=== PATIENT | female | born 1950 | race Caucasian/White ===

== ENCOUNTER 2016-09-19 09:12 | Inpatient (IN) | payer OTHER, MEDICARE ==
[~2016-09-19] VITALS: Ht 160 cm; Wt 46.7 kg
[~2016-09-19 09:12] MED LIST: ACEPHEN650 M1 PR; ACETAMINOPHEN325 M2 PO; ALBUTEROL0.09 MG/A1 INH; AUGMENTIN 875 M1 TAB PO; COLACE100 M1 PO; DIPHENOXYLATE-1 EACH PO; DRONABINOL2.5 M1 PO; DULCOLAX10 M1 RC; FAMOTIDINE20 M1 PO; FLAGYL250 M1 PO; FLEET ENEMA133 ML RC; FLORASTOR250 M1 PO; HEPARIN SO5000 UNIT/ SC; KLOR-CON 1010 ME1 PO; LEVOTHYROXINE100 MC1 PO; LEVOTHYROXINE112 MCG PO; LISINOPRIL40 M1 PO; LOPERAMIDE2 M2 PO; MAALOX ADVANCE1 EACH PO; MILK OF MA400 MG/52 PO; MULTI-DAY VITA1 EACH PO; NORVASC 5MG TAB5 MG PO; OMEPRAZOLE20 M2 PO; ONDANSETRON ODT4 M1 PO; ONDANSETRON4 MG/2 M3 IV; OXYCODONE HCL30 M1 PO; OXYCODONE-ACET1 EACH PO; OXYCONTIN30 M1 PO; PERCOCET 5-3251 EACH PO; PRAVACHOL40 M1 PO; PREVALITE PACKET4 GM PO; PROCHLORPERAZIN10 MG PO; PROMETH/CODEIN120 ML PO; REMERON15 M2 PO; SANCUSO1 EACH TOP; SENNA8.6 M3 PO; SIMETHICONE80 M1 PO; TYLENOL325 M1 PO; VANCOCIN HCL250 MG PO; VANCOMYCIN HCL1 G1 IV; VANCOMYCIN HCL5 G1 PO; WELLBUTRIN100 MG PO; XANAX0.25 M1 PO; XIFAXAN550 M1 PO; ZANTAC 7575 M1 PO; ZOFRAN ODT4 M1 SL
--- NOTE | 2016-09-19 09:25 | NUR ---
65 YEAR OLD FEMALE TO ER WITH FAMILY , PT HAS METASTATIC CANCER. PT HAS BEEN UNABLE TO EAT FOR 3 WEEKS, STATES THAT ANYTHING THAT SHE SWALLOWS COMES BACK UP. DENIES REFLUX AND HAS 10/10 PAIN IN ABDOMEN UP HER MID CHEST.
--- NOTE | 2016-09-19 09:34 | NUR ---
PT TO ROOM 1, ASSISTED TO STRETCHER. UNABLE TO STAND. CHANGED INTO GOWN. PROVIDED WARM BLANKETS. BEAR CAMPBELL IN FOR EVAL.
--- NOTE | 2016-09-19 09:40 | ED GENERAL ADULT ---
History of Present Illness General Chief Complaint: General Adult Stated Complaint: DECREASED APPETITE X 3WEEKS, WEAKNESS Source: patient, family, old records Exam Limitations: clinical condition Vital Signs & Intake/Output Vital Signs & Intake/Output Vital Signs Date Time Temp Pulse Resp B/P Pulse O2 O2 Flow FiO2 Ox Delivery Rate 09/19 1503 97.5 82 18 120/73 99 09/19 1319 98.1 76 18 138/71 100 09/19 1113 97.5 74 18 146/71 99 09/19 0921 98.0 110 18 116/79 92 Room Air Allergies Coded Allergies: ibuprofen (Intermediate, KIDNEY AND ABDOMINAL PAIN 04/15/16) Reconcile Medications Albuterol Sulfate (Proair Hfa) 90 MCG HFA.AER.AD 2 PUF INH Q4-6 PRN PRN SOB ( Reported) Alprazolam 0.25 MG TABLET 1 TAB PO DAILY NEEDED ANXIETY (Reported) Bupropion HCl (Wellbutrin) 100 MG TABLET 1 TAB PO BID DEPRESSION Diphenoxylate HCl/Atropine (Lomotil 2.5-0.025 MG Tablet) 2.5 MG-0.025 MG TABLET 1 TAB PO 4 TIMES/DAY DIARHEA (Reported) Dronabinol (Marinol) 2.5 MG CAPSULE 1 CAP PO EVERY 6HRS- NEEDED N/C ( Reported) Famotidine 40 MG/5 ML (8 MG/ML) ORAL.SUSP 40 MG PO BID GERD (Reported) Granisetron (Sancuso) 3.1 MG/24 HOUR PATCH.TDWK 1 PAT TOP UNKNOWN (Reported) Levothyroxine Sodium (Synthroid) 100 MCG TABLET 1 TAB PO DAILY THYROID ( Reported) Loperamide HCl (Imodium A-D) 2 MG CAPSULE 2 MG PO PRN PRN DIARRHEA (Reported) Multivitamin (Multivitamins) 1 EACH CAPSULE 1 TAB PO D SUPPLEMENT (Reported) Potassium Chloride (Klor-Con 10) 10 MEQ TABLET.ER 2 TAB PO DAILY HYPOKALEMIA Pravastatin Sodium 40 MG TABLET 1 TAB PO QPM CHOLESTEROL (Reported) Sucralfate (Carafate) 1 GRAM/10 ML ORAL.SUSP 10 ML PO 4 TIMES/DAY GASTRITIS ( Reported) 1 hour before food and bedtime Triage Note: 65 YEAR OLD FEMALE TO ER WITH FAMILY , PT HAS METASTATIC CANCER. PT HAS BEEN UNABLE TO EAT FOR 3 WEEKS, STATES THAT ANYTHING THAT SHE SWALLOWS COMES BACK UP. DENIES REFLUX AND HAS 10/10 PAIN IN ABDOMEN UP HER MID CHEST. Triage Nurses Notes Reviewed? yes Onset: Abrupt Duration: week(s):, getting worse Timing: recent history Injury Environment: home No Modifying Factors: none HPI: 65-year-old female, HTN/HLD/hypoT4/chronic back pain/anxiety & depression, C. 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 Patient reports that she's been having a lot of saliva coming up and has had a decrease in oral intake. Patient has been on liquid diet but is having difficulty with eating recently or taking any of her medications. She is supposed to be getting an outpatient endoscopy by Dr. Grant. He denies any diarrhea. Denies any fever or chills. General weakness. Is currently still on chemotherapy. (SUSAN SCHROEDER) Past History Travel History Traveled to [place] past 21 day No Medical History Any Pertinent Medical History? see below for history Neurological: NONE EENT: NONE Cardiovascular: hypertension, hyperlipidemia Respiratory: pulmonary metastases Gastrointestinal: C. 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 FH: myocardial infarction SISTER FH: multiple sclerosis MOTHER (Biologic mother- unknown). Hx Contributory? No (SUSAN SCHROEDER) Review of Systems Review of Systems Constitutional: Reports: see HPI. EENTM: Reports: no symptoms. Respiratory: Reports: no symptoms. Cardiovascular: Reports: see HPI. GI: Reports: see HPI. Genitourinary: Reports: no symptoms. Musculoskeletal: Reports: no symptoms. Skin: Reports: no symptoms. Neurological/Psychological: Reports: no symptoms. Hematologic/Endocrine: Reports: no symptoms. Immunologic/Allergic: Reports: no symptoms. All Other Systems: Reviewed and Negative (SUSAN SCHROEDER) Physical Exam Physical Exam General Appearance: lethargic, moderate distress, thin Head: atraumatic, normal appearance Eyes: Bilateral: normal appearance, EOMI. Ears, Nose, Throat: normal ENT inspection, hearing grossly normal Neck: normal inspection Respiratory: normal breath sounds, no respiratory distress Cardiovascular: regular rate/rhythm Gastrointestinal: soft Back: normal inspection Extremities: normal inspection Neurologic/Psych: awake, alert, oriented x 3, normal gait Skin: intact, normal color Core Measures ACS in differential dx? No CVA/TIA Diagnosis: No Severe Sepsis Present: No Septic Shock Present: No (SUSAN SCHROEDER) Progress Differential Diagnoses I considered the following diagnoses in my evaluation of the patient: Esophageal candidiasis, gastritis, esophageal metastatic disease, H. pylori, C. difficile, [place], Plan of Care: Orders Procedure Date/time Status Nothing by Mouth 09/20 B Active CBC WITHOUT DIFFERENTIAL 09/20 06 Active BASIC ELECTROLYTES PLUS BUN&CR 09/20 0600 Active Regular Diet 09/19 D Complete Vital Signs 09/19 1608 Active Teach/Educate 09/19 1608 Active Pain Treatment and Response 09/19 1608 Active Nutritional Intake, Monitor 09/19 1608 Active Isolation 09/19 1608 Active Intake & Output 09/19 1608 Active Patient Care Conference 09/19 1608 Active Activity/Ambulation 09/19 1608 Active OXYGEN SETUP (GEN) 09/19 1417 Active Saline Lock 09/19 1417 Active Admit to inpatient 09/19 1417 Active Vital Signs 09/19 1417 Active Activity/Ambulation 09/19 1417 Active Code Status 09/19 1351 Active Pathway - chart 09/19 1339 Active House Staff 09/19 1339 Active Patient Data 09/19 1339 Active Code Status 09/19 1339 Complete Patient Data 09/19 1308 Active Intake & Output 09/19 1014 Active BLOOD CULTURE 09/19 0950 Active URINALYSIS 09/19 0939 Active TROPONIN LEVEL 09/19 0939 Complete LACTIC ACID 09/19 0939 Complete COMPREHENSIVE METABOLIC PANEL 09/19 0939 Complete CBC WITHOUT DIFFERENTIAL 09/19 0939 Complete EKG 09/19 0939 Active VTE Mechanical Prophylaxis 09/19 UNK Active Current Medications Sig/Keny Start time Last Medication Dose Stop Time Status Admin Levothyroxine Sodium 0.1 MG DAILY 09/20 1000 AC (Synthroid) Potassium Chloride 20 MEQ DAILY 09/20 1000 AC (K-Dur) Pravastatin Sodium 40 MG DAILY 09/20 1000 AC (Pravachol) Omeprazole 40 MG DAILY AC 09/20 0700 AC (Prilosec) Bupropion HCl 100 MG BID 09/19 2200 AC (Wellbutrin) Lidocaine 15 ML TID 09/19 1604 AC (Xylocaine Viscous) Trimethobenzamide HCl 200 MG TID PRN 09/19 1515 AC (Tigan) Albuterol Sulfate 2 PUF Q4-6 PRN PRN 09/19 1400 AC (Ventolin) Dronabinol 2.5 MG EVERY 6HRS- NEED.. 09/19 1400 AC (Marinol) Sucralfate 1 GM 4 TIMES/DAY 09/19 1400 AC (Carafate Suspension) Acetaminophen 325 MG Q6 PRN 09/19 1345 AC (Tylenol) Acetaminophen 1,000 MG Q6P PRN 09/19 1345 AC (Ofirmev) Morphine Sulfate 2 MG Q4P PRN 09/19 1345 AC (Morphine) Laboratory Tests 09/19/16 1239: Lactic Acid Cancelled 09/19/16 1018: Anion Gap 6, Estimated GFR > 60, BUN/Creatinine Ratio 8.8, Glucose 81, Lactic Acid 1.4, Calcium 9.9, Total Bilirubin 1.0, AST 27, ALT 26, Alkaline Phosphatase 139 H, Troponin I < 0.01, Total Protein 5.9 L, Albumin 2.6 L, Globulin 3.3, Albumin/Globulin Ratio 0.8 L, CBC w Diff NO MAN DIFF REQ, RBC 3.04 L, MCV 88.0 , MCH 29.4, RDW 21.1 H, MPV 6.4 L, Gran % 60.4, Lymphocytes % 30.2, Monocytes % 8.4, Eosinophils % 0.8, Basophils % 0.2, Absolute Granulocytes 1.8, Absolute Lymphocytes 0.9 L, Absolute Monocytes 0.3, Absolute Eosinophils 0, Absolute Basophils 0, PUBS MCHC 33.4 Microbiology 09/19 1020 BLOOD: Blood Culture - RECD 09/19 1000 BLOOD: Blood Culture - RECD 09/19 938 BLOOD: Blood Culture - CAN Cancelled: Cancelled via OE: Per MD Decision 09/19 938 BLOOD: Blood Culture - CAN Cancelled: Cancelled via OE: Per MD Decision Diagnostic Imaging: Viewed by Me: CT Scan. Discussed w/RAD: CT Scan. Radiology Impression: SERVICE DATE: 09/19/16 EXAM TYPE: CAT - CT ABD & PELVIS W IV CONTRAST; CT CHEST W IV CONTRAST EXAMINATION: CT CHEST WITH CONTRAST CT ABDOMEN AND PELVIS WITH CONTRAST CLINICAL INFORMATION: Difficulty swallowing. History of uterine cancer. COMPARISON: 07/14/2016 TECHNIQUE: Multidetector volumetric CT imaging of the chest, abdomen, and pelvis was obtained after the administration of 94 mL of Optiray 320 intravenous contrast without immediate adverse reactions. Axial MIP volume rendering provided. Sagittal and coronal reformatted images were obtained. DLP: 347 mGy-cm FINDINGS: Previously demonstrated parenchymal nodules in the right upper lobe, middle lobe, and lower lobe have slightly decreased in size. There is a new area of consolidation peripherally in the right upper lobe abutting the lateral aspect of the major fissure which may represent pneumonia although a new neoplastic lesion as a possibility. There is a small right pleural effusion which is new. There is circumferential wall thickening of the mid and distal esophagus, approximately 9 cm in length to the gastroesophageal junction, which is new and most likely inflammatory/infectious rather than neoplastic. There is an air-fluid level within the esophagus. There is soft tissue stranding/thickening of the surrounding fat. Small pericardial effusion is similar. The liver, spleen, and pancreas are unremarkable. No biliary ductal dilatation. The adrenal glands appear normal. Stable large right renal cyst. A subcentimeter exophytic soft tissue attenuation lesion at the inferior pole of the left kidney is stable. Circumferential wall thickening of the colon has significantly improved, with persistent areas of wall thickening involving the ascending colon as well as a segment of the sigmoid colon. Scattered diverticulosis. No obstruction. Complex uterine masses do not appear significantly changed. L4 burst fracture is again demonstrated with marked narrowing of the central canal. Possible metastasis within the right aspect of S1, not significantly changed. IMPRESSION: There is new circumferential wall thickening of the mid/distal esophagus, approximately 9 cm in length extending to the gastroesophageal junction with surrounding soft tissue thickening/stranding which is most likely inflammatory/infectious, with esophageal air-fluid level. The colonic wall thickening has significantly improved, with persistent thickening of the ascending colon and a portion of the sigmoid. Similar-appearing complex uterine masses. Stable subcentimeter exophytic left renal lesion. L4 burst fracture with lytic destruction and marked central stenosis. Right upper lobe, middle lobe, and lower lobe nodules have slightly decreased in size. There is a new small area of airspace opacity in the posterolateral aspect of the right upper lobe, abutting the major fissure, which may represent pneumonia. DICTATED BY: JEROME OZUNA MD DATE/TIME DICTATED: 09/19/161351 [facility] CONSULTANT:TUTU DATE/TIME TRANSCRIBED:09/19/161351 Initial ED EKG: normal intervals, normal p-waves, normal QRS complex, normal sinus rhythm, rate (62) (SUSAN SCHROEDER) Departure Departure Disposition: STILL A PATIENT Condition: Stable Clinical Impression Primary Impression: Dysphagia Referrals: NAKIA LARES,PHU Vargas (PCP/Family) Departure Forms: Customer Survey General Discharge Information Admission Note Spoke With: TINY SIERRA MD Documentation of Exam: Documentation of any treatments & extenuating circumstances including Concerns Regarding Discharge (functional status, medication knowledge or non-compliance, living conditions, etc.) that warrant an admission rather than observation: Patient will require upper endoscopy and GI consultation. Patient not able to take in food. Patient will require IV hydration. Patient may require a PEG tube. Oncology consultation. Patient has abnormal findings on CT scan showinG thickening of the distal esophagus. (SUSAN SCHROEDER) PA/FEEDER WORKER POWER UNIT OPERATOR Co-Sign Statement Statement: ED Attending supervision documentation- x I saw and evaluated the patient. I have also reviewed all the pertinent lab results and diagnostic results. I agree with the findings and the plan of care as documented in the PA's/FEEDER WORKER POWER UNIT OPERATOR's documentation. [] I have reviewed the ED Record and agree with the PA's/FEEDER WORKER POWER UNIT OPERATOR's documentation. [] Additions or exceptions (if any) to the PAs/FEEDER WORKER POWER UNIT OPERATOR's note and plan are summarized below: [] (GERALDINE PERDUE,JANUSZ) Critical Care Note Critical Care Note Critical Care Time: non-applicable (SUSAN SCHROEDER)
[2016-09-19 10:38] LABS: ABSOLUTE BASOPHIL COUNT 0 /CUMM (0.0-0.2); ABSOLUTE EOSINOPHIL COUNT 0 /CUMM (0.0-0.7); ABSOLUTE GRANULOCYTE CT 1.8 /CUMM (1.4-6.5); ABSOLUTE LYMPH COUNT 0.9 /CUMM (1.2-3.4); ABSOLUTE MONOCYTE COUNT 0.3 /CUMM (0.10-0.60); BASOPHIL % 0.2 % (0.0-2.0); EOSINOPHIL % 0.8 % (0-5); GRANULOCYTE % 60.4 % (42.2-75.2); HEMATOCRIT 26.7 % (37-47); MEAN CORPUSCULAR HGB 29.4 PG (27.0-31.0); MEAN CORPUSCULAR HGB CONC 33.4 G/DL (33.0-37.0); MEAN PLATELET VOLUME 6.4 FL (7.4-10.4); PLATELET COUNT 276 /CUMM (130-400); RBC DISTRIBUTION WIDTH 21.1 % (11.5-14.5); RED BLOOD CELL CT 3.04 /CUMM (4.20-5.40); WHITE BLOOD CELL COUNT 3.1 /CUMM (4.8-10.8)
[2016-09-19] MEDS ORDERED: FAMOTIDINE40 MG/5 M1 PO (10:39)
[2016-09-19] MEDS ORDERED: ALPRAZOLAM0.25 M1 PO (10:40)
[2016-09-19] MEDS ORDERED: BUPROPION HCL100 M2 PO (10:40)
[2016-09-19] MEDS ORDERED: CARAFATE1 GM/10 M1 PO (10:43)
[2016-09-19] MEDS ORDERED: LOMOTIL 2.5-0.1 EACH PO (10:45)
[2016-09-19] MEDS ORDERED: MARINOL2.5 MG PO (10:46)
[2016-09-19] MEDS ORDERED: SYNTHROID100 MCG PO (10:47)
[2016-09-19] MEDS ORDERED: IMODIUM A-D2 M2 PO (10:47)
[2016-09-19] MEDS ORDERED: MULTIVITAMINS1 EAC8 PO (10:48)
[2016-09-19] MEDS ORDERED: PROAIR HFA8.5 GM INH (10:49)
[2016-09-19] MEDS ORDERED: PRAVASTATIN SOD40 M2 PO (10:49)
--- NOTE | 2016-09-19 12:00 | NUR ---
AWAITING POC/DISPO Informed waiting has been performed.
--- NOTE | 2016-09-19 12:15 | NUR ---
BEAR CAMPBELL IN TO REVIEW POC.
--- NOTE | 2016-09-19 12:30 | NUR ---
PLAN IS FOR ADMISSION. RESTING ON STRETCHER. Informed waiting has been performed.
--- NOTE | 2016-09-19 12:59 | NUR ---
PT TO CAT SCAN.
--- NOTE | 2016-09-19 13:17 | NUR ---
BACK FROM CAT SCAN
--- NOTE | 2016-09-19 13:42 | NUR ---
HOUSESTAFF IN FOR EVAL
--- NOTE | 2016-09-19 14:01 | History & Physical ---
See Addendum GIANCARLO PERDUE,[facility] 09/19/16 1400: General Information and HPI MD Statement: I have seen and personally examined MISBAH ALFREDO and documented this H&P. The patient is a 65 year old F who presented with a patient stated chief complaint of [pain with swallowing]. Source of Information: patient, old records Exam Limitations: no limitations History of Present Illness: Ms. 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 difficile positive, patient presented to ED with chief complaint of difficulty and painful swallowing for the last 3 weeks. Patient reported feeling pain at the lower chest close to epigastric area with swallowing, upon asking her if it's for solid or liquid, her answer was "nonspecific", she reported feeling severe pain upon swallowing and afterward she will start to spit saliva for symptomatic relief, denied nausea, vomiting, fever, positive history of chills. Patient denied any abdominal pain, diarrhea or constipation. She is following with Dr. Cavanaugh for uterine leiomyosarcoma on chemotherapy, last visit was last when he prescribed her PPI and sucralfate liquid but it didn't help, today she woke up with severe pain in her epigastric area even without eating anything and decided to come to ED for evaluation. Patient has an appointment with Dr. Smith next Sunday for dysphagia/ odynophagia. Allergies/Medications Allergies: Coded Allergies: ibuprofen (Intermediate, KIDNEY AND ABDOMINAL PAIN 04/15/16) Home Med list Albuterol Sulfate (Proair Hfa) 90 MCG HFA.AER.AD 2 PUF INH Q4-6 PRN PRN SOB ( Reported) Alprazolam 0.25 MG TABLET 1 TAB PO DAILY NEEDED ANXIETY (Reported) Bupropion HCl (Wellbutrin) 100 MG TABLET 1 TAB PO BID DEPRESSION Diphenoxylate HCl/Atropine (Lomotil 2.5-0.025 MG Tablet) 2.5 MG-0.025 MG TABLET 1 TAB PO 4 TIMES/DAY DIARHEA (Reported) Dronabinol (Marinol) 2.5 MG CAPSULE 1 CAP PO EVERY 6HRS- NEEDED N/C ( Reported) Famotidine 40 MG/5 ML (8 MG/ML) ORAL.SUSP 40 MG PO BID GERD (Reported) Granisetron (Sancuso) 3.1 MG/24 HOUR PATCH.TDWK 1 PAT TOP UNKNOWN (Reported) Levothyroxine Sodium (Synthroid) 100 MCG TABLET 1 TAB PO DAILY THYROID ( Reported) Loperamide HCl (Imodium A-D) 2 MG CAPSULE 2 MG PO PRN PRN DIARRHEA (Reported) Multivitamin (Multivitamins) 1 EACH CAPSULE 1 TAB PO D SUPPLEMENT (Reported) Potassium Chloride (Klor-Con 10) 10 MEQ TABLET.ER 2 TAB PO DAILY HYPOKALEMIA Pravastatin Sodium 40 MG TABLET 1 TAB PO QPM CHOLESTEROL (Reported) Sucralfate (Carafate) 1 GRAM/10 ML ORAL.SUSP 10 ML PO 4 TIMES/DAY GASTRITIS ( Reported) 1 hour before food and bedtime Past History Travel History Traveled to [place] past 21 day No Medical History Neurological: NONE EENT: NONE Cardiovascular: hypertension, hyperlipidemia Respiratory: pulmonary metastases Gastrointestinal: C. 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 FH: myocardial infarction SISTER FH: multiple sclerosis MOTHER (Biologic mother- unknown). Psychosocial History Who Do You Live With? self (2 dtrs live closeby) Services at Home: None Primary Language: Italian ETOH Use: denies use Illicit Drug Use: denies illicit drug use Living Will? no Power of Cnc Manager/HCP? no Functional Ability ADLs Independent: dressing, eating, toileting. Needs Assist: bathing. Ambulation: independent IADLs Independent: telephone. Needs Assist: shopping, housework, finances, food prep, transportation, medication admin. Review of Systems Review of Systems Constitutional: Reports: see HPI. Exam & Diagnostic Data Last 24 Hrs of Vital Signs/I&O Vital Signs Date Time Temp Pulse Resp B/P Pulse O2 O2 Flow FiO2 Ox Delivery Rate 09/19 1503 97.5 82 18 120/73 99 09/19 1319 98.1 76 18 138/71 100 04/04 1113 97.5 74 18 146/71 99 09/19 0921 98.0 110 18 116/79 92 Room Air Intake & Output 09/19 1600 09/19 0800 04 0000 Intake Total 1000 Output Total Balance 1000 Intake, IV 1000 Patient 47.627 kg Weight Physical Exam General Appearance Alert, Oriented X3, Cooperative, No Acute Distress, cachectic Skin No Rashes, No Breakdown, No Significant Lesion HEENT Atraumatic, PERRLA, EOMI, Mucous Membr. moist/pink Neck Supple, No JVD, portal line the right chest, no signs of inflammation at the exit site Cardiovascular Regular Rate, Normal S1, Normal S2, No Murmurs Lungs Clear to Auscultation, Normal Air Movement Abdomen Normal Bowel Sounds, Soft, No Tenderness Neurological Normal Gait, Normal Speech, Strength at 5/5 X4 Ext, Normal Tone, Sensation Intact, Cranial Nerves 3-12 NL, Reflexes 2+ Extremities No Clubbing, No Cyanosis, No Edema, Normal Pulses Assessment/Plan Assessment: Ms. 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 difficile positive, patient presented to ED with chief complaint of difficulty and painful swallowing for the last 3 weeks. On admission Vital signs Temperature 90.8, pulse 110, blood pressure 116/78, respiratory rate 18 with saturation 92% on room air Labs CBC 3.1, H&H 8.9/26.7, Platelet count 276, sodium 135, potassium 3.4, BUN/ creatinine 7/0.8, glucose 81, calcium 9.9, lactic acid 1.4, AST 27, ALT 26, alkaline phosphatase 159, albumin 2.6, troponin less than 0.[address] chest with out IV contrast, CT abdomen and pelvis with contrast 10/02 There is new circumferential wall thickening of the mid/distal esophagus, approximately 9 cm in length extending to the gastroesophageal junction with surrounding soft tissue thickening/stranding which is most likely inflammatory/infectious, with esophageal air-fluid level. The colonic wall thickening has significantly improved, with persistent thickening of the ascending colon and a portion of the sigmoid. Similar-appearing complex uterine masses. Stable subcentimeter exophytic left renal lesion. L4 burst fracture with lytic destruction and marked central stenosis. Right upper lobe, middle lobe, and lower lobe nodules have slightly decreased in size. There is a new small area of airspace opacity in the posterolateral aspect of the right upper lobe, abutting the major fissure, which may represent pneumonia. Problem list #Uterine leiomyosarcoma stage IV #Metastatic disease #Electrolyte imbalance #Abnormal CBC #Hypothyroidism #Hypertension and hyperlipidemia #Uterine leiomyosarcoma stage IV -Lung and bone metastasis currently on chemotherapy single agent gemcitabine -Elevated alkaline phosphatase mostly due to bone metastasis -Recent onset of odontophagia and dysphagia not responding to PPI or Carafate -CT scan revealed new circumferential wall thickening of the mid/distal esophagus, approximately 9 cm in length extending to the gastroesophageal junction with surrounding soft tissue thickening/stranding which is most likely inflammatory/infectious -Admit to general medical floor -We will obtain oncology consultation -We'll obtain GI consultation for possible endoscopy -Consider symptomatic relief with lidocaine 2% solution, omeprazole 40 mg -Swallowing evaluation and nutritional evaluation -Nothing by mouth for now -D5 half-normal saline 75 mL/h (recent EKG 2015 normal left ventricular ejection fraction, stage I diastolic dysfunction) #Electrolyte imbalance -We'll replete potassium with 40 mEq -We'll continue home dose of potassium 20 mEq daily -Repeat BMP tomorrow and replete accordingly #Abnormal CBC -WBC 3.1, absolute neutrophilia count 1.8 -Microcytic anemia, MCV 88, due to chronic disease on chemotherapy #Hypothyroidism -Continue levothyroxine 100 micrograms daily #Hyperlipidemia -Continue pravastatin 40 mg daily #Depression and anxiety -Continue alprazolam 0.25 mg daily as needed -Continue bupropion 100 mg twice a day DVT prophylaxis Lovenox Diet nothing by mouth Code full Consultation GI, oncology As Ranked By This Provider Problem List: 1. Hyperlipidemia 2. Hypothyroidism Core Measures/Miscellaneous Acute Coronary Syndrome ACS Diagnosis: No Cerebrovascular Accident CVA/TIA Diagnosis: No Congestive Heart Failure CHF Diagnosis: No Venous Thromboembolism VTE Risk Factors: Age > 40 [facility] prophylaxis d/t: No contraindications No VTE Pharm Prophylaxis d/t: No contraindications VTE Diagnosis: No VTE Type: NONE VTE Confirmed by (Test): NONE Severe Sepsis Severe Sepsis Present: No BC x2: Yes Lactic Acid x2: Yes IV ABX Broad Spectrum: Yes Septic Shock Septic Shock Present: No Miscellaneous Documentation Attending Case Discussed With: DIANNE TINSLEY M.D Primary Care Physician: PHU AWAN Patient sees these Specialists Oncology, GI Level of Patient Care: General Medicine ANNELISE JON 09/19/16 1426: Resident Review Statement Resident Statement: examined this patient, discussed with geotechnical intern Other Findings: Patient is a 65 y/o F with PMHx of recently diagnosed leiomyosarcoma of the uterus with bone and lung mets s/p 4 cycles of chemotherapy with adriamycin and cyclophophamide and RT lasr chemotherapy 2 weeks ago ( per patient) presents to the ED with a chief complaint nonspecific chest patient along with dysphagia and odynophagia. Patient is currently undergoing chemotherapy for stage IV uterine cancer with Dr. Barnes. Her last chemotherapy was 2 weeks ago. She skipped her chemotherapy last week because of low blood counts. Patient states that for the past few weeks she has been experiencing dysphagia and odynophagia to solid and liquid food. The patient can initiate swallow and the dysphagia and pain starts once the food reaches the middle of her chest. Denies any burning sensation. No history of GERD. Recently she has been on a liquid diet but is finding it difficult to swallow or take her medications. She stopped taking her medications 2 weeks back due to this difficulty. She denies any fever, chest pressure, palpitations, abdominal pain,headache, dizziness, Urinary or bowel symptoms. Has been feeling very weak and lethargic due to decreased by mouth intake. she has been nauseous and name vomiting. Vomitus mostly consists of mucous as she hadn't had much of an oral intake. Admits to some chills. She was supposed to get an outpatient endoscopy with Dr. Grant. Denies having any previous endoscopies. She reported her complaints to her oncologist Dr. Cavanaugh put her on Carafate which did not alleviate her symptoms. She was then referred to Dr. Grant by him. At baseline patient lives with her daughter who takes care of her. 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 CODE STATUS has been addressed with her multiple times due to her guarded prognosis and she prefers to be full code. Vitals in the ED, temperature 90.8, pulse 110, respiration 18, blood pressure 116/79, saturating 92% on room air. Labs showedwhite count of 3.1, H&H of 8.9/26.7(baseline),sodium 135, potassium 3.4, UA pending. EKG showed normal sinus rhythm with a heart rate of 64 2, QTC of 468 CT CHEST :l There is new circumferential wall thickening of the mid/distal esophagus,approximately 9 cm in length extending to the gastroesophageal junction with surrounding soft tissue thickening/stranding which is most likely inflammatory/infectious, with esophageal air-fluid level. The colonic wall thickening has significantly improved, with persistent thickening of the ascending colon and a portion of the sigmoid. Patient received IV Protonix and Zofran in the ED Physical examination: Gen.:Cachectic looking, awake alert and oriented 3 HEENT: PERRLA, EOMI Chest:Chemo-Port seen on the right chest wall clean and intact, and clear breath sounds CVS: S1S2 heard, No murmurs rubs or gallops Extremities: No edema, normal pulses, skin tag seen over the right foot on the dorsal surface Assessment * Dysphagia and Odynophagia:? Metastasis Vs Esophagitis Vs GERD * Uterine leiomyosarcoma stage 4 on chemotherapy with adriamycin and cyclophophamide * Anemia * Hypokalemia * Poor PO intake Plan * Patient is being admitted to [facility] for a possible endoscopy in a.m. * she might eventually need a PEG tube for nutrition. * Gentle hydration with D5 half normal saline at 75 mL an hour * ContinueIV Protonix dailyand Carafate * Continue IV Tigan for nausea(QTC 468) * GI consult appreciated * Oncology consult with Dr. Barnes. Chemotherapy on hold due to low blood counts last week. * Patient's anemia is chronic and she is also on chemotherapy * Continue potassium supplementation * continue home medications levothyroxine, statin, Carafate, Wellbutrin, dronabino and albuterol * Pain control with Tylenol IV and IV morphine * DVT prophylaxis subcutaneous Lovenox * Regular diet, nothing by mouth now for EGD in a.m. * Patient is currently full code. Discuss goals of care with family in light of her poor prognosis. DIANNE TINSLEY MD 09/20/16 0801: Attending MD Review Statement Attending Statement Attending MD Statement: examined this patient, discuss w/resident/PA/GI PHYSICIAN, agreed w/resident/PA/GI PHYSICIAN, reviewed EMR data (avail), discussed with nursing, amended to note Attending Assessment/Plan: Patient is a 65-year-old female with history of metastatic leiomyosarcoma on chemotherapy who presents with worsening odynophagia for the past few weeks. Due to this she has had decreasing oral intake and increasing lethargy. She was initially scheduled for an outpatient EGD however due to worsening symptoms she presents here for evaluation. CT imaging in the emergency room suggests inflammation of the lower esophagus. There is no evidence of obstructive disease noted on imaging. On examination she is very cachectic, lethargic but not in acute distress. She has no palpable cervical lymphadenopathy. Recommendations: -Admit to the inpatient general medical service -Clear liquids as tolerated. -Nothing by mouth past midnight for EGD in the a.m. -Provide with viscous lidocaine orally 3 times a day [id number]. -Oncology evaluation appreciated. Patient remains a full code per discussions with the oncology service.
--- NOTE | 2016-09-19 14:20 | CT SCAN REPORT ---
EXAMINATION: CT CHEST WITH CONTRAST CT ABDOMEN AND PELVIS WITH CONTRAST CLINICAL INFORMATION: Difficulty swallowing. History of uterine cancer. COMPARISON: 07/14/2016 TECHNIQUE: Multidetector volumetric CT imaging of the chest, abdomen, and pelvis was obtained after the administration of 94 mL of Optiray 320 intravenous contrast without immediate adverse reactions. Axial MIP volume rendering provided. Sagittal and coronal reformatted images were obtained. DLP: 347 mGy-cm FINDINGS: Previously demonstrated parenchymal nodules in the right upper lobe, middle lobe, and lower lobe have slightly decreased in size. There is a new area of consolidation peripherally in the right upper lobe abutting the lateral aspect of the major fissure which may represent pneumonia although a new neoplastic lesion as a possibility. There is a small right pleural effusion which is new. There is circumferential wall thickening of the mid and distal esophagus, approximately 9 cm in length to the gastroesophageal junction, which is new and most likely inflammatory/infectious rather than neoplastic. There is an air-fluid level within the esophagus. There is soft tissue stranding/thickening of the surrounding fat. Small pericardial effusion is similar. The liver, spleen, and pancreas are unremarkable. No biliary ductal dilatation. The adrenal glands appear normal. Stable large right renal cyst. A subcentimeter exophytic soft tissue attenuation lesion at the inferior pole of the left kidney is stable. Circumferential wall thickening of the colon has significantly improved, with persistent areas of wall thickening involving the ascending colon as well as a segment of the sigmoid colon. Scattered diverticulosis. No obstruction. Complex uterine masses do not appear significantly changed. L4 burst fracture is again demonstrated with marked narrowing of the central canal. Possible metastasis within the right aspect of S1, not significantly changed. IMPRESSION: There is new circumferential wall thickening of the mid/distal esophagus, approximately 9 cm in length extending to the gastroesophageal junction with surrounding soft tissue thickening/stranding which is most likely inflammatory/infectious, with esophageal air-fluid level. The colonic wall thickening has significantly improved, with persistent thickening of the ascending colon and a portion of the sigmoid. Similar-appearing complex uterine masses. Stable subcentimeter exophytic left renal lesion. L4 burst fracture with lytic destruction and marked central stenosis. Right upper lobe, middle lobe, and lower lobe nodules have slightly decreased in size. There is a new small area of airspace opacity in the posterolateral aspect of the right upper lobe, abutting the major fissure, which may represent pneumonia.
--- NOTE | 2016-09-19 14:30 | NUR ---
PT'S ONCOLOGIST AT BEDSIDE, DR DAMON.
--- NOTE | 2016-09-19 14:57 | NUR ---
PT GOING TO ROOM 237. REPORT TO SELVIN PERALTA ON 2NA.
--- NOTE | 2016-09-19 15:12 | NUR ---
PT TO FLOOR VIA STRETCHER. ALL PAPERWORK AND BELONGINGS SENT. CLINICAL STATUS UNCHANGED.
--- NOTE | 2016-09-19 15:14 | Cons- Oncology ---
General Information and HPI Consulting Request Date of Consult: 09/19/16 Requested By: DIANNE TINSLEY M.D Reason for Consult: metastatic leiomyosarcoma Source of Information: patient, old records Exam Limitations: no limitations History of Present Illness: Ms. 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 Pain has been ongoing for a few weeks. She has been tried on Carafate and pantoprazole. She is not able to tolerate oral pill because of the pain. Carafate did not seem to help. She reports pain was getting worse and making it difficult for her to swallow. Pain is in the epigastric area and is worse with eating or swallowing. Ice cream does help with the symptoms. She has some emesis of clear output. She denies any hematemesis, hemoptysis, melena, or hematochezia. She has loss some weight. She has not been able to eat much now. She denies any diarrhea. Due to her esophageal symptoms, she was to see Dr. Holcomb as an out patient for evaluation next week. In the ED, she had CT scan done to restage her disease and evaluate for abdominal pain. CT demonstrated new circumferential wall thickening of the mid/ distal esophagus, approximately 9 cm in length extending to the gastroesophageal junction with surrounding soft tissue thickening/stranding which is most likely inflammatory/infectious with esophageal air-fluid level. Right upper lobe, middle lobe, and lower lobe nodules have slightly decreased in size. There is a new small area of airspace opacity in the posterolateral aspect of the right upper lobe, abutting the major fissure. She feels a little better in the ED right now. Allergies/Medications Allergies: Coded Allergies: ibuprofen (Intermediate, KIDNEY AND ABDOMINAL PAIN 04/15/16) Home Med List: Albuterol Sulfate (Proair Hfa) 90 MCG HFA.AER.AD 2 PUF INH Q4-6 PRN PRN SOB ( Reported) Alprazolam 0.25 MG TABLET 1 TAB PO DAILY NEEDED ANXIETY (Reported) Bupropion HCl (Wellbutrin) 100 MG TABLET 1 TAB PO BID DEPRESSION Diphenoxylate HCl/Atropine (Lomotil 2.5-0.025 MG Tablet) 2.5 MG-0.025 MG TABLET 1 TAB PO 4 TIMES/DAY DIARHEA (Reported) Dronabinol (Marinol) 2.5 MG CAPSULE 1 CAP PO EVERY 6HRS- NEEDED N/C ( Reported) Famotidine 40 MG/5 ML (8 MG/ML) ORAL.SUSP 40 MG PO BID GERD (Reported) Granisetron (Sancuso) 3.1 MG/24 HOUR PATCH.TDWK 1 PAT TOP UNKNOWN (Reported) Levothyroxine Sodium (Synthroid) 100 MCG TABLET 1 TAB PO DAILY THYROID ( Reported) Loperamide HCl (Imodium A-D) 2 MG CAPSULE 2 MG PO PRN PRN DIARRHEA (Reported) Multivitamin (Multivitamins) 1 EACH CAPSULE 1 TAB PO D SUPPLEMENT (Reported) Potassium Chloride (Klor-Con 10) 10 MEQ TABLET.ER 2 TAB PO DAILY HYPOKALEMIA Pravastatin Sodium 40 MG TABLET 1 TAB PO QPM CHOLESTEROL (Reported) Sucralfate (Carafate) 1 GRAM/10 ML ORAL.SUSP 10 ML PO 4 TIMES/DAY GASTRITIS ( Reported) 1 hour before food and bedtime Current Medications: Current Medications Sig/Keny Start time Last Medication Dose Route Stop Time Status Admin Acetaminophen 325 MG Q6 PRN 09/19 1345 AC PO Acetaminophen 1,000 MG Q6P PRN 09/19 1345 AC IV Albuterol Sulfate 2 PUF Q4-6 PRN PRN 09/19 1400 AC INH Alprazolam 0.25 MG DAILY NEEDED PRN 09/19 1400 AC PO 09/26 1359 Bupropion HCl 100 MG BID 09/19 2200 AC PO Dextrose/Sodium 1,000 ML Q13H 09/19 1400 AC 09/19 Chloride IV 1430 Dronabinol 2.5 MG EVERY 6HRS- NEED.. 09/19 1400 AC PO Enoxaparin Sodium 0 .STK-MED ONE 09/19 1430 DC SC Enoxaparin Sodium 40 MG DAILY 09/19 1338 AC 09/19 SC 1430 Levothyroxine Sodium 0.1 MG DAILY 09/20 1000 AC PO Morphine Sulfate 2 MG Q4P PRN 09/19 1345 AC IV Omeprazole 40 MG DAILY AC 09/20 0700 AC PO Ondansetron HCl 4 MG Q6P PRN 09/19 1400 DC IV Ondansetron HCl 0 .STK-MED ONE 09/19 1019 DC .ROUTE Ondansetron HCl 4 MG ONCE ONE 09/19 0845 DC 09/19 IV 09/19 0946 1020 Pantoprazole Sodium 0 .STK-MED ONE 09/19 1019 DC IV Pantoprazole Sodium 40 MG ONCE ONE 09/19 0945 DC 09/19 IV 09/19 0946 1020 Potassium Chloride 20 MEQ DAILY 09/20 1000 AC PO Pravastatin Sodium 40 MG DAILY 09/20 1000 AC PO Sodium Chloride 1,000 ML ONCE ONE 09/19 0945 AC 09/19 IV 09/19 1624 1020 Sucralfate 1 GM 4 TIMES/DAY 09/19 1400 AC PO Trimethobenzamide HCl 200 MG TID PRN 09/19 1515 AC IM Review of Systems Review of Systems Constitutional: Reports: weakness. Denies: chills, fever. Cardiovascular: Denies: chest pain. Respiratory: Denies: short of breath. GI: Reports: abdominal pain (epigastric), vomiting. Denies: bloating, diarrhea, distention, melena, nausea. Genitourinary: Denies: dysuria. Musculoskeletal: Denies: back pain. Neurological/Psychological: Reports: anxiety, depressed. Hematologic/Endocrine: Denies: bruising. Immunologic/Allergic: Denies: lymphadenopathy. All Other Systems: Reviewed and Negative Past History Travel History Traveled to [place] past 21 day No Medical History Neurological: NONE EENT: NONE Cardiovascular: hypertension, hyperlipidemia Respiratory: pulmonary metastases Gastrointestinal: C. 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 FH: myocardial infarction SISTER FH: multiple sclerosis MOTHER (Biologic mother- unknown). Psychosocial History Who Do You Live With? self (2 dtrs live closeby) Services at Home: None Primary Language: Hungarian ETOH Use: denies use Illicit Drug Use: denies illicit drug use Living Will? no Power of Telemarketing Agent/HCP? no Functional Ability ADLs Independent: dressing, eating, toileting. Needs Assist: bathing. Ambulation: independent IADLs Independent: telephone. Needs Assist: shopping, housework, finances, food prep, transportation, medication admin. Exam & Diagnostic Data Vital Signs and I&O Vital Signs Date Time Temp Pulse Resp B/P Pulse O2 O2 Flow FiO2 Ox Delivery Rate 09/19 1319 98.1 76 18 138/71 100 09/19 1113 97.5 74 18 146/71 99 / 0921 98.0 110 18 116/79 92 Room Air Intake & Output 09/19 1600 09/19 0800 09/19 0000 Intake Total 1000 Output Total Balance 1000 Intake, IV 1000 Patient 47.627 kg Weight Physical Exam General Appearance: alert, awake, anxious, comfortable, thin, tearful Head: atraumatic, normal appearance Eyes: Bilateral: PERRL. Ears, Nose, Throat: normal pharynx, moist mucus membranes Neck: normal inspection, supple Respiratory: normal breath sounds, chest non-tender, no respiratory distress Cardiovascular: regular rate/rhythm Gastrointestinal: normal bowel sounds, soft, non-tender, no organomegaly Extremities: normal inspection, no edema Neurologic/Psych: alert, oriented x 3, tearful Lymphatic: no anterior cervical ok Other Physical Findings: right chest port access and without tenderness Last 48 Hours of Lab Results: Laboratory Tests 09/19 09/19 1239 1018 Chemistry Sodium (137 - 145 mmol/L) 135 L Potassium (3.5 - 5.1 mmol/L) 3.4 L Chloride (98 - 107 mmol/L) 103 Carbon Dioxide (22 - 30 mmol/L) 27 Anion Gap (5 - 16) 6 BUN (7 - 17 mg/dL) 7 Creatinine (0.5 - 1.0 mg/dL) 0.8 Estimated GFR (>60 ml/min) > 60 BUN/Creatinine Ratio (7 - 25 %) 8.8 Glucose (65 - 99 mg/dL) 81 Lactic Acid (0.7 - 2.1 mmol/L) Cancelled 1.4 Calcium (8.4 - 10.2 mg/dL) 9.9 Total Bilirubin (0.2 - 1.3 mg/dL) 1.0 AST (14 - 36 U/L) 27 ALT (9 - 52 U/L) 26 Alkaline Phosphatase (<127 U/L) 139 H Troponin I (< 0.11 ng/ml) < 0.01 Total Protein (6.3 - 8.2 g/dL) 5.9 L Albumin (3.5 - 5.0 g/dL) 2.6 L Globulin (1.9 - 4.2 gm/dL) 3.3 Albumin/Globulin Ratio (1.1 - 2.2 %) 0.8 L Hematology CBC w Diff NO MAN DIFF REQ WBC (4.8 - 10.8 /CUMM) 3.1 L RBC (4.20 - 5.40 /CUMM) 3.04 L Hgb (12.0 - 16.0 G/DL) 8.9 L Hct (37 - 47 %) 26.7 L MCV (81.0 - 99.0 FL) 88.0 MCH (27.0 - 31.0 PG) 29.4 RDW (11.5 - 14.5 %) 21.1 H Plt Count (130 - 400 /CUMM) 276 MPV (7.4 - 10.4 FL) 6.4 L Gran % (42.2 - 75.2 %) 60.4 Lymphocytes % (20.5 - 51.1 %) 30.2 Monocytes % (1.7 - 9.3 %) 8.4 Eosinophils % (0 - 5 %) 0.8 Basophils % (0.0 - 2.0 %) 0.2 Absolute Granulocytes (1.4 - 6.5 /CUMM) 1.8 Absolute Lymphocytes (1.2 - 3.4 /CUMM) 0.9 L Absolute Monocytes (0.10 - 0.60 /CUMM) 0.3 Absolute Eosinophils (0.0 - 0.7 /CUMM) 0 Absolute Basophils (0.0 - 0.2 /CUMM) 0 PUBS MCHC (33.0 - 37.0 G/DL) 33.4 Imaging/Other Studies: CT chest/abdomen/pelvis 09/19/2016: There is new circumferential wall thickening of the mid/distal esophagus, approximately 9 cm in length extending to the gastroesophageal junction with surrounding soft tissue thickening/stranding which is most likely inflammatory/ infectious, with esophageal air-fluid level. The colonic wall thickening has significantly improved, with persistent thickening of the ascending colon and a portion of the sigmoid. Similar-appearing complex uterine masses. Stable subcentimeter exophytic left renal lesion. L4 burst fracture with lytic destruction and marked central stenosis. Right upper lobe, middle lobe, and lower lobe nodules have slightly decreased in size. There is a new small area of airspace opacity in the posterolateral aspect of the right upper lobe, abutting the major fissure, which may represent pneumonia. Assessment/Plan Assessment: Ms. 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 She has been having symptoms for a few weeks without improvement with Carafate and pantoprazole. Restaging scan with CT chest, abdomen, and pelvis were done today by ED. This demonstrated stable uterine mass and slightly improved lung nodules. There is an area in the RUL which is concerning for pneumonia versus neoplastic. It is unlikely neoplastic given the stability/improvement of the other lesions. She seems to have some response to therapy. There was thickening of the distal esophagus. This is likely inflammatory versus infectious. It is reasonable to have gastroenterology evaluation (Dr. Holcomb previously saw her and was to see her in clinic next Sunday) of the thickening. She should have nutritional evaluation in addition to PT/OT. Recommendations: 1. Nutritional evaluation 2. Gastroenterology evaluation of esophageal thickening with possible endoscopy exam 3. PT/OT Problem List: 1. Dysphagia 2. Uterine leiomyosarcoma 3. Malnutrition 4. Abdominal pain 5. Leukopenia due to antineoplastic chemotherapy Other Findings/Comments: Please call [phone] with any questions or concerns Consult Acknowledgment - Thank you for your consult request.
--- NOTE | 2016-09-19 15:30 | NUR ---
pt arrived to floor via stretcher, AO, RA, C/O WEAKNESS BUT OOB W/ ASSIST, RCW PORT IN PLACE, FLUIDS RUNNING, NO C/O PAIN, TOLERATING ICE CHIPS, ADMISSION ASSESSMENT COMPLETE, PER DR. LAUREANO JAUREGUI NOT NEEDED DUE TO PT ON LOVENOX. FALL PRECAUTIONS IN PLACE, ORIENTED TO ROOM AND CALL LIGHT, VSS. WILL CONTINUE TO MONITOR.
[2016-09-19 17:27] VITALS: BP 126/72
--- NOTE | 2016-09-19 18:23 | Cons- Gastroenterology ---
General Information and HPI Consulting Request Date of Consult: 09/19/16 Requested By: DIANNE TINSLEY M.D Reason for Consult: Odynophagia Source of Information: patient, old records History of Present Illness: The patient has known metastatic leiomyosarcoma for which she is on chemotherapy (gemcitabine). She now presents with 3 weeks of progressive painful swallowing, as well as near constant lower chest/epigastric discomfort. She is been placed on PPI and sucralfate without relief. At this point she cannot swallow even liquids without significant pain. Solid food occasionally sticks as well. There is occasional vomiting. She has lost weight. She admitted with dehydration, and CT scan demonstrating esophagitis. She had a recent hospitalization for diarrhea and was treated for C. difficile colitis; there has been no recurrent diarrhea. There has been no blood per rectum. The patient does not have a history of GERD, or previous severe heartburn. Allergies/Medications Allergies: Coded Allergies: ibuprofen (Intermediate, KIDNEY AND ABDOMINAL PAIN 04/15/16) Home Med List: Albuterol Sulfate (Proair Hfa) 90 MCG HFA.AER.AD 2 PUF INH Q4-6 PRN PRN SOB ( Reported) Alprazolam 0.25 MG TABLET 1 TAB PO DAILY NEEDED ANXIETY (Reported) Bupropion HCl (Wellbutrin) 100 MG TABLET 1 TAB PO BID DEPRESSION Diphenoxylate HCl/Atropine (Lomotil 2.5-0.025 MG Tablet) 2.5 MG-0.025 MG TABLET 1 TAB PO 4 TIMES/DAY DIARHEA (Reported) Dronabinol (Marinol) 2.5 MG CAPSULE 1 CAP PO EVERY 6HRS- NEEDED N/C ( Reported) Famotidine 40 MG/5 ML (8 MG/ML) ORAL.SUSP 40 MG PO BID GERD (Reported) Granisetron (Sancuso) 3.1 MG/24 HOUR PATCH.TDWK 1 PAT TOP UNKNOWN (Reported) Levothyroxine Sodium (Synthroid) 100 MCG TABLET 1 TAB PO DAILY THYROID ( Reported) Lidocaine HCl (Lidocaine HCl Viscous) 2 % SOLUTION 15 ML PO Q2 HRS NEEDED PRN dysphagia Multivitamin (Multivitamins) 1 EACH CAPSULE 1 TAB PO D SUPPLEMENT (Reported) Oxycodone HCl/Acetaminophen (Percocet 5-325 MG Tablet) 5 MG-325 MG TABLET 1 TAB PO Q6 PRN PAIN SCALE 7-10 (SEVERE) Polyethylene Glycol 3350 (Miralax) 17 GRAM/DOSE POWDER 17 GM PO DAILY PRN constipation Potassium Chloride (Klor-Con 10) 10 MEQ TABLET.ER 2 TAB PO DAILY HYPOKALEMIA Pravastatin Sodium 40 MG TABLET 1 TAB PO QPM CHOLESTEROL (Reported) Sucralfate (Carafate) 1 GRAM/10 ML ORAL.SUSP 10 ML PO 4 TIMES/DAY GASTRITIS ( Reported) 1 hour before food and bedtime Tramadol HCl 50 MG TABLET 25 MG PO Q6P PRN PAIN SCALE 4-6 (MODERATE) Current Medications: Current Medications Sig/Keny Start time Last Medication Dose Route Stop Time Status Admin Acetaminophen 325 MG Q6 PRN 09/19 1345 AC PO Acetaminophen 1,000 MG Q6P PRN 09/19 1345 AC IV Albuterol Sulfate 2 PUF Q4-6 PRN PRN 09/19 1400 AC INH Alprazolam 0.25 MG DAILY NEEDED PRN 09/19 1400 AC 09/19 PO 09/26 1359 1607 Bupropion HCl 100 MG BID 09/19 2200 AC PO Dextrose/Sodium 1,000 ML Q13H 09/19 1400 AC 09/19 Chloride IV 1430 Dronabinol 2.5 MG EVERY 6HRS- NEED.. 09/19 1400 AC PO Enoxaparin Sodium 0 .STK-MED ONE 09/19 1430 DC SC Enoxaparin Sodium 40 MG DAILY 09/19 1338 AC 09/19 SC 1430 Levothyroxine Sodium 0.1 MG DAILY 09/20 1000 AC PO Lidocaine 15 ML TID 09/19 1604 AC 09/19 PO 1813 Morphine Sulfate 2 MG Q4P PRN 09/19 1345 AC IV Omeprazole 40 MG DAILY AC 09/20 0700 AC PO Ondansetron HCl 4 MG Q6P PRN 09/19 1400 DC IV Ondansetron HCl 0 .STK-MED ONE 09/19 1019 DC .ROUTE Ondansetron HCl 4 MG ONCE ONE 09/19 0945 DC 09/19 IV 09/19 0946 1020 Pantoprazole Sodium 0 .STK-MED ONE 09/19 1019 DC IV Pantoprazole Sodium 40 MG ONCE ONE 09/19 0945 DC 09/19 IV 09/19 0946 1020 Potassium Chloride 20 MEQ DAILY 09/20 1000 AC PO Potassium Chloride 40 MEQ ONCE ONE 09/19 1515 DC PO 09/19 1516 Pravastatin Sodium 40 MG DAILY 09/20 1000 AC PO Sodium Chloride 1,000 ML ONCE ONE 09/19 0945 DC 09/19 IV 09/19 1624 1020 Sucralfate 1 GM 4 TIMES/DAY 09/19 1400 AC 09/19 PO 1813 Trimethobenzamide HCl 200 MG TID PRN 09/19 1515 AC IM Past History Travel History Traveled to [place] past 21 day No Medical History Blood Transfusion Hx: Yes Neurological: NONE EENT: NONE Cardiovascular: hypertension, hyperlipidemia Respiratory: pulmonary metastases Gastrointestinal: C. 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 FH: myocardial infarction SISTER FH: multiple sclerosis MOTHER (Biologic mother- unknown). Psychosocial History Where Do You Live? Home Who Do You Live With? self (2 dtrs live closeby) Services at Home: Nursing Primary Language: Mongolian Smoking Status: Never Smoked ETOH Use: denies use Illicit Drug Use: denies illicit drug use Living Will? no Power of Electronic Systems Security Assessment/HCP? no Functional Ability ADLs Independent: dressing, eating, toileting. Needs Assist: bathing. Ambulation: independent IADLs Independent: telephone. Needs Assist: shopping, housework, finances, food prep, transportation, medication admin. Review of Systems Review of Systems Constitutional: Reports: malaise, weakness. Denies: chills, fever. EENTM: Denies: icterus, epistaxis, mouth pain. Cardiovascular: Denies: chest pain, syncope. Respiratory: Denies: cough, short of breath. GI: Reports: see HPI. Genitourinary: Denies: dysuria, hematuria. Musculoskeletal: Denies: muscle stiffness, neck pain. Skin: Denies: jaundice, lesions. Neurological/Psychological: Denies: cognitive dysfunction, tonic-clonic seizures. Hematologic/Endocrine: Denies: bruising, bleeding. Exam & Diagnostic Data Vital Signs and I&O Vital Signs Date Time Temp Pulse Resp B/P Pulse O2 O2 Flow FiO2 Ox Delivery Rate 09/19 1727 98.3 62 18 126/72 97 Room Air 09/19 1503 97.5 82 18 120/73 99 09/19 1319 98.1 76 18 138/71 100 09/19 1113 97.5 74 18 146/71 99 09/19 0921 98.0 110 18 116/79 92 Room Air Intake & Output 09/19 04009/17 0400 Intake Total 1000 Output Total Balance 1000 Intake, IV 1000 Patient 105 lb Weight Physical Exam: Thin, ill-appearing female. Alert and oriented with normal cognition. Skin normal except for poor turgor. No adenopathy. Head and neck normal; no evident thrush. Chest nontender. Heart regular rhythm. Lungs clear. Abdomen is soft and nondistended with normal bowel sounds; no tenderness, mass or organomegaly. Extremities without edema, normal pulses. Results Pertinent Lab Results: Laboratory Tests 09/19 09/19 1239 1018 Chemistry Sodium (137 - 145 mmol/L) 135 L Potassium (3.5 - 5.1 mmol/L) 3.4 L Chloride (98 - 107 mmol/L) 103 Carbon Dioxide (22 - 30 mmol/L) 27 Anion Gap (5 - 16) 6 BUN (7 - 17 mg/dL) 7 Creatinine (0.5 - 1.0 mg/dL) 0.8 Estimated GFR (>60 ml/min) > 60 BUN/Creatinine Ratio (7 - 25 %) 8.8 Glucose (65 - 99 mg/dL) 81 Lactic Acid (0.7 - 2.1 mmol/L) Cancelled 1.4 Calcium (8.4 - 10.2 mg/dL) 9.9 Total Bilirubin (0.2 - 1.3 mg/dL) 1.0 AST (14 - 36 U/L) 27 ALT (9 - 52 U/L) 26 Alkaline Phosphatase (<127 U/L) 139 H Troponin I (< 0.11 ng/ml) < 0.01 Total Protein (6.3 - 8.2 g/dL) 5.9 L Albumin (3.5 - 5.0 g/dL) 2.6 L Globulin (1.9 - 4.2 gm/dL) 3.3 Albumin/Globulin Ratio (1.1 - 2.2 %) 0.8 L Hematology CBC w Diff NO MAN DIFF REQ WBC (4.8 - 10.8 /CUMM) 3.1 L RBC (4.20 - 5.40 /CUMM) 3.04 L Hgb (12.0 - 16.0 G/DL) 8.9 L Hct (37 - 47 %) 26.7 L MCV (81.0 - 99.0 FL) 88.0 MCH (27.0 - 31.0 PG) 29.4 RDW (11.5 - 14.5 %) 21.1 H Plt Count (130 - 400 /CUMM) 276 MPV (7.4 - 10.4 FL) 6.4 L Gran % (42.2 - 75.2 %) 60.4 Lymphocytes % (20.5 - 51.1 %) 30.2 Monocytes % (1.7 - 9.3 %) 8.4 Eosinophils % (0 - 5 %) 0.8 Basophils % (0.0 - 2.0 %) 0.2 Absolute Granulocytes (1.4 - 6.5 /CUMM) 1.8 Absolute Lymphocytes (1.2 - 3.4 /CUMM) 0.9 L Absolute Monocytes (0.10 - 0.60 /CUMM) 0.3 Absolute Eosinophils (0.0 - 0.7 /CUMM) 0 Absolute Basophils (0.0 - 0.2 /CUMM) 0 PUBS MCHC (33.0 - 37.0 G/DL) 33.4 Imaging/Other Studies: CT scan: IMPRESSION: There is new circumferential wall thickening of the mid/distal esophagus, approximately 9 cm in length extending to the gastroesophageal junction with surrounding soft tissue thickening/stranding which is most likely inflammatory/infectious, with esophageal air-fluid level. The colonic wall thickening has significantly improved, with persistent thickening of the ascending colon and a portion of the sigmoid. Similar-appearing complex uterine masses. Stable subcentimeter exophytic left renal lesion. L4 burst fracture with lytic destruction and marked central stenosis. Right upper lobe, middle lobe, and lower lobe nodules have slightly decreased in size. There is a new small area of airspace opacity in the posterolateral aspect of the right upper lobe, abutting the major fissure, which may represent pneumonia. Assessment/Plan Assessment/Recommendations: Metastatic leiomyosarcoma on chemotherapy with 3 weeks of progressive odynophagia, and now near constant lower chest/epigastric discomfort. No relief with sucralfate/PPI therapy. Continued weight loss, inability to tolerate food and liquids. Evidence of dehydration. CT scan suggests esophagitis. Fortunately, there has been no recurrence of diarrhea following treatment of C. difficile associated pseudomembranous colitis. Recommendations * 2% viscous lidocaine by mouth every 2 hours as needed * IV PPI twice a day * Clear liquids as tolerated; nothing by mouth after midnight * EGD tomorrow Consult Acknowledgment - Thank you for your consult request.
[2016-09-19 23:15] VITALS: BP 136/78
[2016-09-20 06:30] VITALS: BP 118/70
--- NOTE | 2016-09-20 07:18 | PN- Housestaff ---
GIANCARLO PERDUE,[facility] 09/20/16 0718: Subjective Follow-up For: Odonophagia Epigastric abdominal pain Lung cancer with bone and lung metastasis Subjective: Patient was seen and examined this morning, vital signs are stable, no overnight events reported by the nurse or the patient. Patient reported frequent burping, didn't eat anything yesterday because she was afraid from getting pain, nothing by mouth this morning for upper endoscopy. Patient offered no other complaint. Patient had upper endoscopy at 2 PM this afternoon, I evaluated her after that, patient was sleeping comfortably on bed, denied any pain. Discussed with her the diet plan and pain management. Review of Systems Constitutional: Reports: see HPI. Objective Last 24 Hrs of Vital Signs/I&O Vital Signs Date Time Temp Pulse Resp B/P Pulse O2 O2 Flow FiO2 Ox Delivery Rate 09/20 1458 98.0 52 20 126/78 100 09/20 0630 98.1 53 18 118/70 97 Room Air 09/19 2315 97.9 57 20 136/78 99 Room Air 09/19 1727 98.3 62 18 126/72 97 Room Air Intake & Output 09/20 1600 05 0800 04/ 0000 Intake Total 535 600 100 Output Total 500 550 Balance 35 600 -450 Intake, IV 525 600 100 Intake, Oral 10 Output, Urine 500 550 Patient 46.72 kg 47.627 kg Weight Physical Exam General Appearance: Alert, Oriented X3, Cooperative, No Acute Distress Skin: No Rashes, No Breakdown, No Significant Lesion HEENT: Atraumatic, PERRLA, EOMI, Mucous Membr. moist/pink Neck: Supple Cardiovascular: Regular Rate, Normal S1, Normal S2, No Murmurs Lungs: Clear to Auscultation, Normal Air Movement Abdomen: Normal Bowel Sounds, Soft, No Tenderness Neurological: Normal Gait, Normal Speech, Strength at 5/5 X4 Ext, Normal Tone, Sensation Intact, Cranial Nerves 3-12 NL, Reflexes 2+ Extremities: No Clubbing, No Cyanosis, No Edema, Normal Pulses Assessment/Plan Assessment: Ms. 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 difficile positive, patient presented to ED with chief complaint of difficulty and painful swallowing for the last 3 weeks. On admission Vital signs Temperature 90.8, pulse 110, blood pressure 116/78, respiratory rate 18 with saturation 92% on room air Labs CBC 3.1, H&H 8.9/26.7, Platelet count 276, sodium 135, potassium 3.4, BUN/ creatinine 7/0.8, glucose 81, calcium 9.9, lactic acid 1.4, AST 27, ALT 26, alkaline phosphatase 159, albumin 2.6, troponin less than 0.[address] chest with out IV contrast, CT abdomen and pelvis with contrast 10/02 There is new circumferential wall thickening of the mid/distal esophagus, approximately 9 cm in length extending to the gastroesophageal junction with surrounding soft tissue thickening/stranding which is most likely inflammatory/infectious, with esophageal air-fluid level. The colonic wall thickening has significantly improved, with persistent thickening of the ascending colon and a portion of the sigmoid. Similar-appearing complex uterine masses. Stable subcentimeter exophytic left renal lesion. L4 burst fracture with lytic destruction and marked central stenosis. Right upper lobe, middle lobe, and lower lobe nodules have slightly decreased in size. There is a new small area of airspace opacity in the posterolateral aspect of the right upper lobe, abutting the major fissure, which may represent pneumonia. Problem list #Uterine leiomyosarcoma stage IV #Metastatic disease #Electrolyte imbalance #Abnormal CBC #Hypothyroidism #Hypertension and hyperlipidemia #Uterine leiomyosarcoma stage IV -Lung and bone metastasis currently on chemotherapy single agent gemcitabine -Elevated alkaline phosphatase mostly due to bone metastasis -Recent onset of odontophagia and dysphagia not responding to PPI or Carafate -CT scan revealed new circumferential wall thickening of the mid/distal esophagus, approximately 9 cm in length extending to the gastroesophageal junction with surrounding soft tissue thickening/stranding which is most likely inflammatory/infectious -Oncology consultation was obtained, thanks for recommendation -GI consultation was obtained, thanks for recommendation -Upper endoscopy revealed severe ulcerative esophagitis with stricture formation. Etiology unclear; the appearance is not classic for fungal or viral infection -We'll start patient on clear liquids and advance as tolerated -We'll continue IV PPI and viscous lidocaine 2% 3 times before meal schedule doses and every 2 hours when necessary -We'll obtain nutrition, PT and OT consultation -Continue D5 half-normal saline 75 mL/h (recent EKG 2016 normal left ventricular ejection fraction, stage I diastolic dysfunction) given poor oral intake -Follow-up pathology report and OLINDA #Electrolyte imbalance -On admission potassium was 3.4-- resolved -Patient received 2 doses of potassium chloride 20 mEq IV #Abnormal CBC -WBC 3.1, absolute neutrophilia count 1.8 -Microcytic anemia, MCV 88, due to chronic disease on chemotherapy #Hypothyroidism -Continue levothyroxine 100 micrograms daily #Hyperlipidemia -Continue pravastatin 40 mg daily #Depression and anxiety -Continue alprazolam 0.25 mg daily as needed -Continue bupropion 100 mg twice a day DVT prophylaxis Lovenox Diet clear liquid, will advance as tolerated Code full Consultation GI, oncology, nutrition, PT, OT Problem List: 1. Dysphagia Pain Ratin Pain Location: Lower esophagus Pain Goal: Pain 4 or less Pain Plan: Xylocaine viscous liquid 3 times before meals and every 2 hours as needed Tomorrow's Labs & Rationales: CBC, CMP LAUREANO PERDUE,DIANNE 09/20/16 1251: Attending MD Review Statement Attending Statement Attending MD Statement: examined this patient, discuss w/resident/PA/HR ADMINISTRATIVE ASSISTANT, agreed w/resident/PA/HR ADMINISTRATIVE ASSISTANT, reviewed EMR data (avail), discussed with nursing, discussed with case mgmt, amended to note Attending Assessment/Plan: Patient seen and examined. Lying comfortably in bed and not in any acute distress. No issues overnight. Denies chest pain. She complains of mild abdominal discomfort. On examination she doesn't have any abdominal tenderness. She is noted to be acutely anemic this morning. No reports of black or bloody stools. No hematemesis. She did receive gentle hydration overnight. Case was discussed with her oncologist. She did not receive chemotherapy last week due to low counts. Last chemotherapy was about 2 weeks ago. She did have a drop in her white cell count a mild drop in platelet counts as well. Recommendations: -She is scheduled for EGD today. We'll follow-up recommendations post procedure. -Begin patient on viscous lidocaine following the procedure before meals -Check stool guaiac. Repeat CBC in a.m. Transfuse to keep hemoglobin levels greater than 7.
[2016-09-20 08:26] LABS: ABSOLUTE BASOPHIL COUNT 0 /CUMM (0.0-0.2); ABSOLUTE EOSINOPHIL COUNT 0.1 /CUMM (0.0-0.7); ABSOLUTE GRANULOCYTE CT 1.1 /CUMM (1.4-6.5); ABSOLUTE MONOCYTE COUNT 0.3 /CUMM (0.10-0.60); EOSINOPHIL % 2.5 % (0-5); RED BLOOD CELL CT 2.47 /CUMM (4.20-5.40)
--- NOTE | 2016-09-20 08:37 | PN- Oncology ---
Subjective Subjective: She feels a little better today. She is NPO for endoscopy today. Review of Systems Constitutional: Denies: chills, fever. Cardiovascular: Denies: chest pain. Gastrointestinal: Reports: abdominal pain. Genitourinary: Denies: dysuria. Neurological/Psychological: Denies: anxiety, ataxia. Immunologic/Allergic: Denies: no symptoms. All Other Systems: Reviewed and Negative Objective Vital Signs and I&Os Vital Signs Date Time Temp Pulse Resp B/P Pulse O2 O2 Flow FiO2 Ox Delivery Rate 09/20 0630 98.1 53 18 118/70 97 Room Air 09/19 2315 97.9 57 20 136/78 99 Room Air 09/19 1727 98.3 62 18 126/72 97 Room Air 09/19 1503 97.5 82 18 120/73 99 09/19 1319 98.1 76 18 138/71 100 09/19 1113 97.5 74 18 146/71 99 09/19 0921 98.0 110 18 116/79 92 Room Air Intake & Output 09/20 1600 09/20 0800 09/20 0000 09/19 1600 09/19 0800 09/19 0000 Intake Total 513 312 9130 Output Total 550 Balance 600 -450 1000 Intake, IV 915 119 0432 Output, Urine 550 Patient 47.627 kg Weight Physical Exam: General Appearance: alert, awake, anxious, comfortable, thin, tearful Head: atraumatic, normal appearance Ears, Nose, Throat: normal pharynx, moist mucus membranes Neck: normal inspection, supple Respiratory: normal breath sounds, chest non-tender, no respiratory distress Cardiovascular: regular rate/rhythm Gastrointestinal: normal bowel sounds, soft, non-tender, no organomegaly Extremities: normal inspection, no edema Neurologic/Psych: alert, oriented x 3 Other Physical Findings: right chest port access and without tenderness Current Medications: Current Medications Sig/Keny Start time Last Medication Dose Route Stop Time Status Admin Acetaminophen 325 MG Q6 PRN 09/19 1345 AC PO Acetaminophen 1,000 MG Q6P PRN 09/19 1345 AC IV Albuterol Sulfate 2 PUF Q4-6 PRN PRN 09/19 1400 AC INH Alprazolam 0.25 MG DAILY NEEDED PRN 09/19 1400 AC 09/19 PO 09/26 1359 1607 Bupropion HCl 100 MG BID 09/19 2200 AC PO Dextrose/Sodium 1,000 ML Q13H 09/19 1400 AC 09/20 Chloride IV 0616 Dronabinol 2.5 MG EVERY 6HRS- NEED.. 09/19 1400 AC PO Enoxaparin Sodium 0 .STK-MED ONE 09/19 1430 DC SC Enoxaparin Sodium 40 MG DAILY 09/19 1338 AC 09/19 SC 1430 Levothyroxine Sodium 0.1 MG DAILY 09/20 1000 AC PO Lidocaine 15 ML Q2 HRS NEEDED PRN 09/19 1945 AC PO Lidocaine 15 ML TID 09/19 1604 DC 09/19 PO 1813 Morphine Sulfate 2 MG Q4P PRN 09/19 1345 AC IV Omeprazole 40 MG DAILY AC 09/20 0700 CAN PO Ondansetron HCl 4 MG Q6P PRN 09/19 1400 DC IV Ondansetron HCl 0 .STK-MED ONE 09/19 1019 DC .ROUTE Ondansetron HCl 4 MG ONCE ONE 09/19 0945 DC 09/19 IV 09/19 0946 1020 Pantoprazole Sodium 40 MG BID 09/19 2200 AC 09/19 IV 2110 Pantoprazole Sodium 0 .STK-MED ONE 09/19 1019 DC IV Pantoprazole Sodium 40 MG ONCE ONE 09/19 0945 DC 09/19 IV 09/19 0946 1020 Potassium Chloride 20 MEQ DAILY 09/20 1000 AC PO Potassium Chloride 20 MEQ Q1H 09/19 1830 DC 09/19 IV 09/19 1931 2103 Potassium Chloride 40 MEQ ONCE ONE 09/19 1515 DC PO 09/19 1516 Pravastatin Sodium 40 MG DAILY 09/20 1000 AC PO Sodium Chloride 1,000 ML ONCE ONE 09/19 0945 DC 09/19 IV 09/19 1624 1020 Sucralfate 1 GM 4 TIMES/DAY 09/19 1400 AC 09/19 PO 1813 Trimethobenzamide HCl 200 MG TID PRN 09/19 1515 AC IM Results Last 24 Hours of Lab Results: Laboratory Tests 09/20 09/19 09/19 0620 2150 1239 Chemistry Sodium (137 - 145 mmol/L) 131 L Potassium (3.5 - 5.1 mmol/L) 3.9 Chloride (98 - 107 mmol/L) 104 Carbon Dioxide (22 - 30 mmol/L) 27 Anion Gap (5 - 16) 0 L BUN (7 - 17 mg/dL) 7 Creatinine (0.5 - 1.0 mg/dL) 0.8 Estimated GFR (>60 ml/min) > 60 BUN/Creatinine Ratio (7 - 25 %) 8.8 Lactic Acid Cancelled Hematology CBC w Diff Pending WBC Pending RBC Pending Hgb Pending Hct Pending MCV Pending MCH Pending RDW Pending Plt Count Pending MPV Pending PUBS MCHC Pending Urines Urine Color (YEL,AMB,STR) STRAW Urine Clarity (CLEAR) CLEAR Urine pH (5.0 - 8.0) 7.5 Ur Specific [place] (1.001 - 1.035) 1.010 Urine Protein (NEG,<30 MG/DL) NEG Urine Ketones (NEG) TRACE H Urine Nitrite (NEG) NEG Urine Bilirubin (NEG) NEG Urine Urobilinogen (0.1 - 1.0 EU/dl) 0.2 Ur Leukocyte Esterase (NEG) NEG Ur Microscopic EXAM NOT REQUIRED Urine Hemoglobin (NEG) NEG Urine Glucose (N MG/DL) NEG 09/19 1018 Chemistry Sodium (137 - 145 mmol/L) 135 L Potassium (3.5 - 5.1 mmol/L) 3.4 L Chloride (98 - 107 mmol/L) 103 Carbon Dioxide (22 - 30 mmol/L) 27 Anion Gap (5 - 16) 6 BUN (7 - 17 mg/dL) 7 Creatinine (0.5 - 1.0 mg/dL) 0.8 Estimated GFR (>60 ml/min) > 60 BUN/Creatinine Ratio (7 - 25 %) 8.8 Glucose (65 - 99 mg/dL) 81 Lactic Acid (0.7 - 2.1 mmol/L) 1.4 Calcium (8.4 - 10.2 mg/dL) 9.9 Total Bilirubin (0.2 - 1.3 mg/dL) 1.0 AST (14 - 36 U/L) 27 ALT (9 - 52 U/L) 26 Alkaline Phosphatase (<127 U/L) 139 H Troponin I (< 0.11 ng/ml) < 0.01 Total Protein (6.3 - 8.2 g/dL) 5.9 L Albumin (3.5 - 5.0 g/dL) 2.6 L Globulin (1.9 - 4.2 gm/dL) 3.3 Albumin/Globulin Ratio (1.1 - 2.2 %) 0.8 L Hematology CBC w Diff NO MAN DIFF REQ WBC (4.8 - 10.8 /CUMM) 3.1 L RBC (4.20 - 5.40 /CUMM) 3.04 L Hgb (12.0 - 16.0 G/DL) 8.9 L Hct (37 - 47 %) 26.7 L MCV (81.0 - 99.0 FL) 88.0 MCH (27.0 - 31.0 PG) 29.4 RDW (11.5 - 14.5 %) 21.1 H Plt Count (130 - 400 /CUMM) 276 MPV (7.4 - 10.4 FL) 6.4 L Gran % (42.2 - 75.2 %) 60.4 Lymphocytes % (20.5 - 51.1 %) 30.2 Monocytes % (1.7 - 9.3 %) 8.4 Eosinophils % (0 - 5 %) 0.8 Basophils % (0.0 - 2.0 %) 0.2 Absolute Granulocytes (1.4 - 6.5 /CUMM) 1.8 Absolute Lymphocytes (1.2 - 3.4 /CUMM) 0.9 L Absolute Monocytes (0.10 - 0.60 /CUMM) 0.3 Absolute Eosinophils (0.0 - 0.7 /CUMM) 0 Absolute Basophils (0.0 - 0.2 /CUMM) 0 PUBS MCHC (33.0 - 37.0 G/DL) 33.4 Assessment/Plan Assessment/Recommendations: Ms. 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 She has been having symptoms for a few weeks without improvement with Carafate and pantoprazole. Restaging scan with CT chest, abdomen, and pelvis demonstrated stable uterine mass and slightly improved lung nodules. There is an area in the RUL which is concerning for pneumonia versus neoplastic. It is unlikely neoplastic given the stability/improvement of the other lesions. She seems to have some response to therapy. There was thickening of the distal esophagus. This is likely inflammatory versus infectious. She was seen by Dr. Lee and plan for EGD today. She otherwise is doing better. She will need nutrition evaluation. PT/OT evaluation may be useful for her. Recommendations: 1. PT/OT evaluation 2. Follow up on EGD results Please call [phone] with any questions or concerns. Problem List: 1. Malnutrition 2. Abdominal pain 3. Uterine leiomyosarcoma
[2016-09-20 09:30] LABS: ABSOLUTE LYMPH COUNT 1.2 /CUMM (1.2-3.4); BASOPHIL % 0.6 % (0.0-2.0); MEAN CORPUSCULAR HGB 29.9 PG (27.0-31.0); MEAN CORPUSCULAR HGB CONC 33.4 G/DL (33.0-37.0); MEAN CORPUSCULAR VOLUME 89.5 FL (81.0-99.0); MEAN PLATELET VOLUME 6.4 FL (7.4-10.4); PLATELET COUNT 233 /CUMM (130-400); RBC DISTRIBUTION WIDTH 22.1 % (11.5-14.5); WHITE BLOOD CELL COUNT 2.8 /CUMM (4.8-10.8)
[2016-09-20 09:46] LABS: HEMATOCRIT 22.1 % (37-47)
--- NOTE | 2016-09-20 14:49 | Proc Note Endoscopy ---
Endoscopy Procedure Procedure Date: 09/20/16 Procedure Type: EGD w/biopsy Brigadier: Claus Lee M.D. ASA Classification: III Indications: Odynophagia Instrument: diagnostic gastroscope, pediatric gastroscope Meds Received: MAC Patient's Tolerance: good Complications: none Extent Reached: ESOPHAGUS Procedure: The patient signed informed consent, and was medicated. Hurricaine pharyngeal spray was administered. Pulse oximetry, blood pressure and cardiac monitoring were performed continuously throughout the procedure. The Olympus high- definition gastroscope was inserted into the mouth and advanced to the midesophagus. Findings: Hypopharynx and larynx appeared normal. There was no thrush. The proximal esophagus was normal. There were no erosions, ulcers, vesicles, or exudate. Starting at 27 cm there was confluent ulceration of the esophagus with overlying exudate. There was a stricture beginning at 30 cm, with resistance to passage of both adult and pediatric gastroscope. Because of sloughing of the exudate/mucosa with attempts at passage, the endoscopes were not advanced beyond approximately 31 cm. Biopsies were obtained from the proximal edges of the ulceration, and from mid ulceration. Brushings were obtained for potassium hydroxide preparation. The brush was seen to be easily advanced through the GE junction. Impression: * Severe ulcerative esophagitis with stricture formation. Etiology unclear; the appearance is not classic for fungal or viral infection. Recommendations: * Await pathology and OLINDA prep. * If tolerates clear liquids, advance to polymeric diet (consult with registered dietitian). * Continue PPI, viscous lidocaine (may give liberally, not just 3 times a day). CC: NAKIA LARES,PHU Vargas; MARISOL PERDUE,IVA
[2016-09-20 14:58] VITALS: BP 126/78
[2016-09-20 22:28] VITALS: BP 118/68
--- NOTE | 2016-09-20 23:27 | NUR ---
LATE ENTRY FOR 1900: THIS NURSE ENTERED ROOM, PT BEGAN CRYING STATING "I DONT KNOW WHATS GOING ON WITH ME, NO DR CAME TO EXPLAIN THE RESULTS, IM SCARED" EMOTIONAL SUPPORT GIVEN TO PT, CALL PLACED TO NURSING TECHNICIAN TO COME SPEAK WITH PT REGARDING EGD RESULTS FROM TODAY.
--- NOTE | 2016-09-20 23:28 | NUR ---
FOLLOW UP NURSING NOTE- SCREEN PRINTING LOADER UNLOADER CAME TO SPEAK WITH PT, PT STATES SHE FEELS BETTER AFTER GOING OVER THE RESULTS OF THE EGD WITH SCREEN PRINTING LOADER UNLOADER. MEDICATED WITH LIDOCAINE PO PRIOR TO DINNER TONIGHT, PT BEGAN CLEAR LIQ DIET FOR DINNER, ABLE TO TAKE IN 100% CHICKEN BROTH, STATED MINOR PAIN WHILE DRINKING THE BROTH, BUT DENIES NAUSEA OR VOMITING. MEDICATED IN BEGINNING OF SHIFT WITH IV MORPHINE ORDERED FOR THROAT AND ABDOMINAL PAIN WITH STATED RELIEF. PT EDUCATED ON SCHEDULE FOR PAIN MEDS AND LIDOCAINE AND ENCOURAGED TO CALL IF NEEDED.
--- NOTE | 2016-09-21 07:18 | PN- Housestaff ---
GIANCARLO PERDUE,[facility] 09/21/16 0717: Subjective Follow-up For: Odonophagia Epigastric abdominal pain Lung cancer with bone and lung metastasis Subjective: Patient was seen and examined this morning, she reported pain in esophagus early this morning, at the moment denied pain. She tried broth last night and had some pain but it was tolerable, she requested pudding and Magic cup. Patient denied any abdominal pain, nausea vomiting, diarrhea or constipation. Last bowel movement was 3 days ago. Review of Systems Constitutional: Reports: see HPI. Objective Last 24 Hrs of Vital Signs/I&O Vital Signs Date Time Temp Pulse Resp B/P Pulse O2 O2 Flow FiO2 Ox Delivery Rate 09/21 0739 97.9 54 17 112/68 98 Room Air 09/20 2228 98.1 60 18 118/68 99 09/20 1458 98.0 52 20 126/78 100 Intake & Output 09/21 1600 09/21 0800 09/21 0000 Intake Total 600 900 Output Total 950 Balance -350 900 Intake, IV 600 600 Intake, Oral 0 300 Output, Urine 950 Physical Exam General Appearance: Alert, Oriented X3, Cooperative, No Acute Distress Skin: No Rashes, No Breakdown, No Significant Lesion HEENT: Atraumatic, PERRLA, EOMI, Mucous Membr. moist/pink Neck: Supple, No JVD Cardiovascular: Regular Rate, Normal S1, Normal S2, No Murmurs Lungs: Clear to Auscultation, Normal Air Movement, portal line is patent no signs of inflammation , Abdomen: Normal Bowel Sounds, Soft, No Tenderness Neurological: Normal Gait, Normal Speech, Strength at 5/5 X4 Ext, Normal Tone, Sensation Intact, Cranial Nerves 3-12 NL, Reflexes 2+ Extremities: No Clubbing, No Cyanosis, No Edema, Normal Pulses Assessment/Plan Assessment: Ms. 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 difficile positive, patient presented to ED with chief complaint of difficulty and painful swallowing for the last [address] chest with out IV contrast, CT abdomen and pelvis with contrast 10/02 There is new circumferential wall thickening of the mid/distal esophagus, approximately 9 cm in length extending to the gastroesophageal junction with surrounding soft tissue thickening/stranding which is most likely inflammatory/infectious, with esophageal air-fluid level. The colonic wall thickening has significantly improved, with persistent thickening of the ascending colon and a portion of the sigmoid. Similar-appearing complex uterine masses. Stable subcentimeter exophytic left renal lesion. L4 burst fracture with lytic destruction and marked central stenosis. Right upper lobe, middle lobe, and lower lobe nodules have slightly decreased in size. There is a new small area of airspace opacity in the posterolateral aspect of the right upper lobe, abutting the major fissure, which may represent pneumonia. Problem list #Uterine leiomyosarcoma stage IV #Metastatic disease #Electrolyte imbalance #Abnormal CBC #Hypothyroidism #Hypertension and hyperlipidemia #Uterine leiomyosarcoma stage IV -Lung and bone metastasis currently on chemotherapy single agent gemcitabine -Elevated alkaline phosphatase mostly due to bone metastasis -Recent onset of odontophagia and dysphagia not responding to PPI or Carafate -CT scan revealed new circumferential wall thickening of the mid/distal esophagus, approximately 9 cm in length extending to the gastroesophageal junction with surrounding soft tissue thickening/stranding which is most likely inflammatory/infectious -Oncology consultation was obtained, thanks for recommendation -GI consultation was obtained, thanks for recommendation -Upper endoscopy revealed severe ulcerative esophagitis with stricture formation. Etiology unclear; the appearance is not classic for fungal or viral infection -Patient tolerated clear liquids overnight well and requested some pudding, diet was advanced to full liquid, patient couldn't tolerate the diet and was switched back to clear liquids -G I recommendation to avoid cereal, yogurt and pudding at this time as the patient has severe esophagitis with stricture and it would be difficult for her to eat solids including thick liquids -Continue IV PPI and viscous lidocaine 2% 3 times before meal schedule doses and every 2 hours when necessary -Nutrition, PT and OT consultation will obtained -Switch IV fluid to D5 normal saline 75 mL/h given hyponatremia 129 (recent EKG 2015 normal left ventricular ejection fraction, stage I diastolic dysfunction) given poor oral intake -OLINDA didn't show any fungal infection -Follow pathology report #Electrolyte imbalance -Hyponatremia, will replete with 3 doses potassium chloride 10 mEq -Hyponatremia, will switch IV fluid to D5 normal saline -Follow up BMP tomorrow #Abnormal CBC -WBC 3.1, absolute neutrophilia count 1.8 -Microcytic anemia, MCV 88, due to chronic disease on chemotherapy #Hypothyroidism -Continue levothyroxine 100 micrograms daily #Hyperlipidemia -Continue pravastatin 40 mg daily #Depression and anxiety -Continue alprazolam 0.25 mg daily as needed -Continue bupropion 100 mg twice a day DVT prophylaxis Lovenox Diet clear liquid Code full Consultation GI, oncology, nutrition, PT, OT Problem List: 1. Dysphagia Pain Ratin Pain Location: Esophageal pain, epigastric pain Alt Method for Pain Treatment: Other(free text) Pain Goal: Pain 4 or less Pain Plan: Xylocaine 2% solution 3 times a day before meals and every 2 as needed Tomorrow's Labs & Rationales: CBC and setting of anemia BMP and magnesium in setting of hyponatremia and hypokalemia DIANNE TINSLEY MD 09/21/16 1506: Attending MD Review Statement Attending Statement Attending MD Statement: examined this patient, discuss w/resident/PA/RANGE OPERATOR, agreed w/resident/PA/RANGE OPERATOR, reviewed EMR data (avail), discussed with nursing, discussed with case mgmt, amended to note Attending Assessment/Plan: Patient seen and examined. Very lethargic. Complains of retrosternal pain particularly when eating. Despite use of viscous lidocaine she is unable to tolerate full liquid diet. She is currently requesting to return to work clear liquid diet. She denies shortness of breath. She denies cough. She is otherwise afebrile and hemodynamically stable. On examination lungs are clear bilaterally. Abdomen is soft and nontender. Recommendations: -Place on clear liquid diet. -Continue viscous lidocaine every 2 hours as needed and before meals. -Mobilize patient as tolerated. -Follow-up with the GI service. If the patient continues to do poorly with oral intake consideration may need to be given to alternate means of nutrition. -Hyponatremia is likely secondary to volume depletion due to poor oral intake. Change fluids to D5 normal saline until oral intake improves. -Repeat serum chemistry tomorrow. -Hemoglobin level has improved without intervention. Initial low labs were likely due to hemodilution.
[2016-09-21 07:39] VITALS: BP 112/68
[2016-09-21 08:21] LABS: ABSOLUTE BASOPHIL COUNT 0 /CUMM (0.0-0.2); ABSOLUTE EOSINOPHIL COUNT 0.1 /CUMM (0.0-0.7); ABSOLUTE LYMPH COUNT 1.2 /CUMM (1.2-3.4); ABSOLUTE MONOCYTE COUNT 0.2 /CUMM (0.10-0.60); BASOPHIL % 0.5 % (0.0-2.0); EOSINOPHIL % 3.5 % (0-5); GRANULOCYTE % 38.9 % (42.2-75.2); HEMATOCRIT 24.6 % (37-47); MEAN CORPUSCULAR HGB 29.5 PG (27.0-31.0); MEAN CORPUSCULAR HGB CONC 32.7 G/DL (33.0-37.0); MEAN CORPUSCULAR VOLUME 90.3 FL (81.0-99.0); MEAN PLATELET VOLUME 6.5 FL (7.4-10.4); PLATELET COUNT 267 /CUMM (130-400); RBC DISTRIBUTION WIDTH 22.6 % (11.5-14.5); RED BLOOD CELL CT 2.73 /CUMM (4.20-5.40); WHITE BLOOD CELL COUNT 2.6 /CUMM (4.8-10.8)
--- NOTE | 2016-09-21 09:38 | PN- Oncology ---
Subjective Subjective: She underwent EGD yesterday. She has some sore throat this morning. Pain is still in the lower esophagus/epigastric area. She is trying to have more oral intake. Review of Systems: Constitutional: Denies: chills, fever. HEENT: Reports: sore throat Cardiovascular: Denies: chest pain. Gastrointestinal: Reports: abdominal pain. Genitourinary: Denies: dysuria. Neurological/Psychological: Denies: anxiety, ataxia. Immunologic/Allergic: Denies: no symptoms. All Other Systems: Reviewed and Negative Objective Vital Signs and I&Os Vital Signs Date Time Temp Pulse Resp B/P Pulse O2 O2 Flow FiO2 Ox Delivery Rate 09/21 0739 97.9 54 17 112/68 98 Room Air 09/20 2228 98.1 60 18 118/68 99 09/20 1458 98.0 52 20 126/78 100 Intake & Output 09/21 1600 09/21 0800 09/21 0000 09/20 1600 09/20 0800 09/20 0000 Intake Total 600 900 535 600 100 Output Total 950 500 550 Balance -350 900 35 600 -450 Intake, IV 600 600 525 600 100 Intake, Oral 0 300 10 Output, Urine 950 500 550 Patient 46.72 kg 47.627 kg Weight Physical Exam: General Appearance: alert, awake, anxious, comfortable, thin, tearful Head: atraumatic, normal appearance Ears, Nose, Throat: normal pharynx, moist mucus membranes Neck: normal inspection, supple Respiratory: normal breath sounds, chest non-tender, no respiratory distress Cardiovascular: regular rate/rhythm Gastrointestinal: normal bowel sounds, soft, non-tender, no organomegaly Extremities: normal inspection, no edema Neurologic/Psych: alert, oriented x 3 Other Physical Findings: right chest port access and without tenderness Current Medications: Current Medications Sig/Keny Start time Last Medication Dose Route Stop Time Status Admin Acetaminophen 325 MG Q6 PRN 09/19 1345 AC PO Acetaminophen 1,000 MG Q6P PRN 09/19 1345 AC 09/21 IV 0859 Albuterol Sulfate 2 PUF Q4-6 PRN PRN 09/19 1400 AC INH Alprazolam 0.25 MG DAILY NEEDED PRN 09/19 1400 AC 09/19 PO 09/26 1359 1607 Benzocaine 1 CAYLA .STK-MED ONE 09/20 1508 [facility] 09/20 1509 Bupropion HCl 100 MG BID 09/19 2200 AC PO Chlorhexidine 1 GM .STK-MED ONE 09/20 1508 DC Gluconate TOP 09/20 1509 Dextrose/Sodium 1,000 ML Q13H 09/19 1400 AC 09/20 Chloride IV 2102 Dronabinol 2.5 MG EVERY 6HRS- NEED.. 09/19 1400 AC PO Enoxaparin Sodium 40 MG DAILY 09/19 1338 AC 09/21 SC 0900 Levothyroxine Sodium 0.1 MG DAILY 09/20 1000 AC 09/20 PO 0922 Lidocaine 15 ML Q2 HRS NEEDED PRN 09/20 1630 AC 09/21 PO 0826 Lidocaine 2 CAYLA .STK-MED ONE 09/20 1508 DC TOP 09/20 1509 Lidocaine 15 ML TID 09/20 1000 AC 09/20 PO 1745 Lidocaine 15 ML Q2 HRS NEEDED PRN 09/19 1945 DC PO Morphine Sulfate 2 MG Q4P PRN 09/19 1345 AC 09/21 IV 0613 Pantoprazole Sodium 40 MG BID 09/19 2200 AC 09/21 IV 0859 Patient Medication 1 ED .STK-MED ONE 09/20 1333 DC Teaching ED 09/20 1334 Potassium Chloride 20 MEQ DAILY 09/20 1000 AC PO Pravastatin Sodium 40 MG DAILY 09/20 1000 AC PO Sucralfate 1 GM 4 TIMES/DAY 09/19 1400 AC 09/20 PO 1745 Trimethobenzamide HCl 200 MG TID PRN 09/19 1515 AC IM Results Last 24 Hours of Lab Results: Laboratory Tests 09/21 0619 Chemistry Sodium (137 - 145 mmol/L) 129 L Potassium (3.5 - 5.1 mmol/L) 3.4 L Chloride (98 - 107 mmol/L) 104 Carbon Dioxide (22 - 30 mmol/L) 26 Anion Gap (5 - 16) -1 L BUN (7 - 17 mg/dL) 4 L Creatinine (0.5 - 1.0 mg/dL) 0.8 Estimated GFR (>60 ml/min) > 60 BUN/Creatinine Ratio (7 - 25 %) 5.0 L Hematology CBC w Diff NO MAN DIFF REQ WBC (4.8 - 10.8 /CUMM) 2.6 L RBC (4.20 - 5.40 /CUMM) 2.73 L Hgb (12.0 - 16.0 G/DL) 8.1 L Hct (37 - 47 %) 24.6 L MCV (81.0 - 99.0 FL) 90.3 MCH (27.0 - 31.0 PG) 29.5 RDW (11.5 - 14.5 %) 22.6 H Plt Count (130 - 400 /CUMM) 267 MPV (7.4 - 10.4 FL) 6.5 L Gran % (42.2 - 75.2 %) 38.9 L Lymphocytes % (20.5 - 51.1 %) 47.7 Monocytes % (1.7 - 9.3 %) 9.4 H Eosinophils % (0 - 5 %) 3.5 Basophils % (0.0 - 2.0 %) 0.5 Absolute Granulocytes (1.4 - 6.5 /CUMM) 1.0 L Absolute Lymphocytes (1.2 - 3.4 /CUMM) 1.2 Absolute Monocytes (0.10 - 0.60 /CUMM) 0.2 Absolute Eosinophils (0.0 - 0.7 /CUMM) 0.1 Absolute Basophils (0.0 - 0.2 /CUMM) 0 PUBS MCHC (33.0 - 37.0 G/DL) 32.7 L Assessment/Plan Assessment/Recommendations: Ms. 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 She has been having symptoms for a few weeks without improvement with Carafate and pantoprazole. Restaging scan with CT chest, abdomen, and pelvis demonstrated stable uterine mass and slightly improved lung nodules. There is an area in the RUL which is concerning for pneumonia versus neoplastic. EGD demonstrated severe ulcerative esophagitis with stricture formation. Etiology unclear. OLINDA prep is negative. Pathology is pending. She will continue on PPI and viscous lidocaine. She is trying to take in more oral intake now. Recommendations: 1. Follow up pathology 2. Continue PPI 3. Continue viscous lidocarine 4. Nutrition/Dietitian evaluation Please call [phone] with any questions or concerns. Problem List: 1. Dysphagia 2. Uterine leiomyosarcoma
--- NOTE | 2016-09-21 11:57 | NUR ---
OCCUPATIONAL THERAPY NOTE: ATTEMPTED TO SEE PT TODAY. PT VERY LETHARGIC, SLEEPING AND NAUSEOUS. PT WAS NOT APPROPRAITE FOR OT EVAL TODAY. OT WILL F/U TOMORROW IF APPROPRIATE.
[2016-09-21 14:08] VITALS: BP 110/64
[2016-09-21 23:49] VITALS: BP 126/74
[2016-09-22 07:28] VITALS: BP 108/66
[2016-09-22 08:05] LABS: ABSOLUTE BASOPHIL COUNT 0 /CUMM (0.0-0.2); ABSOLUTE EOSINOPHIL COUNT 0.1 /CUMM (0.0-0.7); ABSOLUTE GRANULOCYTE CT 0.9 /CUMM (1.4-6.5); ABSOLUTE LYMPH COUNT 1.1 /CUMM (1.2-3.4); ABSOLUTE MONOCYTE COUNT 0.3 /CUMM (0.10-0.60); BASOPHIL % 0.6 % (0.0-2.0); EOSINOPHIL % 4.2 % (0-5); GRANULOCYTE % 38.7 % (42.2-75.2); HEMATOCRIT 23.9 % (37-47); MEAN CORPUSCULAR HGB 29.3 PG (27.0-31.0); MEAN CORPUSCULAR HGB CONC 32.5 G/DL (33.0-37.0); MEAN CORPUSCULAR VOLUME 90.3 FL (81.0-99.0); MEAN PLATELET VOLUME 6.8 FL (7.4-10.4); PLATELET COUNT 284 /CUMM (130-400); RBC DISTRIBUTION WIDTH 22.8 % (11.5-14.5); RED BLOOD CELL CT 2.64 /CUMM (4.20-5.40); WHITE BLOOD CELL COUNT 2.4 /CUMM (4.8-10.8)
--- NOTE | 2016-09-22 08:53 | PN- Housestaff ---
GIANCARLO PERDUE,[facility] 09/22/16 0852: Subjective Follow-up For: Odonophagia Epigastric abdominal pain Lung cancer with bone and lung metastasis Subjective: Patient was seen and examined this morning, vital signs are stable, no overnight events reported by the nurse or the patient. Patient denied any oral intake yesterday because of pain, this morning she denied any pain so far, will try to eat her breakfast clear liquid diet, nausea on and off, denied vomiting but had some spitting because of the pain after eating, no bowel movement since admission last 09/18/16 Nurse reported that the patient is unable to take any by mouth medication. Review of Systems Constitutional: Reports: see HPI. Objective Last 24 Hrs of Vital Signs/I&O Vital Signs Date Time Temp Pulse Resp B/P Pulse O2 O2 Flow FiO2 Ox Delivery Rate 09/22 0728 98.0 50 20 108/66 98 Room Air 09/21 2349 97.8 63 18 126/74 97 Room Air 09/21 1408 97.9 54 20 110/64 99 Intake & Output 09/22 1600 09/22 0800 09/22 0000 Intake Total 600 600 Output Total Balance 600 600 Intake, IV 600 600 Intake, Oral 0 0 Physical Exam General Appearance: Alert, Oriented X3, Cooperative, No Acute Distress Skin: No Rashes, No Breakdown, No Significant Lesion HEENT: Atraumatic, PERRLA, EOMI, Mucous Membr. moist/pink Neck: Supple, No JVD Cardiovascular: Regular Rate, Normal S1, Normal S2, No Murmurs Lungs: Clear to Auscultation, Normal Air Movement Abdomen: Normal Bowel Sounds, Soft, No Tenderness Neurological: Normal Gait, Normal Speech, Strength at 5/5 X4 Ext, Normal Tone, Sensation Intact, Cranial Nerves 3-12 NL, Reflexes 2+ Extremities: No Clubbing, No Cyanosis, No Edema, Normal Pulses Assessment/Plan Assessment: Ms. 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 difficile positive, patient presented to ED with chief complaint of difficulty and painful swallowing for the last [address] chest with out IV contrast, CT abdomen and pelvis with contrast 10/02 There is new circumferential wall thickening of the mid/distal esophagus, approximately 9 cm in length extending to the gastroesophageal junction with surrounding soft tissue thickening/stranding which is most likely inflammatory/infectious, with esophageal air-fluid level. The colonic wall thickening has significantly improved, with persistent thickening of the ascending colon and a portion of the sigmoid. Similar-appearing complex uterine masses. Stable subcentimeter exophytic left renal lesion. L4 burst fracture with lytic destruction and marked central stenosis. Right upper lobe, middle lobe, and lower lobe nodules have slightly decreased in size. There is a new small area of airspace opacity in the posterolateral aspect of the right upper lobe, abutting the major fissure, which may represent pneumonia. Problem list #Uterine leiomyosarcoma stage IV #Metastatic disease #Electrolyte imbalance #Abnormal CBC #Hypothyroidism #Hypertension and hyperlipidemia #Uterine leiomyosarcoma stage IV -Lung and bone metastasis currently on chemotherapy single agent gemcitabine -Elevated alkaline phosphatase mostly due to bone metastasis -Recent onset of odontophagia and dysphagia not responding to PPI or Carafate -CT scan revealed new circumferential wall thickening of the mid/distal esophagus, approximately 9 cm in length extending to the gastroesophageal junction with surrounding soft tissue thickening/stranding which is most likely inflammatory/infectious -Oncology consultation was obtained, thanks for recommendation -GI consultation was obtained, thanks for recommendation -Upper endoscopy revealed severe ulcerative esophagitis with stricture formation. Etiology unclear; the appearance is not classic for fungal or viral infection -We will continue clear liquid diet for now and evaluate tolerance -G I recommendation to avoid cereal, yogurt and pudding at this time as the patient has severe esophagitis with stricture and it would be difficult for her to eat solids including thick liquids -Continue IV PPI and viscous lidocaine 2% 3 times before meal schedule doses and every 2 hours when necessary -Nutrition, PT and OT consultation will obtained -Continue D5 normal saline 75 mg (recent EKG 2015 normal left ventricular ejection fraction, stage I diastolic dysfunction) given poor oral intake -OLINDA didn't show any fungal infection -Follow pathology report #Electrolyte imbalance -Hyponatremia, improved 133<129 -Hypokalemia, and hypomagnesemia replete with 2 doses of 10 MEq KCL and magnesium sulfate IV -Repeat BMP and replete as needed #Abnormal CBC -WBC 2.4, absolute neutrophilia count 0.9 -Microcytic anemia, MCV 88, due to chronic disease on chemotherapy #Hypothyroidism -Patient is unable to take any oral medication -We will switch her levothyroxine to IV 50 g daily #Hyperlipidemia -Continue pravastatin 40 mg daily #Depression and anxiety -Continue alprazolam 0.25 mg daily as needed -Continue bupropion 100 mg twice a day DVT prophylaxis Lovenox Diet clear liquid Code full Consultation GI, oncology, nutrition, PT, OT Problem List: 1. Dysphagia Pain Ratin Pain Location: Epigastric pain Pain Goal: Pain 4 or less Pain Plan: Xylocaine viscous solution 2% 3 times before meals and every 2 hours as needed Tomorrow's Labs & Rationales: PMB DIANNE TINSLEY MD 09/22/16 0928: Attending MD Review Statement Attending Statement Attending MD Statement: examined this patient, discuss w/resident/PA/[employer] MECHANIC, agreed w/resident/PA/[employer] B[employer] MECHANIC, reviewed EMR data (avail), discussed with nursing, discussed with case mgmt, amended to note Attending Assessment/Plan: Patient seen and examined. Lying in bed and not in acute distress. She reports that chest discomfort has improved today. She remains reluctant to take the viscous lidocaine. Her oral intake has been minimal at best. I have discussed options with her which include increasing oral intake versus placement of a feeding tube. She wants to attempt clear liquid diet. Will monitor her through the weekend. If she is more able to advance her diet reasonably will follow-up with the gastroenterology/interventional radiology service for placement of a PEG tube. Her sodium level has improved. We'll continue IV hydration while we attempt to advance her feedings. Her hemoglobin levels continue to fluctuate. There is no evidence of gross bleeding. We'll monitor her hemoglobin level every other day.
--- NOTE | 2016-09-22 09:01 | PN- Oncology ---
Subjective Subjective: She is trying to take in more oral intake. She could not tolerate full liquid and request to go back on clear. She has esophageal pain and epigastric pain. Review of Systems: Constitutional: Denies: chills, fever. HEENT: Reports: sore throat Cardiovascular: Denies: chest pain. Gastrointestinal: Reports: abdominal pain. Genitourinary: Denies: dysuria. Neurological/Psychological: Denies: anxiety, ataxia. Immunologic/Allergic: Denies: no symptoms. All Other Systems: Reviewed and Negative Objective Vital Signs and I&Os Vital Signs Date Time Temp Pulse Resp B/P Pulse O2 O2 Flow FiO2 Ox Delivery Rate 09/23 727 98.0 50 20 108/66 98 Room Air 09/21 2349 97.8 63 18 126/74 97 Room Air 09/21 1408 97.9 54 20 110/64 99 Intake & Output 09/22 1600 09/22 0800 09/22 0000 09/21 1600 09/21 0800 09/21 0000 Intake Total 600 600 535 600 900 Output Total 1350 950 Balance 600 600 -815 -350 900 Intake, IV 600 600 525 600 600 Intake, Oral 0 0 10 0 300 Output, Urine 1350 950 Physical Exam: General Appearance: alert, awake, anxious, comfortable, thin, tearful Head: atraumatic, normal appearance Ears, Nose, Throat: normal pharynx, moist mucus membranes Neck: normal inspection, supple Respiratory: normal breath sounds, chest non-tender, no respiratory distress Cardiovascular: regular rate/rhythm Gastrointestinal: normal bowel sounds, soft, non-tender, no organomegaly Extremities: normal inspection, no edema Neurologic/Psych: alert, oriented x 3 Other Physical Findings: right chest port access and without tenderness Current Medications: Current Medications Sig/Keny Start time Last Medication Dose Route Stop Time Status Admin Acetaminophen 325 MG Q6 PRN 09/19 1345 AC PO Acetaminophen 1,000 MG Q6P PRN 09/19 1345 AC 09/21 IV 0859 Albuterol Sulfate 2 PUF Q4-6 PRN PRN 09/19 1400 AC INH Alprazolam 0.25 MG DAILY NEEDED PRN 09/19 1400 AC 09/19 PO 09/26 1359 1607 Bupropion HCl 100 MG BID 09/19 2200 AC PO Dextrose/Sodium 1,000 ML Q13H 09/21 1200 AC 09/22 Chloride IV 0040 Dextrose/Sodium 1,000 ML Q13H 09/19 1400 DC 09/21 Chloride IV 1048 Dronabinol 2.5 MG EVERY 6HRS- NEED.. 09/19 1400 AC PO Enoxaparin Sodium 40 MG DAILY 09/19 1338 AC 09/21 SC 0900 Levothyroxine Sodium 0.1 MG DAILY 09/20 1000 AC 09/20 PO 0922 Lidocaine 15 ML Q2 HRS NEEDED PRN 09/20 1630 AC 09/21 PO 0826 Lidocaine 15 ML TID 09/20 1000 AC 09/22 PO 0756 Morphine Sulfate 2 MG Q4P PRN 09/19 1345 AC 09/21 IV 1335 Ondansetron HCl 4 MG ONCE ONE 09/21 1400 DC 09/21 IV 09/21 1401 1426 Pantoprazole Sodium 40 MG BID 09/19 2200 AC 09/21 IV 2038 Phenol 2 SPRAY Q2P PRN 09/21 1030 AC EXT Potassium Chloride 10 MEQ Q1H 09/21 1200 DC 09/21 IV 09/21 1401 1426 Potassium Chloride 20 MEQ DAILY 09/20 1000 AC PO Pravastatin Sodium 40 MG DAILY 09/20 1000 AC PO Sucralfate 1 GM 4 TIMES/DAY 09/19 1400 AC 09/20 PO 1745 Trimethobenzamide HCl 200 MG TID PRN 09/19 1515 AC 09/21 IM 1045 Results Last 24 Hours of Lab Results: Laboratory Tests 09/22 0616 Chemistry Sodium (137 - 145 mmol/L) 133 L Potassium (3.5 - 5.1 mmol/L) 3.6 Chloride (98 - 107 mmol/L) 105 Carbon Dioxide (22 - 30 mmol/L) 26 Anion Gap (5 - 16) 3 L BUN (7 - 17 mg/dL) 3 L Creatinine (0.5 - 1.0 mg/dL) 0.8 Estimated GFR (>60 ml/min) > 60 BUN/Creatinine Ratio (7 - 25 %) 3.8 L Magnesium (1.6 - 2.3 mg/dL) 1.7 Hematology CBC w Diff NO MAN DIFF REQ WBC (4.8 - 10.8 /CUMM) 2.4 L RBC (4.20 - 5.40 /CUMM) 2.64 L Hgb (12.0 - 16.0 G/DL) 7.8 L Hct (37 - 47 %) 23.9 L MCV (81.0 - 99.0 FL) 90.3 MCH (27.0 - 31.0 PG) 29.3 RDW (11.5 - 14.5 %) 22.8 H Plt Count (130 - 400 /CUMM) 284 MPV (7.4 - 10.4 FL) 6.8 L Gran % (42.2 - 75.2 %) 38.7 L Lymphocytes % (20.5 - 51.1 %) 45.9 Monocytes % (1.7 - 9.3 %) 10.6 H Eosinophils % (0 - 5 %) 4.2 Basophils % (0.0 - 2.0 %) 0.6 Absolute Granulocytes (1.4 - 6.5 /CUMM) 0.9 L Absolute Lymphocytes (1.2 - 3.4 /CUMM) 1.1 L Absolute Monocytes (0.10 - 0.60 /CUMM) 0.3 Absolute Eosinophils (0.0 - 0.7 /CUMM) 0.1 Absolute Basophils (0.0 - 0.2 /CUMM) 0 PUBS MCHC (33.0 - 37.0 G/DL) 32.5 L Assessment/Plan Assessment/Recommendations: Ms. 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 She has been having symptoms for a few weeks without improvement with Carafate and pantoprazole. Restaging scan with CT chest, abdomen, and pelvis demonstrated stable uterine mass and slightly improved lung nodules. There is an area in the RUL which is concerning for pneumonia versus neoplastic. EGD demonstrated severe ulcerative esophagitis with stricture formation. Etiology unclear. OLINDA prep is negative. Pathology is pending. She will continue on PPI and viscous lidocaine. Oral intake is still poor. I discussed option of PEG tube placement if she is unable to take any significant intake to keep up nutritional needs. PEG placement would be difficult per Dr. Lee. She would likely need IR and GI to coordinate given the stricture. She will try to increase her intake and take more of the pain medication over the weekend. She is still constipated. Recommendations: 1. Follow up pathology 2. Continue PPI 3. Continue viscous lidocarine 4. Nutrition/Dietitian evaluation 5. Aggressive bowel regimen 6. Consider PEG placement if no improvement on oral intake Please call [phone] with any questions or concerns. Problem List: 1. Dysphagia 2. GERD (gastroesophageal reflux disease) 3. Uterine leiomyosarcoma
[2016-09-22 14:11] VITALS: BP 122/69
--- NOTE | 2016-09-22 18:07 | PN- Gastroenterology ---
Assessment/Plan Assessment/Recommendations: Severe esophagitis, with stricture formation, of unclear etiology. Unable to advance beyond clear liquid diet. Recommendations * Continue 2% viscous lidocaine by mouth every 2 hours as needed * Continue IV PPI twice a day * Clear liquids as tolerated; continue to attempt advancing to full liquids with polymeric supplements * Await pathology * May require gastrostomy tube, which could be coordinated with interventional radiology if needed (endoscopic insertion of nasogastric tube). Subjective Subjective: Only able to tolerate clear liquids, including Ensure clear. Difficulty with full liquids, with increased odynophagia. Objective Vital Signs and I&Os Vital Signs Date Time Temp Pulse Resp B/P Pulse O2 O2 Flow FiO2 Ox Delivery Rate 09/22 1411 99.1 68 20 122/69 96 09/22 0728 98.0 50 20 108/66 98 Room Air 09/21 2349 97.8 63 18 126/74 97 Room Air Intake & Output 09/22 1600 09/22 0400 09/21 1600 09/21 0400 09/20 1600 09/20 0400 Intake Total 617 147 2176 900 1135 100 Output Total 1650 650 500 550 Balance 600 600 -515 250 635 -450 Intake, IV 933 626 0149 600 1125 100 Intake, Oral 0 0 10 300 10 Output, Urine 1650 650 500 550 Patient 103 lb 105 lb Weight Physical Exam: Head and neck unrevealing. Abdomen soft, nontender. Current Medications: Current Medications Sig/Keny Start time Last Medication Dose Route Stop Time Status Admin Acetaminophen 325 MG Q6 PRN 09/19 1345 AC PO Acetaminophen 1,000 MG Q6P PRN 09/19 1345 AC 09/21 IV 0859 Albuterol Sulfate 2 PUF Q4-6 PRN PRN 09/19 1400 AC INH Alprazolam 0.25 MG DAILY NEEDED PRN 09/19 1400 AC 09/19 PO 09/26 1359 1607 Bupropion HCl 100 MG BID 09/19 2200 AC PO Dextrose/Sodium 1,000 ML Q13H 09/21 1200 AC 09/22 Chloride IV 1523 Dronabinol 2.5 MG EVERY 6HRS- NEED.. 09/19 1400 AC PO Enoxaparin Sodium 40 MG DAILY 09/19 1338 AC 09/22 SC 0943 Levothyroxine Sodium 50 MCG DAILY 09/22 1012 AC 09/22 IV 1044 Levothyroxine Sodium 0.1 MG DAILY 09/20 1000 DC 09/20 PO 0922 Lidocaine 15 ML Q2 HRS NEEDED PRN 09/20 1630 AC 09/22 PO 1301 Lidocaine 15 ML TID 09/20 1000 AC 09/22 PO 1546 Magnesium Sulfate 1 GM ONCE ONE 09/22 1015 DC 09/22 Dextrose/Water 100 ML IV 09/22 1414 1544 Morphine Sulfate 2 MG Q4P PRN 09/19 1345 AC 09/22 IV 1544 Pantoprazole Sodium 40 MG BID 09/19 2200 AC 09/22 IV 0945 Patient Medication 1 ED .STK-MED ONE 09/22 1435 DC Teaching ED 09/22 1436 Phenol 2 SPRAY Q2P PRN 09/21 1030 AC EXT Potassium Chloride 10 MEQ Q1H 09/22 1015 DC 09/22 IV 09/22 1116 1301 Potassium Chloride 20 MEQ DAILY 09/20 1000 DC PO Pravastatin Sodium 40 MG DAILY 09/20 1000 AC PO Sucralfate 1 GM 4 TIMES/DAY 09/19 1400 AC 09/22 PO 1803 Trimethobenzamide HCl 200 MG TID PRN 09/19 1515 AC 09/21 IM 1045 Results Pertinent Lab Results: Laboratory Tests 09/22 09/21 0616 0619 Chemistry Sodium (137 - 145 mmol/L) 133 L 129 L Potassium (3.5 - 5.1 mmol/L) 3.6 3.4 L Chloride (98 - 107 mmol/L) 105 104 Carbon Dioxide (22 - 30 mmol/L) 26 26 Anion Gap (5 - 16) 3 L -1 L BUN (7 - 17 mg/dL) 3 L 4 L Creatinine (0.5 - 1.0 mg/dL) 0.8 0.8 Estimated GFR (>60 ml/min) > 60 > 60 BUN/Creatinine Ratio (7 - 25 %) 3.8 L 5.0 L Magnesium (1.6 - 2.3 mg/dL) 1.7 Hematology CBC w Diff NO MAN DIFF REQ NO MAN DIFF REQ WBC (4.8 - 10.8 /CUMM) 2.4 L 2.6 L RBC (4.20 - 5.40 /CUMM) 2.64 L 2.73 L Hgb (12.0 - 16.0 G/DL) 7.8 L 8.1 L Hct (37 - 47 %) 23.9 L 24.6 L MCV (81.0 - 99.0 FL) 90.3 90.3 MCH (27.0 - 31.0 PG) 29.3 29.5 RDW (11.5 - 14.5 %) 22.8 H 22.6 H Plt Count (130 - 400 /CUMM) 284 267 MPV (7.4 - 10.4 FL) 6.8 L 6.5 L Gran % (42.2 - 75.2 %) 38.7 L 38.9 L Lymphocytes % (20.5 - 51.1 %) 45.9 47.7 Monocytes % (1.7 - 9.3 %) 10.6 H 9.4 H Eosinophils % (0 - 5 %) 4.2 3.5 Basophils % (0.0 - 2.0 %) 0.6 0.5 Absolute Granulocytes (1.4 - 6.5 /CUMM) 0.9 L 1.0 L Absolute Lymphocytes (1.2 - 3.4 /CUMM) 1.1 L 1.2 Absolute Monocytes (0.10 - 0.60 /CUMM) 0.3 0.2 Absolute Eosinophils (0.0 - 0.7 /CUMM) 0.1 0.1 Absolute Basophils (0.0 - 0.2 /CUMM) 0 0 PUBS MCHC (33.0 - 37.0 G/DL) 32.5 L 32.7 L / 04/ 0620 2150 Chemistry Sodium (137 - 145 mmol/L) 131 L Potassium (3.5 - 5.1 mmol/L) 3.9 Chloride (98 - 107 mmol/L) 104 Carbon Dioxide (22 - 30 mmol/L) 27 Anion Gap (5 - 16) 0 L BUN (7 - 17 mg/dL) 7 Creatinine (0.5 - 1.0 mg/dL) 0.8 Estimated GFR (>60 ml/min) > 60 BUN/Creatinine Ratio (7 - 25 %) 8.8 Serum Osmolality (285 - 295 MOSM/KG) 278 L Hematology CBC w Diff NO MAN DIFF REQ WBC (4.8 - 10.8 /CUMM) 2.8 L RBC (4.20 - 5.40 /CUMM) 2.47 L Hgb (12.0 - 16.0 G/DL) 7.4 *L Hct (37 - 47 %) 22.1 L MCV (81.0 - 99.0 FL) 89.5 MCH (27.0 - 31.0 PG) 29.9 RDW (11.5 - 14.5 %) 22.1 H Plt Count (130 - 400 /CUMM) 233 MPV (7.4 - 10.4 FL) 6.4 L Gran % (42.2 - 75.2 %) 41.0 L Lymphocytes % (20.5 - 51.1 %) 45.3 Monocytes % (1.7 - 9.3 %) 10.6 H Eosinophils % (0 - 5 %) 2.5 Basophils % (0.0 - 2.0 %) 0.6 Absolute Granulocytes (1.4 - 6.5 /CUMM) 1.1 L Absolute Lymphocytes (1.2 - 3.4 /CUMM) 1.2 Absolute Monocytes (0.10 - 0.60 /CUMM) 0.3 Absolute Eosinophils (0.0 - 0.7 /CUMM) 0.1 Absolute Basophils (0.0 - 0.2 /CUMM) 0 PUBS MCHC (33.0 - 37.0 G/DL) 33.4 Urines Urine Color (YEL,AMB,STR) STRAW Urine Clarity (CLEAR) CLEAR Urine pH (5.0 - 8.0) 7.5 Ur Specific [place] (1.001 - 1.035) 1.010 Urine Protein (NEG,<30 MG/DL) NEG Urine Ketones (NEG) TRACE H Urine Nitrite (NEG) NEG Urine Bilirubin (NEG) NEG Urine Urobilinogen (0.1 - 1.0 EU/dl) 0.2 Ur Leukocyte Esterase (NEG) NEG Ur Microscopic EXAM NOT REQUIRED Urine Hemoglobin (NEG) NEG Urine Glucose (N MG/DL) NEG 09/19 2150 Urines Urine Osmolality (300 - 1000 MOSM/KG) 456 Ur Random Creatinine (mg/dL) 57.7 Ur Random Sodium (30 - 90 mmol/L) 127 H Ur Random Potassium (mmol/L) 28.5 Fraction Sodium Excret (<1% %) 1.3 H Imaging/Other Studies: Esophageal pathology pending. Potassium hydroxide prep negative for fungal elements.
--- NOTE | 2016-09-22 20:57 | NUR ---
0930- PT VOMITED AFTER CLEAR LIQUID BREAKFAST. CONTINUES TO HAVE THROAT PAIN. DR. MONDRAGON NOTFIED AND TO ASSESS AT BEDSIDE.
[2016-09-22 22:49] VITALS: BP 122/80
[2016-09-23 06:30] VITALS: BP 122/76
--- NOTE | 2016-09-23 08:24 | PN- Housestaff ---
GIANCARLO PERDUE,[facility] 09/23/16 0823: Subjective Follow-up For: Dysphagia Subjective: Patient was seen and examined this morning, she was sitting comfortably on bed having Breakfast, patient reported not eating anything since lunch last night because she had lunch around 3 PM. Reported that the patient had epigastric pain over night but nothing this morning, at the moment patient denied any pain, nausea or vomiting. No bowel movement yet. Vital signs are stable. Review of Systems Constitutional: Reports: see HPI. Objective Last 24 Hrs of Vital Signs/I&O Vital Signs Date Time Temp Pulse Resp B/P Pulse O2 O2 Flow FiO2 Ox Delivery Rate 09/23 0630 98.0 52 18 122/76 99 Room Air 09/22 2249 97.9 54 20 122/80 99 09/22 1411 99.1 68 20 122/69 96 Intake & Output 09/23 1600 09/23 0800 09/23 0000 Intake Total 600 300 Output Total 450 100 Balance 150 200 Intake, IV 600 300 Output, Urine 450 100 Physical Exam General Appearance: Alert, Oriented X3, Cooperative, No Acute Distress Skin: No Rashes, No Breakdown, No Significant Lesion HEENT: Atraumatic, PERRLA, EOMI, Mucous Membr. moist/pink Neck: Supple Cardiovascular: Regular Rate, Normal S1, Normal S2, No Murmurs Lungs: Clear to Auscultation, Normal Air Movement Abdomen: Normal Bowel Sounds, Soft, No Tenderness Neurological: Normal Gait, Normal Speech, Strength at 5/5 X4 Ext, Normal Tone, Sensation Intact, Cranial Nerves 3-12 NL, Reflexes 2+ Extremities: No Clubbing, No Cyanosis, No Edema, Normal Pulses Assessment/Plan Assessment: Ms. 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 difficile positive, patient presented to ED with chief complaint of difficulty and painful swallowing for the last [address] chest with out IV contrast, CT abdomen and pelvis with contrast 10/02 There is new circumferential wall thickening of the mid/distal esophagus, approximately 9 cm in length extending to the gastroesophageal junction with surrounding soft tissue thickening/stranding which is most likely inflammatory/infectious, with esophageal air-fluid level. The colonic wall thickening has significantly improved, with persistent thickening of the ascending colon and a portion of the sigmoid. Similar-appearing complex uterine masses. Stable subcentimeter exophytic left renal lesion. L4 burst fracture with lytic destruction and marked central stenosis. Right upper lobe, middle lobe, and lower lobe nodules have slightly decreased in size. There is a new small area of airspace opacity in the posterolateral aspect of the right upper lobe, abutting the major fissure, which may represent pneumonia. Problem list #Uterine leiomyosarcoma stage IV #Metastatic disease #Electrolyte imbalance #Abnormal CBC #Hypothyroidism #Hypertension and hyperlipidemia #Uterine leiomyosarcoma stage IV -Lung and bone metastasis currently on chemotherapy single agent gemcitabine -Elevated alkaline phosphatase mostly due to bone metastasis -Recent onset of odontophagia and dysphagia not responding to PPI or Carafate -CT scan revealed new circumferential wall thickening of the mid/distal esophagus, approximately 9 cm in length extending to the gastroesophageal junction with surrounding soft tissue thickening/stranding which is most likely inflammatory/infectious -Oncology consultation was obtained, thanks for recommendation -GI consultation was obtained, thanks for recommendation -Upper endoscopy revealed severe ulcerative esophagitis with stricture formation. Etiology unclear; the appearance is not classic for fungal or viral infection -We will continue clear liquid diet for now and evaluate tolerance, will monitor for 1 more day Sunday 09/24, if patient continue to have poor oral intake well scheduled for INR PEG tube insertion tomorrow -G I recommendation to avoid cereal, yogurt and pudding at this time as the patient has severe esophagitis with stricture and it would be difficult for her to eat solids including thick liquids -Continue IV PPI and viscous lidocaine 2% 3 times before meal schedule doses and every 2 hours when necessary -Nutrition, PT and OT consultation will obtained -Decrease normal saline to 60 mL/h (recent EKG 2015 normal left ventricular ejection fraction, stage I diastolic dysfunction) given poor oral intake -OLINDA didn't show any fungal infection -Pathology report is pending -We'll start MiraLAX #Electrolyte imbalance -Hyponatremia, improved 133<129 -Hypokalemia, and hypomagnesemia--repleted, improved-- -Repeat BMP and replete as needed #Abnormal CBC -WBC 2.4, absolute neutrophilia count 0.9 -Microcytic anemia, MCV 88, due to chronic disease on chemotherapy #Hypothyroidism -Patient is unable to take any oral medication -Continue levothyroxine to IV 50 g daily #Hyperlipidemia -Pravastatin 40 mg daily #Depression and anxiety -Alprazolam 0.25 mg daily as needed -Bupropion 100 mg twice a day DVT prophylaxis Lovenox Diet clear liquid Code full Consultation GI, oncology, nutrition, PT, OT Problem List: 1. Dysphagia Pain Ratin Pain Location: Epigastric pain Pain Goal: Pain 4 or less Pain Plan: -Viscous lidocaine 2% 3 times before meal schedule doses and every 2 hours when necessary -Moorphine IV 2mg for severe pain Tomorrow's Labs & Rationales: CBC in setting of anemia FIBREGLASS GUN HAND the setting of electrolyte disturbance DIANNE TINSLEY MD 09/23/16 1059: Attending MD Review Statement Attending Statement Attending MD Statement: examined this patient (patient similarly), discuss w/ resident/PA/TOP EDGE BEVELER, agreed w/resident/PA/TOP EDGE BEVELER, reviewed EMR data (avail), discussed with nursing, amended to note Attending Assessment/Plan: Patient seen and examined. Lying comfortably in bed and not in acute distress. Denies any pain this morning. She reports that she is tolerating clear liquid diets particularly broths and ensure however her oral intake remains poor. She is ambulating with the nursing staff. She has had no bowel movements in the past few days however she denies abdominal discomfort or pain. On examination abdomen is nondistended soft and nontender. Recommendations: -Decrease IV fluids reduced to 60 mL per hour. -Continue clear liquid diet as tolerated. -If intake is not optimal by tomorrow we'll consider making patient nothing by mouth past midnight for possible PEG tube placement on Sunday. -Begin patient on MiraLAX.
[2016-09-23 08:29] LABS: PT 12.6 SEC (9.4-12.5)
--- NOTE | 2016-09-23 12:36 | Transfer of Care Summary ---
Hospital Course Course Hospital Course: Ms. 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 difficile positive, patient presented to ED with chief complaint of difficulty and painful swallowing for the last 3 weeks. Patient reported epigastric pain on/off with and without swallowing associated with nausea and spitting but no vomiting. Patient denied any abdominal pain, diarrhea or constipation. She is following with Dr. Cavanaugh for uterine leiomyosarcoma on chemotherapy. Imaging CT chest with out IV contrast, CT abdomen and pelvis with contrast 10/02 There is new circumferential wall thickening of the mid/distal esophagus, approximately 9 cm in length extending to the gastroesophageal junction with surrounding soft tissue thickening/stranding which is most likely inflammatory/infectious, with esophageal air-fluid level. The colonic wall thickening has significantly improved, with persistent thickening of the ascending colon and a portion of the sigmoid. Similar-appearing complex uterine masses. Stable subcentimeter exophytic left renal lesion. L4 burst fracture with lytic destruction and marked central stenosis. Right upper lobe, middle lobe, and lower lobe nodules have slightly decreased in size. There is a new small area of airspace opacity in the posterolateral aspect of the right upper lobe, abutting the major fissure, which may represent pneumonia. Patient was admitted to general medical floor for the following problems: Problem list #Uterine leiomyosarcoma stage IV #Metastatic disease #Electrolyte imbalance #Abnormal CBC #Hypothyroidism #Hypertension and hyperlipidemia #Uterine leiomyosarcoma stage IV -Lung and bone metastasis currently on chemotherapy single agent gemcitabine -Elevated alkaline phosphatase mostly due to bone metastasis -Recent onset of odontophagia and dysphagia not responding to outpatient managment PPI or Carafate -CT scan revealed new circumferential wall thickening of the mid/distal esophagus, approximately 9 cm in length extending to the gastroesophageal junction with surrounding soft tissue thickening/stranding which is most likely inflammatory/infectious -Oncology consultation was obtained, thanks for recommendation -GI consultation was obtained, thanks for recommendation -Upper endoscopy revealed severe ulcerative esophagitis with stricture formation. Etiology unclear; the appearance is not classic for fungal or viral infection -Patient is on clear liquid, not tolerating oral intake well despite viscous lidocaine 2% TIDAC and Q2h PRN, morphine IV 2 mg Q4PRN. Plan to place PEG tube Monday 09/25 by IR -Continue IV PPI and viscous lidocaine 2% 3 times before meal schedule doses and every 2 hours when necessary, morphine IV 2 mg every 4 when necessary -Nutrition, PT and OT consultation will obtained -D5 normal saline to 75 mL/h (recent EKG 2015 normal left ventricular ejection fraction, stage I diastolic dysfunction) -OLINDA didn't show any fungal infection -Pathology report is pending, please follow up results -Patient has no bowel movement since admission 09/18, MiraLAX was ordered but patient is able to tolerate drink it #Electrolyte imbalance -Hyponatremia, on NS, continue monitor -Hypokalemia, and hypomagnesemia please repeat BEP daily and replete as needed #Abnormal CBC -WBC 2.4, absolute neutrophilia count 0.9 -Microcytic anemia, MCV 88, due to chronic disease on chemotherapy -Iron study and B12 level are pending #Hypothyroidism -Patient is unable to take any oral medication -Continue levothyroxine to IV 50 g daily #Hyperlipidemia -Pravastatin 40 mg daily--on hold for dysphagia #Depression and anxiety -Alprazolam 0.25 mg daily as needed--on hold for dysphagia -Bupropion 100 mg twice a day--on hold for dysphagia DVT prophylaxis Lovenox PEG tube placement Code full Consultation GI, oncology, nutrition, PT, OT Assessment/Plan: please see above
[2016-09-23 15:10] VITALS: BP 124/78
[2016-09-23 23:46] VITALS: BP 120/72
[2016-09-24 07:18] VITALS: BP 131/73
--- NOTE | 2016-09-24 08:25 | PN- Housestaff ---
GIANCARLO PERDUE,[facility] 09/24/16 0825: Subjective Follow-up For: Severe esophageal ulceration with stricture Subjective: Patient was seen and examined this morning, vital signs are stable. Patient's oral intake is very poor, she is not able to drink anything this morning including the Xylocaine solution. At the moment she reported epigastric pain 3 or 4/10, on and off dry heaves. Patient denied chest pain, cough, shortness of breath, dysuria. No bowel movement yet and unable to drink MiraLAX. Review of Systems Constitutional: Reports: see HPI. Objective Last 24 Hrs of Vital Signs/I&O Vital Signs Date Time Temp Pulse Resp B/P Pulse O2 O2 Flow FiO2 Ox Delivery Rate 09/24 0718 97.8 54 18 131/73 91 Room Air 09/23 2346 97.8 60 18 120/72 97 Room Air 09/23 1510 98.1 63 20 124/78 98 Intake & Output 09/24 1600 09/24 0800 09/24 0000 Intake Total 500 900 Output Total Balance 500 900 Intake, IV 500 420 Intake, Oral 480 Physical Exam General Appearance: Alert, Oriented X3, Cooperative, No Acute Distress Skin: No Rashes, No Breakdown, No Significant Lesion HEENT: Atraumatic, PERRLA, EOMI, Mucous Membr. moist/pink Neck: Supple Cardiovascular: Regular Rate, Normal S1, Normal S2, No Murmurs Lungs: Clear to Auscultation, Normal Air Movement Abdomen: Normal Bowel Sounds, Soft, No Tenderness Neurological: Normal Gait, Normal Speech, Strength at 5/5 X4 Ext, Normal Tone, Sensation Intact, Cranial Nerves 3-12 NL, Reflexes 2+ Extremities: No Clubbing, No Cyanosis, No Edema, Normal Pulses Assessment/Plan Assessment: Ms. 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 difficile positive, patient presented to ED with chief complaint of difficulty and painful swallowing for the last [address] chest with out IV contrast, CT abdomen and pelvis with contrast 10/02 There is new circumferential wall thickening of the mid/distal esophagus, approximately 9 cm in length extending to the gastroesophageal junction with surrounding soft tissue thickening/stranding which is most likely inflammatory/infectious, with esophageal air-fluid level. The colonic wall thickening has significantly improved, with persistent thickening of the ascending colon and a portion of the sigmoid. Similar-appearing complex uterine masses. Stable subcentimeter exophytic left renal lesion. L4 burst fracture with lytic destruction and marked central stenosis. Right upper lobe, middle lobe, and lower lobe nodules have slightly decreased in size. There is a new small area of airspace opacity in the posterolateral aspect of the right upper lobe, abutting the major fissure, which may represent pneumonia. Problem list #Uterine leiomyosarcoma stage IV #Metastatic disease #Electrolyte imbalance #Abnormal CBC #Hypothyroidism #Hypertension and hyperlipidemia #Uterine leiomyosarcoma stage IV -Lung and bone metastasis currently on chemotherapy single agent gemcitabine -Elevated alkaline phosphatase mostly due to bone metastasis -Recent onset of odontophagia and dysphagia not responding to PPI or Carafate -CT scan revealed new circumferential wall thickening of the mid/distal esophagus, approximately 9 cm in length extending to the gastroesophageal junction with surrounding soft tissue thickening/stranding which is most likely inflammatory/infectious -Oncology consultation was obtained, thanks for recommendation -GI consultation was obtained, thanks for recommendation -Upper endoscopy revealed severe ulcerative esophagitis with stricture formation. Etiology unclear; the appearance is not classic for fungal or viral infection -Patient is on clear liquid, not tolerating oral intake well, will place nothing by mouth for possible PEG tube insertion tomorrow Monday 09/25 by IR, order was placed -Continue IV PPI and viscous lidocaine 2% 3 times before meal schedule doses and every 2 hours when necessary, morphine IV 2 mg every 4 when necessary -Nutrition, PT and OT consultation will obtained -Given very poor oral intake, will increase D5 normal saline to 75 mL/h (recent EKG 2015 normal left ventricular ejection fraction, stage I diastolic dysfunction) -OLINDA didn't show any fungal infection -Pathology report is pending -Patient has no bowel movement since admission 09/18, MiraLAX was ordered but patient is able to tolerate drink it #Electrolyte imbalance -Hyponatremia, given poor oral intake, will increase IV fluid -Hypokalemia, and hypomagnesemia--repleted -Repeat BMP and replete as needed #Abnormal CBC -WBC 2.4, absolute neutrophilia count 0.9 -Microcytic anemia, MCV 88, due to chronic disease on chemotherapy #Hypothyroidism -Patient is unable to take any oral medication -Continue levothyroxine to IV 50 g daily #Hyperlipidemia -Pravastatin 40 mg daily #Depression and anxiety -Alprazolam 0.25 mg daily as needed -Bupropion 100 mg twice a day DVT prophylaxis Lovenox Diet clear liquid, nothing by mouth at midnight for PEG tube placement Code full Consultation GI, oncology, nutrition, PT, OT Problem List: 1. Dysphagia Pain Ratin Pain Location: Epigastric pain, esophageal pain Pain Goal: Pain 4 or less Pain Plan: Xylocaine 2% solution before meals and every 2 as needed. Morphine 2 mg IV every 4 as needed Tomorrow's Labs & Rationales: [facility] for hemoglobin monitoring BMP for electrolyte imbalance DIANNE TINSLEY MD 09/24/16 1145: Attending MD Review Statement Attending Statement Attending MD Statement: examined this patient, discuss w/resident/PA/SPOUTING INSTALLER, agreed w/resident/PA/SPOUTING INSTALLER, reviewed EMR data (avail), discussed with nursing, amended to note Attending Assessment/Plan: Patient seen and examined. She complained of chest discomfort this morning before eating. Her oral intake remains very poor. She is not taking significant amounts of oral intake. She is certainly not ready for advancement of her diet at this time. In view of this we will keep her nothing by mouth past midnight and discussed the case with the GI service for consideration of placement of a PEG tube. Patient will this recommendation. She is understandably distraught about it. We'll continue all other supportive care. Repeat CBC morning to ensure stability of her hemoglobin levels. Her hyponatremia is likely secondary to poor intake. Increase rate of IV fluids to 75 mL an hour. Supplement potassium levels.
[2016-09-24 08:41] LABS: ABSOLUTE BASOPHIL COUNT 0 /CUMM (0.0-0.2); ABSOLUTE EOSINOPHIL COUNT 0.1 /CUMM (0.0-0.7); ABSOLUTE GRANULOCYTE CT 0.8 /CUMM (1.4-6.5); ABSOLUTE MONOCYTE COUNT 0.2 /CUMM (0.10-0.60); BASOPHIL % 0.6 % (0.0-2.0); EOSINOPHIL % 4.4 % (0-5); GRANULOCYTE % 37.1 % (42.2-75.2); HEMATOCRIT 23.1 % (37-47); MEAN CORPUSCULAR HGB 29.5 PG (27.0-31.0); MEAN CORPUSCULAR HGB CONC 32.1 G/DL (33.0-37.0); MEAN CORPUSCULAR VOLUME 91.9 FL (81.0-99.0); MEAN PLATELET VOLUME 6.6 FL (7.4-10.4); PLATELET COUNT 302 /CUMM (130-400); RBC DISTRIBUTION WIDTH 22.4 % (11.5-14.5); RED BLOOD CELL CT 2.52 /CUMM (4.20-5.40); WHITE BLOOD CELL COUNT 2.1 /CUMM (4.8-10.8)
--- NOTE | 2016-09-24 11:43 | NUR ---
SPOKE WITH TECHNICAL OPERATOR REGARDING INABILITY TO SWALLOW ANYTHING THIS MORNING WITHOUT CRYING IN PAIN. PT UNABLE TO SWALLOW LIDOCAINE THIS AM BUT WILLING TO TRY BEFORE LUNCH. REFUSED PO MEDICATIONS. TECHNICAL OPERATOR REGINA AWARE. PT TO BE NPO AT MIDNIGHT FOR FLUOROSCOPY IN AM. PT AGREEABLE TO PLAN. WILL MONITOR.
[2016-09-24 14:16] VITALS: BP 122/58
--- NOTE | 2016-09-24 15:06 | NUR ---
GAVE PT MAGNESIUM BOLUS AT 1455. UNABLE TO DOCUMENT IN COMPUTER. CALLED PHARMACY WHO DIRECTED THIS NURSE TO THE MEAT MOLDER TO CONNECT TO IT. PER MEAT MOLDER, IT GONE FOR THE WEEKEND. WILL PASS ONTO NEXT RN IN ORDER TO PREVENT DUPLICATION.
--- NOTE | 2016-09-24 15:08 | NUR ---
DIRECTED BY 2ND PHARMACIST TO CALL IT DEMAND INSPECTOR. BEEPER [id number]. AWAITING REPLY.
[2016-09-24 23:23] VITALS: BP 116/60
--- NOTE | 2016-09-25 05:32 | PN- Housestaff ---
SKYLER PERDUE,CRISTAL 09/25/16 0532: Subjective Follow-up For: Metastatic uterine leiomyosarcoma Dysphagia Subjective: Patient seen and examined. She is seen lying flat in bed resting comfortably. She appears to be in no acute distress. She reports sleeping well last night and has no new complaints. Otherwise she denies any blurred/double vision, lightheadedness/dizziness, headache, fever, chills, chest pain, palpitations, shortness breath, cough, nausea, vomiting, diarrhea. No overnight events reported. Review of Systems Constitutional: Reports: see HPI. Objective Last 24 Hrs of Vital Signs/I&O Vital Signs Date Time Temp Pulse Resp B/P Pulse O2 O2 Flow FiO2 Ox Delivery Rate 09/25 0653 98.2 54 16 124/80 99 Room Air 09/24 2323 97.7 52 20 116/60 97 Room Air Intake & Output 09/25 1600 09/25 0800 09/25 0000 Intake Total 900 225 Output Total 300 Balance 900 -75 Intake, IV 600 225 Intake, Oral 300 Output, Urine 300 Patient 46.72 kg Weight Physical Exam General Appearance: Alert, Oriented X3, Cooperative, No Acute Distress Other Physical Findings: General -thin/frail, elderly woman in no acute distress HEENT - NCAT, PERRL, EOMI, anicteric sclera Cardio - S1, S2 w/o murmurs/gallops/rubs Resp - CTA bilaterally w/o wheezing/rhochi/crackles GI - soft, nontender, nondistended, bowel sounds present Neuro - Awake and alert, CN II - XII grossly intact Extremities - no edema, pulses intact Current Medications: Current Medications Sig/Keny Start time Last Medication Dose Route Stop Time Status Admin Acetaminophen 325 MG Q6 PRN 09/19 1345 AC PO Acetaminophen 1,000 MG Q6P PRN 09/19 1345 AC 09/21 IV 0859 Albuterol Sulfate 2 PUF Q4-6 PRN PRN 09/19 1400 AC INH Alprazolam 0.25 MG DAILY NEEDED PRN 09/19 1400 AC 09/19 PO 09/26 1359 1607 Bupropion HCl 100 MG BID 09/19 2200 AC PO Dextrose/Sodium 1,000 ML Q13H 09/21 1200 AC 09/25 Chloride IV 0937 Dronabinol 2.5 MG EVERY 6HRS- NEED.. 09/19 1400 AC PO Enoxaparin Sodium 40 MG DAILY 09/19 1338 DC 09/24 SC 1050 Glucagon 0 .STK-MED ONE 09/25 1234 DC .ROUTE Levothyroxine Sodium 50 MCG DAILY 09/22 1012 AC 09/25 IV 0937 Lidocaine 0 .STK-MED ONE 09/25 1234 DC .ROUTE Lidocaine 15 ML TIDAC 09/24 1200 AC PO Lidocaine 15 ML Q2 HRS NEEDED PRN 09/20 1630 AC 09/23 PO 1206 Lidocaine/Diphenhydr/ 15 ML Q6 PRN 09/25 1200 AC Alum/Mg/Simeth PO Magnesium Sulfate 1 GM ONCE ONE 09/24 1330 DC 09/24 Dextrose/Water 100 ML IV 09/24 1729 1638 Morphine Sulfate 2 MG Q4P PRN 09/19 1345 AC 09/24 IV 2209 Pantoprazole Sodium 40 MG BID 09/19 2200 AC 09/25 IV 0937 Phenol 2 SPRAY Q2P PRN 09/21 1030 AC EXT Polyethylene Glycol 17 GM DAILY 09/23 1159 AC 09/24 PO 1050 Pravastatin Sodium 40 MG DAILY 09/20 1000 AC PO Sucralfate 1 GM 4 TIMES/DAY 09/19 1400 AC 09/23 PO 1822 Trimethobenzamide HCl 200 MG TID PRN 09/19 1515 AC 09/21 IM 1045 Last 24 Hrs of Lab/Jose Results Last 24 Hrs of Labs/Mics: Laboratory Tests 09/25/16 0630: Anion Gap 3 L, Estimated GFR > 60, BUN/Creatinine Ratio 3.8 L, CBC w Diff NO MAN DIFF REQ, RBC 2.58 L, MCV 90.8, MCH 29.8, RDW 21.3 H, MPV 6.7 L, Gran % 30.7 L, Lymphocytes % 54.3 H, Monocytes % 10.7 H, Eosinophils % 3.7, Basophils % 0.6, Absolute Granulocytes 0.7 L, Absolute Lymphocytes 1.2, Absolute Monocytes 0.2, Absolute Eosinophils 0.1, Absolute Basophils 0, PUBS MCHC 32.8 L Assessment/Plan Assessment: Patient was made nothing by mouth overnight in anticipation for a CT-guided PEG tube placement today. Patient is to have tube feeds start tomorrow morning. Lovenox was held for the surgical procedure. Uterine leiomyosarcoma stage IV /dysphagia Patient is currently receiving chemotherapy for her metastatic uterine leiomyosarcoma. She is admitted to the general medicine floor for further evaluation of her new onset dysphagia. ET scan revealed new circumferential wall thickening of the mid/distal esophagus. -Gen. medicine -Status post PEG tube placement -Tube feeds -Protonix 40 mg IV twice a day -Dronabinol 2.5 mg by mouth every 6 hours as needed for nausea -Tigan 200 mg IM 3 times a day as needed for nausea -Carafate suspension 1 g by mouth 4 times a day -Hematology/oncology consult -Gastroenterology consult -Nutrition consult -PT consult -Follow-up pathology -Follow-up B12/folate levels Depression/anxiety -Alprazolam 0.25 mg by mouth daily as needed -Bupropion 100 mg by mouth twice a day Hypothyroidism-Synthroid 50 g IV daily Hyperlipidemia-pravastatin 40 mg by mouth daily Pain plan-acetaminophen/morphine Diet-tube feeds starting 09/26/16 DVT prophylaxis-Lovenox CODE STATUS-full code Problem List: 1. Dysphagia Pain Ratin Pain Location: None Pain Goal: Remain pain free Pain Plan: See assessment Tomorrow's Labs & Rationales: CBC - Anemia/leukopenia BEP - Tube feeds LAUREANO PERDUE,DIANNE 09/25/16 1328: Attending MD Review Statement Attending Statement Attending MD Statement: examined this patient, discuss w/resident/PA/FULL STACK ENGINEER, agreed w/resident/PA/FULL STACK ENGINEER, reviewed EMR data (avail), discussed with nursing, discussed with case mgmt, amended to note Attending Assessment/Plan: Patient seen and examined. Resting comfortably not in acute distress. I did tell my evaluation she denied any pain. She reports that her pain is controlled by the current regimen. She is scheduled to undergo CT-guided placement of the PEG tube today. Following these will obtain principal research economist consult, podiatry recommendations. She may be discharged in the next 24-48 hours if she is tolerating tube feeding. She may continue oral intake as tolerated. Hematology follow-up appreciated. Follow-up recommendations for anemia workup if not previously done as an outpatient with the hematology service she follows with. Pathology reports are still pending from her EGD procedure. DIANNE TINSLEY MD 09/25/16 1328: Attending Review Statement Attending Statement Attending MD Statement: examined this patient, discuss w/resident/PA/FULL STACK ENGINEER, agreed w/resident/PA/FULL STACK ENGINEER, reviewed EMR data (avail), discussed with nursing, discussed with case mgmt, amended to note Attending Assessment/Plan: Patient seen and examined. Resting comfortably not in acute distress. I did tell my evaluation she denied any pain. She reports that her pain is controlled by the current regimen. She is scheduled to undergo CT-guided placement of the PEG tube today. Following these will obtain principal research economist consult, podiatry recommendations. She may be discharged in the next 24-48 hours if she is tolerating tube feeding. She may continue oral intake as tolerated. Hematology follow-up appreciated. Follow-up recommendations for anemia workup if not previously done as an outpatient with the hematology service she follows with. Pathology reports are still pending from her EGD procedure.
[2016-09-25 06:53] VITALS: BP 124/80
--- NOTE | 2016-09-25 08:06 | PN- Oncology ---
Subjective Subjective: She feels well. She has no new pain. Intermittent abdominal pain is still there. She is still not able to take in significant amount of oral intake. She has no significant nausea/vomiting/diarrhea. Review of Systems: Constitutional: Denies: chills, fever. HEENT: Reports: sore throat Cardiovascular: Denies: chest pain. Gastrointestinal: Reports: abdominal pain. Genitourinary: Denies: dysuria. Neurological/Psychological: Denies: anxiety, confusion. Immunologic/Allergic: Denies: no symptoms. All Other Systems: Reviewed and Negative Objective Vital Signs and I&Os Vital Signs Date Time Temp Pulse Resp B/P Pulse O2 O2 Flow FiO2 Ox Delivery Rate 09/25 0653 98.2 54 16 124/80 99 Room Air 09/24 2323 97.7 52 20 116/60 97 Room Air 09/24 1416 97.8 61 20 122/58 99 Intake & Output 09/25 1600 09/25 0800 09/25 0000 09/24 1600 09/24 0800 09/24 0000 Intake Total 225 605 500 900 Output Total 300 Balance -75 605 500 900 Intake, IV 225 545 500 420 Intake, Oral 60 480 Number 0 Bowel Movements Output, Urine 300 Physical Exam: General Appearance: alert, awake, anxious, comfortable, thin, tearful Head: atraumatic, normal appearance Respiratory: normal breath sounds, chest non-tender, no respiratory distress Cardiovascular: regular rate/rhythm Gastrointestinal: normal bowel sounds, soft, non-tender, no organomegaly Extremities: normal inspection, no edema Neurologic/Psych: alert, oriented x 3 Other Physical Findings: right chest port access and without tenderness Current Medications: Current Medications Sig/Keny Start time Last Medication Dose Route Stop Time Status Admin Acetaminophen 325 MG Q6 PRN 09/19 1345 AC PO Acetaminophen 1,000 MG Q6P PRN 09/19 1345 AC 09/21 IV 0859 Albuterol Sulfate 2 PUF Q4-6 PRN PRN 09/19 1400 AC INH Alprazolam 0.25 MG DAILY NEEDED PRN 09/19 1400 AC 09/19 PO 09/26 1359 1607 Bupropion HCl 100 MG BID 09/19 2200 AC PO Dextrose/Sodium 1,000 ML Q13H 09/21 1200 AC 09/25 Chloride IV 0651 Dronabinol 2.5 MG EVERY 6HRS- NEED.. 09/19 1400 AC PO Enoxaparin Sodium 40 MG DAILY 09/19 1338 AC 09/24 SC 1050 Levothyroxine Sodium 50 MCG DAILY 09/22 1012 AC 09/24 IV 1050 Lidocaine 15 ML TIDAC 09/24 1200 AC PO Lidocaine 15 ML Q2 HRS NEEDED PRN 09/20 1630 AC 09/23 PO 1206 Lidocaine 15 ML TID 09/20 1000 DC 09/23 PO 2143 Magnesium Sulfate 1 GM ONCE ONE 09/24 1330 DC 09/24 Dextrose/Water 100 ML IV 09/24 1729 1638 Morphine Sulfate 2 MG Q4P PRN 09/19 1345 AC 09/24 IV 2209 Pantoprazole Sodium 40 MG BID 09/19 2200 AC 09/24 IV 2209 Phenol 2 SPRAY Q2P PRN 09/21 1030 AC EXT Polyethylene Glycol 17 GM DAILY 09/23 1159 AC 09/24 PO 1050 Potassium Chloride 10 MEQ Q1H 09/24 1015 DC 09/24 IV 09/24 1216 1348 Pravastatin Sodium 40 MG DAILY 09/20 1000 AC PO Sucralfate 1 GM 4 TIMES/DAY 09/19 1400 AC 09/23 PO 1822 Trimethobenzamide HCl 200 MG TID PRN 09/19 1515 AC 09/21 IM 1045 Results Last 24 Hours of Lab Results: Laboratory Tests 09/25 0630 Chemistry Sodium Pending Potassium Pending Chloride Pending Carbon Dioxide Pending Anion Gap Pending BUN Pending Creatinine Pending BUN/Creatinine Ratio Pending Hematology CBC w Diff Pending WBC Pending RBC Pending Hgb Pending Hct Pending MCV Pending MCH Pending RDW Pending Plt Count Pending MPV Pending PUBS MCHC Pending Assessment/Plan Assessment/Recommendations: Ms. 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 She has been having symptoms for a few weeks without improvement with Carafate and pantoprazole. Restaging scan with CT chest, abdomen, and pelvis demonstrated stable uterine mass and slightly improved lung nodules. There is an area in the RUL which is concerning for pneumonia versus neoplastic. EGD demonstrated severe ulcerative esophagitis with stricture formation. Etiology unclear. OLINDA prep is negative. Pathology is still pending. She will continue on PPI and viscous lidocaine. Oral intake remains poor. I again discussed PEG tube placement. Patient is amenable to the plan. She is tentatively planned for PEG placement today by IR. This may need to be coordinated with Dr. Lee given her stricture. Her WBC is also tending downward. She remains anemia. It may be reasonable to evaluate her vitamin B12, folate, and iron studies. Recommendations: 1. Follow up pathology 2. Continue PPI 3. Continue viscous lidocarine 4. Nutrition/Dietitian evaluation 5. Check vitamin B12 and folate level 6. Check iron studies 7. PEG placement for nutrition Please call [phone] with any questions or concerns. Problem List: 1. Dysphagia 2. Uterine leiomyosarcoma 3. Neutropenia
[2016-09-25 08:11] LABS: ABSOLUTE BASOPHIL COUNT 0 /CUMM (0.0-0.2); ABSOLUTE EOSINOPHIL COUNT 0.1 /CUMM (0.0-0.7); ABSOLUTE GRANULOCYTE CT 0.7 /CUMM (1.4-6.5); ABSOLUTE LYMPH COUNT 1.2 /CUMM (1.2-3.4); ABSOLUTE MONOCYTE COUNT 0.2 /CUMM (0.10-0.60); BASOPHIL % 0.6 % (0.0-2.0); EOSINOPHIL % 3.7 % (0-5); GRANULOCYTE % 30.7 % (42.2-75.2); HEMATOCRIT 23.4 % (37-47); MEAN CORPUSCULAR HGB 29.8 PG (27.0-31.0); MEAN CORPUSCULAR HGB CONC 32.8 G/DL (33.0-37.0); MEAN CORPUSCULAR VOLUME 90.8 FL (81.0-99.0); MEAN PLATELET VOLUME 6.7 FL (7.4-10.4); PLATELET COUNT 363 /CUMM (130-400); RBC DISTRIBUTION WIDTH 21.3 % (11.5-14.5); RED BLOOD CELL CT 2.58 /CUMM (4.20-5.40); WHITE BLOOD CELL COUNT 2.3 /CUMM (4.8-10.8)
[2016-09-25 16:50] VITALS: BP 110/60
--- NOTE | 2016-09-25 17:07 | NUR ---
PT ARRIVED BACK TO FLOOR FROM IR AT 1640. PT HAS PEG TUBE TO MID ABD, DRESSING CDI. PT C/O PAIN 02/25 TO ABD, MEDICATED WITH MORPHINE PER EMAR. C/O NAUSEA, MEDICATED WITH TIGAN PER EMAR. VITAL SIGNS STABLE. VITAL SIGNS TO BE Q1HR X2, Q4HRS X2, THEN Q SHIFT. WILL CONTINUE TO MONITOR.
--- NOTE | 2016-09-25 17:55 | RADIOLOGY REPORT ---
PROCEDURE: Percutaneous gastrostomy tube placement under CT guidance, postplacement fluoroscopic study for confirmation INDICATIONS: 65-year-old patient with a past medical history of leiomyosarcoma of the uterus now presenting with a malignant, ulceration stricture of the distal esophagus. The GI service unable to pass a endoscope past the stricture. Percutaneous gastrostomy tube placement requested. EVENT SECURITY OFFICER: Dr. Ezio Paige COMPARISON: CT of the chest, abdomen, and pelvis dated 09/19/2016. DESCRIPTION: Informed consent was obtained from the patient prior to the procedure. During this process, the procedure and potential alternatives was explained, along with the intended outcome and benefits. The risks of the procedure, as well as the risk of not doing the procedure, were discussed. The patient was given the opportunity to ask questions regarding the procedure and appeared competent to make medical decisions. A signed consent form which documents this discussion was placed in the medical record. Review was made of the patient's recent CT. This showed a relatively high riding transverse colon with a mobile right colon. There was a relatively narrow window for placement of a gastrostomy. For this reason, the procedure was scheduled under CT guidance. The patient is intubated and anesthesia provided support with the deep sedation. The patient was brought to the CT suite and a final timeout procedure was performed. The patient was placed in the CT gantry in the supine position. Attempt was made to pass a nasogastric tube and a Dobbhoff tube without success due to holdup at the level of the esophagogastric junction. [employer] sections were obtained through the abdomen with a grid device in the left subcostal area. An 18-gauge needle was introduced into the fundus of stomach under CT fluoroscopic guidance. Air was insufflated through the patient's the needle to distend the stomach. The stomach displaced the large and small bowel and there was a adequate window for access. The subxiphoid area and left upper quadrant were sterilely prepped and draped. Following administration of 1% lidocaine, 3 Saf-T-Pexy T-Fasteners were placed sequentially in a triangular configuration into the mid body the stomach via a medial left subcostal approach with return of air. They were secured via the suture locks to oppose the stomach to the anterior abdominal wall. With the stomach still insufflated and following local anesthesia, the safety introducer needle was advanced into the gastric lumen in the center of the Saf-T-Pexy T-Fasteners. Intraluminal positioning of the needle in the stomach was confirmed on CT. An Amplatz stiff guidewire was advanced through the needle and serial dilatations were made to allow advancement of a 24 [place] peel-away sheath in the stomach maintaining wire access. A 20 [place] gastrostomy tube successfully advanced through the peel-away sheath over the wire into the gastric lumen. The retention balloon was filled with 10 mL of normal saline. Injection of contrast was performed through the tube confirming positioning within the gastric lumen. Slotted dressings were placed around the catheter at the entry site and the retention disc was secured. The patient was then brought to the fluoroscopy suite and additional injections of contrast were made through the indwelling gastrostomy tube to confirm position. The G-tube was entering the body the stomach between the 3 Saf-T-Pexy T-Fasteners. Contrast filled the lumen of the stomach without evidence of extravasation. The patient tolerated the procedure well. There was no evidence of immediate complications. FLUOROSCOPY TIME: 1 minute, 42 seconds TOTAL DLP: 1091.8 mGy-cm TOTAL CONTRAST USED: 150 mL Omnipaque 320 CONCLUSION: Successful percutaneous placement of a 20 [place] gastrostomy tube into the mid body of the stomach under CT fluoroscopic guidance. The catheter may be used starting tomorrow.
[2016-09-25 18:14] VITALS: BP 120/60
--- NOTE | 2016-09-25 21:51 | NUR ---
MD MCCORMACK MADE AWARE THAT PT NPO AND UNABLE TO SWALLOW OR TAKE ANY PO SCHEDULED MEDICATIONS. PT HAS DIFFICULTY SWALLOWING WELL PAIN. PT GIVEN SCHEDULED IV MEDICATIONS. WILL CONTINUE TO MONITOR.
[2016-09-25 22:50] VITALS: BP 112/66
[2016-09-26 01:56] VITALS: BP 110/62
[2016-09-26 06:00] VITALS: BP 100/58
--- NOTE | 2016-09-26 07:06 | PN- Housestaff ---
KIRSTIN WERNER 09/26/16 0706: Subjective Follow-up For: Metastatic uterine leiomyosarcoma Dysphagia Status post PEG tube placement Subjective: Seen and examined patient. States she is in a bit of pain around site of PEG tube placement. States that morphine is helping the pain and that she would not like any changes to the pain medications at this time. Denies fever, chills , chest pain or shortness of breath. Review of Systems Constitutional: Denies: chills, diaphoresis, fever, malaise, weakness, unexplained weight loss. Cardiovascular: Denies: chest pain, edema, orthopena, palpitations, peripheral edema, syncope. Respiratory: Denies: cough, hemoptysis, orthopnea, short of breath, sputum production, stridor, wheezing. Gastrointestinal: Reports: abdominal pain. Objective Last 24 Hrs of Vital Signs/I&O Vital Signs Date Time Temp Pulse Resp B/P Pulse O2 O2 Flow FiO2 Ox Delivery Rate 09/26 0600 97.7 68 16 100/58 92 Room Air 09/26 0156 98.1 72 16 110/62 96 Room Air 09/25 2250 98.8 79 16 112/66 97 Room Air 09/25 1814 98.0 90 18 120/60 98 Room Air 09/25 1650 98.0 67 18 110/60 100 Room Air Intake & Output 09/26 1600 09/26 0800 09/26 0000 Intake Total 600 600 Output Total 500 700 Balance 100 -100 Intake, IV 600 600 Intake, Oral 0 0 Number 0 Bowel Movements Output, Urine 500 700 Physical Exam General Appearance: Alert, Oriented X3, No Acute Distress Cardiovascular: Regular Rate, Normal S1, Normal S2 Lungs: Normal Air Movement Abdomen: Normal Bowel Sounds, Soft, No Tenderness, no signs of ertheyma,bleeding swelling around site of PEG tube placement Extremities: No Edema Current Medications: Current Medications Sig/Keny Start time Last Medication Dose Route Stop Time Status Admin Acetaminophen 325 MG Q6 PRN 09/19 1345 AC PO Acetaminophen 1,000 MG Q6P PRN 09/19 1345 AC 09/21 IV 0859 Albuterol Sulfate 2 PUF Q4-6 PRN PRN 09/19 1400 AC INH Alprazolam 0.25 MG DAILY NEEDED PRN 09/19 1400 DC 09/19 PO 09/26 1359 1607 Bupropion HCl 100 MG BID 09/19 2200 AC 09/26 PO 0940 Dextrose/Sodium 1,000 ML Q13H 09/21 1200 AC 09/26 Chloride IV 1333 Dronabinol 2.5 MG EVERY 6HRS- NEED.. 09/19 1400 DC PO Levothyroxine Sodium 50 MCG DAILY 09/22 1012 AC 09/26 IV 0939 Lidocaine 15 ML TIDAC 09/24 1200 AC PO Lidocaine 15 ML Q2 HRS NEEDED PRN 09/20 1630 AC 09/23 PO 1206 Lidocaine/Diphenhydr/ 15 ML Q6 PRN 09/25 1200 AC Alum/Mg/Simeth PO Morphine Sulfate 2 MG Q2 PRN 09/26 1211 AC 09/26 IV 1234 Morphine Sulfate 2 MG Q4P PRN 09/19 1345 DC 09/26 IV 0940 Oxycodone HCl 10 MG Q12 09/26 1000 DC PO Oxycodone/ 2 TAB Q6 PRN 09/26 1215 AC Acetaminophen PO Pantoprazole Sodium 40 MG BID 09/19 2200 AC 09/26 IV 0940 Phenol 2 SPRAY Q2P PRN 09/21 1030 AC EXT Polyethylene Glycol 17 GM DAILY 09/23 1159 AC 09/24 PO 1050 Pravastatin Sodium 40 MG DAILY 09/20 1000 AC PO Sucralfate 1 GM 4 TIMES/DAY 09/19 1400 AC 09/23 PO 1822 Trimethobenzamide HCl 200 MG TID PRN 09/19 1515 AC 09/26 IM 1315 Last 24 Hrs of Lab/Jose Results Last 24 Hrs of Labs/Mics: Laboratory Tests 09/26/16 0543: Anion Gap 3 L, Estimated GFR > 60, BUN/Creatinine Ratio 3.8 L, Vitamin B12 873 , Folate 2.5 L, CBC w Diff NO MAN DIFF REQ, RBC 2.49 L, MCV 91.5, MCH 30.2, RDW 20.8 H, MPV 7.0 L, Gran % 65.8, Lymphocytes % 26.4, Monocytes % 7.2, Eosinophils % 0.3, Basophils % 0.3, Absolute Granulocytes 2.9, Absolute Lymphocytes 1.2, Absolute Monocytes 0.3, Absolute Eosinophils 0, Absolute Basophils 0, PUBS MCHC 33.0 Assessment/Plan Assessment: 65 year old female with past medical history significant for hyperlipidemia, hypothyroidism, chronic back pain, anxiety, depression, 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 difficile positive, current admission for dysphagia now status post PEG tube placement. Problem list: Dysphagia Leiomyosarcoma of uterine Anxiety/depression Hyperlipidemia Hypothyroidism Chronic back pain Anemia Plan: H/H stable at 7.5 -Status post PEG tube placement -We'll try to advance Tube feeds today -Protonix 40 mg IV twice a day -Dronabinol 2.5 mg by mouth every 6 hours as needed for nausea -Tigan 200 mg IM 3 times a day as needed for nausea -Carafate suspension 1 g by mouth 4 times a day -Appreciate Hematology/oncology commendations -Continue to work with -Follow-up pathology -B12/folate levels 873/2.5 -continue Alprazolam 0.25 mg -continue Bupropion 100 mg -continue Synthroid 50 g IV daily -continue pravastatin 40 mg by mouth daily Pain plan-morphine 2 mg every 2 when necessary for breakthrough pain, Percocet every 6 when necessary Diet-tube feeds starting 09/26/16 DVT prophylaxis-Lovenox CODE STATUS-full code Problem List: 1. Uterine leiomyosarcoma 2. S/P percutaneous endoscopic gastrostomy (PEG) tube placement 3. Metastasis 4. Hypothyroidism 5. Hyperlipidemia 6. Anemia Pain Ratin Pain Location: abdomen Pain Goal: Pain 4 or less Pain Plan: Morphine 2 mg IV every 2 hours Will also give Percocet q 6 as needed Tomorrow's Labs & Rationales: CBC to monitor her hemoglobin, BeP to monitor refeeding DIANNE TINSLEY MD 09/26/16 1024: Attending MD Review Statement Attending Statement Attending MD Statement: examined this patient, discuss w/resident/PA/SCREED PERSON, agreed w/resident/PA/SCREED PERSON, reviewed EMR data (avail), discussed with nursing, discussed with case mgmt, amended to note Attending Assessment/Plan: Gwendolyn was lying comfortably in bed and not in acute distress at the time. She however continues to complain of chest pain on and off. Due to her odynophagia she is not fully compliant with the Viscous Lidocaine. She reports that she has used OxyContin in the past with good pain control. Her PEG tube was placed successfully yesterday with no reported complications. Recommendations: -Begin tube feeding today. -Provide family with education about tube feeding -Start patient on OxyContin 10 mg via PEG tube twice daily for pain control. -Utilize Ultram 25 mg orally every 6 hours for breakthrough pain. -Anticipate discharge home tomorrow. -Repeat CBC in a.m. prior to discharge. -Supplement potassium level.
[2016-09-26 08:24] LABS: ABSOLUTE BASOPHIL COUNT 0 /CUMM (0.0-0.2); ABSOLUTE EOSINOPHIL COUNT 0 /CUMM (0.0-0.7); ABSOLUTE GRANULOCYTE CT 2.9 /CUMM (1.4-6.5); ABSOLUTE LYMPH COUNT 1.2 /CUMM (1.2-3.4); ABSOLUTE MONOCYTE COUNT 0.3 /CUMM (0.10-0.60); BASOPHIL % 0.3 % (0.0-2.0); EOSINOPHIL % 0.3 % (0-5); HEMATOCRIT 22.8 % (37-47); MEAN CORPUSCULAR HGB 30.2 PG (27.0-31.0); MEAN CORPUSCULAR VOLUME 91.5 FL (81.0-99.0); PLATELET COUNT 373 /CUMM (130-400); RBC DISTRIBUTION WIDTH 20.8 % (11.5-14.5); RED BLOOD CELL CT 2.49 /CUMM (4.20-5.40)
[2016-09-26 08:27] LABS: GRANULOCYTE % 65.8 % (42.2-75.2); WHITE BLOOD CELL COUNT 4.4 /CUMM (4.8-10.8)
--- NOTE | 2016-09-26 09:12 | PN- Oncology ---
Subjective Subjective: She under went IR guided PEG placement yesterday. She tolerated it relatively well. She did have some pain afterward but is improved today. She denies any fever or chills. Review of Systems Constitutional: Denies: chills, fever. Cardiovascular: Reports: chest pain. Respiratory: Denies: short of breath. Gastrointestinal: Reports: abdominal pain, nausea. Neurological/Psychological: Denies: anxiety. Hematologic/Endocrine: Denies: bleeding. Immunologic/Allergic: Denies: lymphadenopathy. All Other Systems: Reviewed and Negative Objective Vital Signs and I&Os Vital Signs Date Time Temp Pulse Resp B/P Pulse O2 O2 Flow FiO2 Ox Delivery Rate 09/26 0600 97.7 68 16 100/58 92 Room Air 09/26 0156 98.1 72 16 110/62 96 Room Air 09/25 2250 98.8 79 16 112/66 97 Room Air 09/25 1814 98.0 90 18 120/60 98 Room Air 09/25 1650 98.0 67 18 110/60 100 Room Air Intake & Output 09/26 1600 09/26 0800 09/26 0000 09/25 1600 09/25 0800 09/25 0000 Intake Total 600 600 600 900 225 Output Total 500 700 300 Balance 100 -100 600 900 -75 Intake, IV 600 600 600 600 225 Intake, Oral 0 0 0 300 Number 0 0 Bowel Movements Output, Urine 500 700 300 Patient 46.72 kg Weight Physical Exam: General Appearance: alert, awake, anxious, comfortable, thin, tearful Head: atraumatic, normal appearance Respiratory: normal breath sounds, chest non-tender, no respiratory distress Cardiovascular: regular rate/rhythm Gastrointestinal: normal bowel sounds, soft, mild tenderness near tube insertion site. Extremities: normal inspection, no edema Neurologic/Psych: alert, oriented x 3 Other Physical Findings: right chest port access and without tenderness Current Medications: Current Medications Sig/Keny Start time Last Medication Dose Route Stop Time Status Admin Acetaminophen 325 MG Q6 PRN 09/19 1345 AC PO Acetaminophen 1,000 MG Q6P PRN 09/19 1345 AC 09/21 IV 0859 Albuterol Sulfate 2 PUF Q4-6 PRN PRN 09/19 1400 AC INH Alprazolam 0.25 MG DAILY NEEDED PRN 09/19 1400 AC 09/19 PO 09/26 1359 1607 Bupropion HCl 100 MG BID 09/19 2200 AC PO Dextrose/Sodium 1,000 ML Q13H 09/21 1200 AC 09/26 Chloride IV 0027 Dronabinol 2.5 MG EVERY 6HRS- NEED.. 09/19 1400 AC PO Enoxaparin Sodium 40 MG DAILY 09/19 1338 DC 09/24 SC 1050 Fentanyl Citrate 200 MCG .STK-MED ONE 09/25 1158 DC IM 09/25 1159 Glucagon 0 .STK-MED ONE 09/25 1234 DC .ROUTE Levothyroxine Sodium 50 MCG DAILY 09/22 1012 AC 09/25 IV 0937 Lidocaine 0 .STK-MED ONE 09/25 1234 DC .ROUTE Lidocaine 15 ML TIDAC 09/24 1200 AC PO Lidocaine 15 ML Q2 HRS NEEDED PRN 09/20 1630 AC 09/23 PO 1206 Lidocaine/Diphenhydr/ 15 ML Q6 PRN 09/25 1200 AC Alum/Mg/Simeth PO Midazolam HCl 2 MG .STK-MED ONE 09/25 1158 DC IM 09/25 1159 Morphine Sulfate 2 MG Q4P PRN 09/19 1345 AC 09/26 IV 0538 Pantoprazole Sodium 40 MG BID 09/19 2200 AC 09/25 IV 2124 Phenol 2 SPRAY Q2P PRN 09/21 1030 AC EXT Polyethylene Glycol 17 GM DAILY 09/23 1159 AC 09/24 PO 1050 Pravastatin Sodium 40 MG DAILY 09/20 1000 AC PO Sucralfate 1 GM 4 TIMES/DAY 09/19 1400 AC 09/23 PO 1822 Trimethobenzamide HCl 200 MG TID PRN 09/19 1515 AC 09/25 IM 1650 Results Last 24 Hours of Lab Results: Laboratory Tests 09/26 0543 Chemistry Sodium (137 - 145 mmol/L) 135 L Potassium (3.5 - 5.1 mmol/L) 3.4 L Chloride (98 - 107 mmol/L) 105 Carbon Dioxide (22 - 30 mmol/L) 27 Anion Gap (5 - 16) 3 L BUN (7 - 17 mg/dL) 3 L Creatinine (0.5 - 1.0 mg/dL) 0.8 Estimated GFR (>60 ml/min) > 60 BUN/Creatinine Ratio (7 - 25 %) 3.8 L Vitamin B12 (239 - 931 pg/mL) Pending Folate (2.76 - 20.0 ng/mL) Pending Hematology CBC w Diff NO MAN DIFF REQ WBC (4.8 - 10.8 /CUMM) 4.4 L RBC (4.20 - 5.40 /CUMM) 2.49 L Hgb (12.0 - 16.0 G/DL) 7.5 L Hct (37 - 47 %) 22.8 L MCV (81.0 - 99.0 FL) 91.5 MCH (27.0 - 31.0 PG) 30.2 RDW (11.5 - 14.5 %) 20.8 H Plt Count (130 - 400 /CUMM) 373 MPV (7.4 - 10.4 FL) 7.0 L Gran % (42.2 - 75.2 %) 65.8 Lymphocytes % (20.5 - 51.1 %) 26.4 Monocytes % (1.7 - 9.3 %) 7.2 Eosinophils % (0 - 5 %) 0.3 Basophils % (0.0 - 2.0 %) 0.3 Absolute Granulocytes (1.4 - 6.5 /CUMM) 2.9 Absolute Lymphocytes (1.2 - 3.4 /CUMM) 1.2 Absolute Monocytes (0.10 - 0.60 /CUMM) 0.3 Absolute Eosinophils (0.0 - 0.7 /CUMM) 0 Absolute Basophils (0.0 - 0.2 /CUMM) 0 PUBS MCHC (33.0 - 37.0 G/DL) 33.0 Assessment/Plan Assessment/Recommendations: Ms. 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 She has been having symptoms for a few weeks without improvement with Carafate and pantoprazole. Restaging scan with CT chest, abdomen, and pelvis demonstrated stable uterine mass and slightly improved lung nodules. There is an area in the RUL which is concerning for pneumonia versus neoplastic. EGD demonstrated severe ulcerative esophagitis with stricture formation. Etiology unclear. OLINDA prep is negative. Pathology is pending but preliminary is non-malignant so far. PEG tube had been placed. She will be started on tube feeding. She is relatively stable today. Anemia and leukopenia are noted. This may be in part due to nutritional deficiency. Vitamin B12 and folate are being checked. She should be monitored for refeeding syndrome. Recommendations: 1. Follow up final pathology on esophagus 2. Continue PPI 3. Continue viscous lidocarine 4. Nutrition/Dietitian for tube feeding 5. Follow up vitamin B12, folate level, and iron levels 6. Monitor for refeeding syndrome Please call [phone] with any questions or concerns. Problem List: 1. Dysphagia 2. Uterine leiomyosarcoma
[2016-09-26 14:30] VITALS: BP 125/62
--- NOTE | 2016-09-26 15:02 | Patient Discharge Instructions ---
Discharge Instructions General Discharge Information You were seen/treated for: DYSPHAGIA AND ODYNOPHAGIA Special Instructions: 1.PLEASE FOLLOW UP WITH PCP WITHIN 1 WEEK OF DISCHARGE. 2.PLEASE FOLLOW UP WITH GI DOCTOR WITHIN 2 WEEKS OF DISCHARGE. 3.PLEASE FOLLOW UP WITH YOUR ONCOLOGIST WITHIN 2 WEEKS OF DISCHARGE. 4. CONTINUE PEG TUBE FEEDS. JEVITY 1.2. RATE : 1ST 8 HRS 10ML, 2ND 8 HRS 20 ML, 3 RD 8 HRS 35 ML...GOAL RATE 50 ML/HR. FLUSHES 50 ML EVERY 6 HRS Diet Recommended Diet: PEG TUBE FEEDS Acute Coronary Syndrome Inclusion Criteria At DC or during hospital stay patient has or had the following: ACS DIAGNOSIS No Discharge Core Measures Meds if any: Prescribed or Continued at Discharge Meds if any: NOT Prescribed or Continued at Discharge Congestive Heart Failure Inclusion Criteria At DC or during hospital stay patient has or had the following: CHF DIAGNOSIS No Discharge Core Measures Meds if any: Prescribed or Continued at Discharge Meds if any: NOT Prescribed or Continued at Discharge Cerebrovascular accident Inclusion Criteria At DC or during hospital stay patient has or had the following: CVA/TIA Diagnosis No Discharge Core Measures Meds if any: Prescribed or Continued at Discharge Meds if any: NOT Prescribed or Continued at Discharge Venous thromboembolism Inclusion Criteria VTE Diagnosis No VTE Type NONE VTE Confirmed by (Test) NONE Discharge Core Measures - Per Current guidelines, there needs to be overlap - treatment for the first 5 days of Warfarin therapy. - If discharged on Warfarin prior to 5 days of - overlap therapy, the patient will need to be - assessed for post discharge needs including - *Post discharge parental anticoagulation - *Warfarin and/or parental anticoagulation education - *Follow up date to check INR post discharge At least 5 days overlap therapy as Inpatient No Meds if any: Prescribed or Continued at Discharge Note: Overlap Therapy is Warfarin and Anticoagulant Meds if any: NOT Prescribed or Continued at Discharge
--- NOTE | 2016-09-26 15:58 | NUR ---
PT DENIES ANY NAUSEA/VOMITING AT THIS TIME. REPORT FROM DAY RN THAT TUBE FEED HAD TO BE STOPPED DUE TO PT FEELING NAUSEOUS AT 1300. RESTARTED TUBE FEED AT 10ML/HR FOR 8 HOURS AT THIS TIME. 0 RESIDUAL. HANDBOOK WRITER KIRSTIN NOTIFIED AND OK. WILL CONTINUE TO MONITOR.
--- NOTE | 2016-09-26 16:07 | NUR ---
TUBE FEEDING STARTED AT 1100 AM PER ORDER AT 10 ML/HR. AT 1300 PT BEGAN FEELING NAUSEOUS AND VOMITING. STOPPED TUBE FEED AND MEDICATED PT FOR NAUSEA. NOTIFIED RAMÍREZ PERDUE OF SITUATION AND WAS TOLD TO KEEP FEED ON HOLD UNTIL NAUSEA SUBSIDED. WILL MONITOR.
--- NOTE | 2016-09-26 16:09 | NUR ---
ATTEMPTED TO CHANGE PORT DSG. PT HAD NAUSEA/VOMITING AND PAIN AND REFUSED DSG CHANGE AT THAT TIME. WILL TRY AGAIN LATER.
--- NOTE | 2016-09-26 17:35 | NUR ---
PT NAUSEOUS AT THIS TIME, TUBE FEED STOPPED. 0 RESIDUAL. STOCK LAYER ISMAIL NOTIFIED. TO STOP TUBE FEED FOR AN HOUR AND THEN RESTART. WILL CONTINUE TO MONITOR.
[2016-09-26 22:27] VITALS: BP 114/60
[2016-09-27 06:43] VITALS: BP 122/80
--- NOTE | 2016-09-27 07:35 | PN- Housestaff ---
KIRSTIN WERNER 09/27/16 0735: Subjective Follow-up For: Metastatic uterine leiomyosarcoma Dysphagia Status post PEG tube placement Subjective: Seen and examined patient.. Offers no complaints. States her pain is better controlled today. Denies fevers, chest pain, chills, shortness of breath Review of Systems Constitutional: Denies: chills, diaphoresis, fever, malaise, weakness, unexplained weight loss. Cardiovascular: Denies: chest pain, edema, orthopena, palpitations, peripheral edema, syncope. Respiratory: Denies: cough, hemoptysis, orthopnea, short of breath, sputum production, stridor, wheezing. Gastrointestinal: Denies: abdominal pain, bloating, constipation, diarrhea, distention, bowel incontinence, melena, nausea, bloody stool, changes in stool, vomiting, steatorrhea. Objective Last 24 Hrs of Vital Signs/I&O Vital Signs Date Time Temp Pulse Resp B/P Pulse O2 O2 Flow FiO2 Ox Delivery Rate 09/27 0643 97.9 55 16 122/80 99 Room Air 09/26 2227 98.0 69 20 114/60 99 Room Air 09/26 1430 98.1 62 20 125/62 90 Intake & Output 09/27 0800 09/27 0000 09/26 1600 Intake Total 600 710 545 Output Total 130 500 350 Balance 470 210 195 Intake, IV 600 600 525 Intake, Tube 60 20 Feeding Intake, Tube 50 Irrigant Number 1 Bowel Movements Output, 130 Gastric Drainage Output, Urine 500 350 Physical Exam General Appearance: Alert, Oriented X3, Cooperative, No Acute Distress Skin: erythematous rash with site of where the bandage was yesterday in the right upper chest wall. Port-A-Cath in right upper chest wall noted Cardiovascular: Normal S1, Normal S2 Lungs: Normal Air Movement Abdomen: Normal Bowel Sounds, Soft, No Tenderness, PEG tube in place no signs of infection surrounding area Extremities: No Edema Current Medications: Current Medications Sig/Keny Start time Last Medication Dose Route Stop Time Status Admin Acetaminophen 325 MG Q6 PRN 09/19 1345 AC PO Acetaminophen 1,000 MG Q6P PRN 09/19 1345 AC 09/21 IV 0859 Albuterol Sulfate 2 PUF Q4-6 PRN PRN 09/19 1400 AC INH Alprazolam 0.25 MG DAILY NEEDED PRN 09/19 1400 DC 09/19 PO 09/26 1359 1607 Bupropion HCl 100 MG BID 09/19 2200 AC 09/26 PO 2110 Dextrose/Sodium 1,000 ML Q13H 09/21 1200 AC 09/27 Chloride IV 0607 Dronabinol 2.5 MG EVERY 6HRS- NEED.. 09/19 1400 DC PO Enoxaparin Sodium 40 MG DAILY 09/26 1415 AC 09/26 SC 1550 Levothyroxine Sodium 50 MCG DAILY 09/22 1012 AC 09/26 IV 0939 Lidocaine 15 ML TIDAC 09/24 1200 AC PO Lidocaine 15 ML Q2 HRS NEEDED PRN 09/20 1630 AC 09/23 PO 1206 Lidocaine/Diphenhydr/ 15 ML Q6 PRN 09/25 1200 AC Alum/Mg/Simeth PO Morphine Sulfate 2 MG Q2 PRN 09/26 1211 AC 09/27 IV 0614 Morphine Sulfate 2 MG Q4P PRN 09/19 1345 DC 09/26 IV 0940 Oxycodone HCl 10 MG Q12 09/26 1000 DC PO Oxycodone/ 2 TAB Q6 PRN 09/26 1215 AC Acetaminophen PO Pantoprazole Sodium 40 MG BID 09/19 2200 AC 09/26 IV 2111 Phenol 2 SPRAY Q2P PRN 09/21 1030 AC EXT Polyethylene Glycol 17 GM DAILY 09/23 1159 AC 09/24 PO 1050 Potassium Chloride 20 MEQ BID 09/26 1453 AC 09/26 PO 2110 Pravastatin Sodium 40 MG DAILY 09/20 1000 AC PO Sucralfate 1 GM 4 TIMES/DAY 09/19 1400 AC 09/23 PO 1822 Tramadol HCl 25 MG Q6P PRN 09/26 1500 AC 09/26 PO 2110 Trimethobenzamide HCl 200 MG TID PRN 09/19 1515 AC 09/26 IM 1315 Last 24 Hrs of Lab/Jose Results Last 24 Hrs of Labs/Mics: Laboratory Tests 09/27/16 0618: Sodium Pending, Potassium Pending, Chloride Pending, Carbon Dioxide Pending, Anion Gap Pending, BUN Pending, Creatinine Pending, BUN/Creatinine Ratio Pending , Phosphorus Pending, CBC w Diff Pending, WBC Pending, RBC Pending, Hgb Pending, Hct Pending, MCV Pending, MCH Pending, RDW Pending, Plt Count Pending, MPV Pending, PUBS MCHC Pending Assessment/Plan Assessment: 65 year old female with past medical history significant for hyperlipidemia, hypothyroidism, chronic back pain, anxiety, depression, 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 difficile positive, current admission for dysphagia now status post PEG tube placement. Currently tolerating her tube feeds. Problem list: Dysphagia Leiomyosarcoma of uterine Anxiety/depression Hyperlipidemia Hypothyroidism Chronic back pain Anemia Plan: H/H stable at 7.5 -Status post PEG tube placement -Jevity 1.2 Tube feeds currently at 20 mL per hour we'll continue to advance to goal rate of 50. -Protonix 40 mg IV twice a day -Dronabinol 2.5 mg by mouth every 6 hours as needed for nausea -Tigan 200 mg IM 3 times a day as needed for nausea -Carafate suspension 1 g by mouth 4 times a day -Appreciate Hematology/oncology commendations -Continue to work with PT -Follow-up pathology -B12/folate levels 873/2.5, Fe 55, TIBC 155 -continue Alprazolam 0.25 mg -continue Bupropion 100 mg -continue Synthroid 50 g IV daily -continue pravastatin 40 mg Pain plan-morphine 2 mg every 4 when necessary for breakthrough pain, Percocet every 6 when necessary Diet-tube feeds started 09/26/16 DVT prophylaxis-Lovenox CODE STATUS-full code Problem List: 1. Metastasis 2. Leiomyosarcoma 3. S/P percutaneous endoscopic gastrostomy (PEG) tube placement Pain Ratin Pain Location: Not applicable Pain Goal: Pain 4 or less Pain Plan: Change 2mg morphine to every 4hrs Tomorrow's Labs & Rationales: none required DIANNE TINSLEY MD 09/27/16 1509: Attending MD Review Statement Attending Statement Attending MD Statement: examined this patient, discuss w/resident/PA/COMPLAINT CLERK, agreed w/resident/PA/COMPLAINT CLERK, reviewed EMR data (avail), discussed with nursing, discussed with case mgmt, amended to note Attending Assessment/Plan: Patient seen and examined. She reports that pain is a little better controlled with adjustments made to her regimen yesterday. Unfortunately OxyContin, be crushed so she is receiving Ultram through her feeding tube. She did not tolerate tube feeds yesterday and was placed on hold. She is doing better today and we are increasing her feeds towards goal. If she tolerates go feeding today she may be discharged home tomorrow. Follow-up by the oncology service appreciated.
--- NOTE | 2016-09-27 08:13 | PN- Oncology ---
Subjective Subjective: She still have some dry heave intermittent. Abdominal pain is improved. She has no fever or chills. She has been started on tube feeding. Review of Systems Constitutional: Denies: chills, fever. Cardiovascular: Denies: chest pain. Gastrointestinal: Reports: abdominal pain, nausea. Denies: diarrhea, vomiting. Genitourinary: Denies: dysuria. Musculoskeletal: Denies: back pain. Skin: Denies: dryness. Neurological/Psychological: Denies: confusion. Hematologic/Endocrine: Denies: bruising, bleeding. All Other Systems: Reviewed and Negative Objective Vital Signs and I&Os Vital Signs Date Time Temp Pulse Resp B/P Pulse O2 O2 Flow FiO2 Ox Delivery Rate 09/27 0643 97.9 55 16 122/80 99 Room Air 09/26 2227 98.0 69 20 114/60 99 Room Air 09/26 1430 98.1 62 20 125/62 90 Intake & Output 09/27 1600 09/27 0800 09/27 0000 09/26 1600 09/26 0800 09/26 0000 Intake Total 600 710 545 600 600 Output Total 130 500 350 500 700 Balance 470 210 195 100 -100 Intake, IV 600 600 525 600 600 Intake, Oral 0 0 Intake, Tube 60 20 Feeding Intake, Tube 50 Irrigant Number 1 0 Bowel Movements Output, 130 Gastric Drainage Output, Urine 500 350 500 700 Physical Exam General Appearance: alert, awake, comfortable Ears, Nose, Throat: normal pharynx Neck: normal inspection Respiratory: chest non-tender, no respiratory distress, quiet respiration Cardiovascular: regular rate/rhythm Abdomen: normal bowel sounds, soft, tenderness (PEG insertion site) Extremities: no edema Neurologic/Psychiatric: alert, oriented x 3 Lymphatic: no anterior cervical ok Current Medications: Current Medications Sig/Keny Start time Last Medication Dose Route Stop Time Status Admin Acetaminophen 325 MG Q6 PRN 09/19 1345 AC PO Acetaminophen 1,000 MG Q6P PRN 09/19 1345 AC 09/21 IV 0859 Albuterol Sulfate 2 PUF Q4-6 PRN PRN 09/19 1400 AC INH Alprazolam 0.25 MG DAILY NEEDED PRN 09/19 1400 DC 09/19 PO 09/26 1359 1607 Bupropion HCl 100 MG BID 09/19 2200 AC 09/26 PO 2110 Dextrose/Sodium 1,000 ML Q13H 09/21 1200 AC 09/27 Chloride IV 0607 Dronabinol 2.5 MG EVERY 6HRS- NEED.. 09/19 1400 DC PO Enoxaparin Sodium 40 MG DAILY 09/26 1415 AC 09/26 SC 1550 Levothyroxine Sodium 50 MCG DAILY 09/22 1012 AC 09/26 IV 0939 Lidocaine 15 ML TIDAC 09/24 1200 AC PO Lidocaine 15 ML Q2 HRS NEEDED PRN 09/20 1630 AC 09/23 PO 1206 Lidocaine/Diphenhydr/ 15 ML Q6 PRN 09/25 1200 AC Alum/Mg/Simeth PO Morphine Sulfate 2 MG Q4-6 PRN PRN 09/27 0745 AC IV Morphine Sulfate 2 MG Q2 PRN 09/26 1211 DC 09/27 IV 0614 Morphine Sulfate 2 MG Q4P PRN 09/19 1345 DC 09/26 IV 0940 Oxycodone HCl 10 MG Q12 09/26 1000 DC PO Oxycodone/ 2 TAB Q6 PRN 09/26 1215 AC Acetaminophen PO Pantoprazole Sodium 40 MG BID 09/19 2200 AC 09/26 IV 2111 Phenol 2 SPRAY Q2P PRN 09/21 1030 AC EXT Polyethylene Glycol 17 GM DAILY 09/23 1159 AC 09/24 PO 1050 Potassium Chloride 20 MEQ BID 09/26 1453 AC 09/26 PO 2110 Pravastatin Sodium 40 MG DAILY 09/20 1000 AC PO Sucralfate 1 GM 4 TIMES/DAY 09/19 1400 AC 09/23 PO 1822 Tramadol HCl 25 MG Q6P PRN 09/26 1500 AC 09/26 PO 2110 Trimethobenzamide HCl 200 MG TID PRN 09/19 1515 AC 09/26 IM 1315 Results Last 24 Hours of Lab Results: Laboratory Tests 09/27 0618 Chemistry Sodium Pending Potassium Pending Chloride Pending Carbon Dioxide Pending Anion Gap Pending BUN Pending Creatinine Pending BUN/Creatinine Ratio Pending Phosphorus Pending Hematology CBC w Diff Pending WBC Pending RBC Pending Hgb Pending Hct Pending MCV Pending MCH Pending RDW Pending Plt Count Pending MPV Pending PUBS MCHC Pending Assessment/Plan Assessment/Recommendations: Ms. 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 She has been having symptoms for a few weeks without improvement with Carafate and pantoprazole. Restaging scan with CT chest, abdomen, and pelvis demonstrated stable uterine mass and slightly improved lung nodules. There is an area in the RUL which is concerning for pneumonia versus neoplastic. EGD demonstrated severe ulcerative esophagitis with stricture formation. Etiology unclear. Pathology is pending but preliminary is non-malignant. PEG tube had been placed and she is tolerating tube feeding. Anemia and leukopenia are noted and is stable. Her folate level is low. Vitamin B12 is normal. Iron demonstrated likely anemia of chronic disease. She can be started on folic acid daily. Refeeding is a risk for her. She should be monitored for refeeding syndrome. Recommendations: 1. Follow up final pathology on esophagus 2. Continue PPI 3. Continue viscous lidocaine 4. Continue tube feeding 5. Start folic acid 1 mg daily 6. Monitor for refeeding syndrome Please call [phone] with any questions or concerns. Problem List: 1. GERD (gastroesophageal reflux disease) 2. Dysphagia 3. S/P percutaneous endoscopic gastrostomy (PEG) tube placement 4. Uterine leiomyosarcoma
[2016-09-27 09:17] LABS: ABSOLUTE BASOPHIL COUNT 0 /CUMM (0.0-0.2); ABSOLUTE EOSINOPHIL COUNT 0.1 /CUMM (0.0-0.7); ABSOLUTE GRANULOCYTE CT 1.4 /CUMM (1.4-6.5); ABSOLUTE LYMPH COUNT 1.4 /CUMM (1.2-3.4); ABSOLUTE MONOCYTE COUNT 0.3 /CUMM (0.10-0.60); BASOPHIL % 0.3 % (0.0-2.0); EOSINOPHIL % 1.8 % (0-5); GRANULOCYTE % 44.7 % (42.2-75.2); HEMATOCRIT 23.7 % (37-47); MEAN CORPUSCULAR HGB CONC 32.4 G/DL (33.0-37.0); MEAN CORPUSCULAR VOLUME 92.5 FL (81.0-99.0); MEAN PLATELET VOLUME 7.1 FL (7.4-10.4); PLATELET COUNT 357 /CUMM (130-400); RBC DISTRIBUTION WIDTH 20.6 % (11.5-14.5); RED BLOOD CELL CT 2.56 /CUMM (4.20-5.40); WHITE BLOOD CELL COUNT 3.2 /CUMM (4.8-10.8)
[2016-09-27] MEDS ORDERED: TRAMADOL HCL50 M1 PO (11:24)
[2016-09-27] MEDS ORDERED: PERCOCET 5-3251 EACH PO (11:24)
--- NOTE | 2016-09-27 11:40 | Discharge Summary ---
Visit Information Visit Dates Admission Date: 09/19/16 Discharge Date: 09/28/16 Hospital Course Course Attending Physician: DIANNE TINSLEY M.D Primary Care Physician: PHU AWAN Hospital Course: Ms. 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 difficile positive pseudomembrane pancolitis, presented to ED with chief complaint of difficulty and painful swallowing of 3 weeks duration. Vitals in the ED, temperature 90.8, pulse 110, respiration 18, blood pressure 116/79, saturating 92% on room air. Labs showed white count of 3.1, H&H of 8.9/26.7(baseline),sodium 135, potassium 3.4, UA pending. EKG showed normal sinus rhythm with a heart rate of 64 2, QTC of 468 Patient was admitted to general medical floor for the following problems: Dyphagia She was kept nothing by mouth and a diet was attempted to be advanced however was unsuccessful beyond liquid diet. CT scan revealed new circumferential wall thickening of the mid/distal esophagus, approximately 9 cm in length extending to the gastroesophageal junction with surrounding soft tissue thickening. GI was consulted and EGD showed severe esophagitis with stricture formation of unclear etiology. Pathology showed squamous mucosa with focal acute inflammation and mild to significant inflammation negative for viral infection or malignancy. Percutaneous gastrostomy tube was placed under CT guidance. Jevity 1.5 tube feeds were started and advanced to goal rate of 50. She was continued on IV PPI and viscous lidocaine 2%. Uterine leiomyosarcoma stage IV Restaging scan with CT chest, abdomen, and pelvis were done demonstrated stable uterine mass and slightly improved lung nodules. Oncology followed her. Advised to follow up with them as outpatient. Hypothyroidism When seen initially was unable to swallow her pills she was given IV levothyroxine once PEG tube was placed her thyroid medications as given by PEG tube. Hypertension and hyperlipidemia Continued home meds of pravastatin DVT prophylaxis with lovenox She was full code Complications: peg tube placement Allergies: Coded Allergies: ibuprofen (Intermediate, KIDNEY AND ABDOMINAL PAIN 04/15/16) Significant Procedures: SERVICE DATE: 09/19/16-124 EXAM TYPE: CAT - CT ABD & PELVIS W IV CONTRAST; CT CHEST W IV CONTRAST FINDINGS: Previously demonstrated parenchymal nodules in the right upper lobe, middle lobe, and lower lobe have slightly decreased in size. There is a new area of consolidation peripherally in the right upper lobe abutting the lateral aspect of the major fissure which may represent pneumonia although a new neoplastic lesion as a possibility. There is a small right pleural effusion which is new. There is circumferential wall thickening of the mid and distal esophagus, approximately 9 cm in length to the gastroesophageal junction, which is new and most likely inflammatory/infectious rather than neoplastic. There is an air-fluid level within the esophagus. There is soft tissue stranding/thickening of the surrounding fat. Small pericardial effusion is similar. The liver, spleen, and pancreas are unremarkable. No biliary ductal dilatation. The adrenal glands appear normal. Stable large right renal cyst. A subcentimeter exophytic soft tissue attenuation lesion at the inferior pole of the left kidney is stable. Circumferential wall thickening of the colon has significantly improved, with persistent areas of wall thickening involving the ascending colon as well as a segment of the sigmoid colon. Scattered diverticulosis. No obstruction. Complex uterine masses do not appear significantly changed. L4 burst fracture is again demonstrated with marked narrowing of the central canal. Possible metastasis within the right aspect of S1, not significantly changed. IMPRESSION: There is new circumferential wall thickening of the mid/distal esophagus, approximately 9 cm in length extending to the gastroesophageal junction with surrounding soft tissue thickening/stranding which is most likely inflammatory/infectious, with esophageal air-fluid level. The colonic wall thickening has significantly improved, with persistent thickening of the ascending colon and a portion of the sigmoid. Similar-appearing complex uterine masses. Stable subcentimeter exophytic left renal lesion. L4 burst fracture with lytic destruction and marked central stenosis. Right upper lobe, middle lobe, and lower lobe nodules have slightly decreased in size. There is a new small area of airspace opacity in the posterolateral aspect of the right upper lobe, abutting the major fissure, which may represent pneumonia. SERVICE DATE: 09/25/16 EXAM TYPE: RAD - CT TUBE PLACEMENT; XRY-FLUOROSCOPY,INDEPEND PROC DESCRIPTION: Informed consent was obtained from the patient prior to the procedure. During this process, the procedure and potential alternatives was explained, along with the intended outcome and benefits. The risks of the procedure, as well as the risk of not doing the procedure, were discussed. The patient was given the opportunity to ask questions regarding the procedure and appeared competent to make medical decisions. A signed consent form which documents this discussion was placed in the medical record. Review was made of the patient's recent CT. This showed a relatively high riding transverse colon with a mobile right colon. There was a relatively narrow window for placement of a gastrostomy. For this reason, the procedure was scheduled under CT guidance. The patient is intubated and anesthesia provided support with the deep sedation. The patient was brought to the CT suite and a final timeout procedure was performed. The patient was placed in the CT gantry in the supine position. Attempt was made to pass a nasogastric tube and a Dobbhoff tube without success due to holdup at the level of the esophagogastric junction. Windshield Technician sections were obtained through the abdomen with a grid device in the left subcostal area. An 18-gauge needle was introduced into the fundus of stomach under CT fluoroscopic guidance. Air was insufflated through the patient's the needle to distend the stomach. The stomach displaced the large and small bowel and there was a adequate window for access. The subxiphoid area and left upper quadrant were sterilely prepped and draped. Following administration of 1% lidocaine, 3 Saf-T-Pexy T-Fasteners were placed sequentially in a triangular configuration into the mid body the stomach via a medial left subcostal approach with return of air. They were secured via the suture locks to oppose the stomach to the anterior abdominal wall. With the stomach still insufflated and following local anesthesia, the safety introducer needle was advanced into the gastric lumen in the center of the Saf-T-Pexy T-Fasteners. Intraluminal positioning of the needle in the stomach was confirmed on CT. An Amplatz stiff guidewire was advanced through the needle and serial dilatations were made to allow advancement of a 24 Yoruba peel-away sheath in the stomach maintaining wire access. A 20 Y[place]uba [place] gastrostomy tube successfully advanced through the peel-away sheath over the wire into the gastric lumen. The retention balloon was filled with 10 mL of normal saline. Injection of contrast was performed through the tube confirming positioning within the gastric lumen. Slotted dressings were placed around the catheter at the entry site and the retention disc was secured. The patient was then brought to the fluoroscopy suite and additional injections of contrast were made through the indwelling gastrostomy tube to confirm position. The G-tube was entering the body the stomach between the 3 Saf-T-Pexy T-Fasteners. Contrast filled the lumen of the stomach without evidence of extravasation. The patient tolerated the procedure well. There was no evidence of immediate complications. Disposition Summary Disposition Principal Diagnosis: Severe esophagitis and esophageal stricture Additional Diagnosis: #Uterine leiomyosarcoma stage IV #Metastatic disease #Electrolyte imbalance #Abnormal CBC #Hypothyroidism #Hypertension and hyperlipidemia Discharge Disposition: home health services Discharge Instructions General Discharge Information Code Status: Full Code Patient's Diet: Jevity 1.5 Patient's Activity: As tolerated Follow-Up Instructions/Appts: FOLLOW UP WITH PCP WITHIN 1 WEEK OF DISCHARGE. FOLLOW UP WITH GI DOCTOR WITHIN 2 WEEKS OF DISCHARGE. FOLLOW UP WITH YOUR ONCOLOGIST WITHIN 2 WEEKS OF DISCHARGE. Medications at Discharge Discharge Medications: Stop taking the following medications: Loperamide HCl (Imodium A-D) 2 MG CAPSULE ORAL NEEDED as needed for DIARRHEA Continue taking these medications: Bupropion HCl (Wellbutrin) 100 MG TABLET 1 Tablet ORAL TWICE DAILY Qty = 60 Granisetron (Sancuso) 3.1 MG/24 HOUR PATCH.TDWK 1 Patch On the skin Qty = 1 Potassium Chloride (Klor-Con 10) 10 MEQ TABLET.ER 2 Tablet ORAL DAILY Days = 7 Comments: Last Taken: 05/01/16 Time: 1025 Famotidine (Famotidine) 40 MG/5 ML (8 MG/ML) ORAL.SUSP 40 Milligram ORAL TWICE DAILY Qty = 150 Alprazolam (Alprazolam) 0.25 MG TABLET 1 Tablet ORAL DAILY NEEDED Qty = 30 Comments: did not receive in hospital Sucralfate (Carafate) 1 GRAM/10 ML ORAL.SUSP 10 Milliliters ORAL 4 TIMES A DAY Qty = 420 Instructions: 1 hour before food and bedtime Diphenoxylate HCl/Atropine (Lomotil 2.5-0.025 MG Tablet) 2.5 MG-0.025 MG TABLET 1 Tablet ORAL 4 TIMES A DAY Dronabinol (Marinol) 2.5 MG CAPSULE 1 Capsule ORAL EVERY 6 HOURS NEEDED Qty = 120 Levothyroxine Sodium (Synthroid) 100 MCG TABLET 1 Tablet ORAL DAILY Multivitamin (Multivitamins) 1 EACH CAPSULE 1 Tablet ORAL Every Day Albuterol Sulfate (Proair Hfa) 90 MCG HFA.AER.AD 2 Puff Inhale through mouth EVERY 4-6 HOURS NEEDED as needed for SOB Qty = 9 Comments: did not receive in hospital Pravastatin Sodium (Pravastatin Sodium) 40 MG TABLET 1 Tablet ORAL Every night Qty = 90 Start taking the following new medications: Oxycodone HCl/Acetaminophen (Percocet 5-325 MG Tablet) 5 MG-325 MG TABLET 1 Tablet ORAL EVERY SIX HOURS as needed for PAIN SCALE 7-10 (SEVERE) Qty = 15 No Refills Tramadol HCl (Tramadol HCl) 50 MG TABLET 25 Milligram ORAL EVERY SIX HOURS NEEDED as needed for PAIN SCALE 4-6 ( MODERATE) Qty = 15 No Refills Lidocaine HCl (Lidocaine HCl Viscous) 2 % SOLUTION 15 Milliliters ORAL EVERY 2 HOURS NEEDED as needed for dysphagia Days = 30 No Refills Polyethylene Glycol 3350 (Miralax) 17 GRAM/DOSE POWDER 17 Gram ORAL DAILY as needed for constipation Days = 30 No Refills Copies To: NAKIA LARES,PHU Vargas Attending MD Review Statement Documenting Attending: DIANNE TINSLEY M.D
[2016-09-27] MEDS ORDERED: LIDOCAINE HCL V15 ML PO (11:48)
[2016-09-27 14:13] VITALS: BP 120/70
[2016-09-27 22:51] VITALS: BP 112/70
--- NOTE | 2016-09-28 06:43 | PN- Housestaff ---
BASIM WERNERKANALewis 09/28/16 0643: Subjective Follow-up For: Metastatic uterine leiomyosarcoma Dysphagia Status post PEG tube placement Subjective: Seen and examined patient. Offers no complaints. Tolerating her tube feeds. Denies fevers, chest pain, chills, shortness of breath Review of Systems Constitutional: Denies: chills, diaphoresis, fever, malaise, weakness, unexplained weight loss. Cardiovascular: Denies: chest pain, edema, orthopena, palpitations, peripheral edema, syncope. Respiratory: Denies: cough, hemoptysis, orthopnea, short of breath, sputum production, stridor, wheezing. Objective Last 24 Hrs of Vital Signs/I&O Vital Signs Date Time Temp Pulse Resp B/P Pulse O2 O2 Flow FiO2 Ox Delivery Rate 09/28 1418 98.0 56 20 136/72 96 09/28 0654 98.1 58 20 138/80 98 Room Air 09/27 2251 98.4 67 20 112/70 97 Room Air Intake & Output 09/28 1600 09/28 0800 09/28 0000 Intake Total 450 420 Output Total 300 600 Balance 150 -180 Intake, Tube 450 370 Feeding Intake, Tube 50 Irrigant Number 0 Bowel Movements Output, Urine 300 600 Physical Exam General Appearance: Alert, Oriented X3, Cooperative Cardiovascular: Regular Rate, Normal S1, Normal S2 Lungs: Clear to Auscultation, Normal Air Movement Abdomen: Normal Bowel Sounds, Soft, No Tenderness, PEG tube in place no signs of an infection and surrounding area Current Medications: Current Medications Sig/Keny Start time Last Medication Dose Route Stop Time Status Admin Acetaminophen 325 MG Q6 PRN 09/19 1345 DCD PO Acetaminophen 1,000 MG Q6P PRN 09/19 1345 DCD 09/21 IV 0859 Albuterol Sulfate 2 PUF Q4-6 PRN PRN 09/19 1400 DCD INH Bupropion HCl 100 MG BID 09/19 2200 DCD 09/28 PO 1009 Enoxaparin Sodium 40 MG DAILY 09/26 1415 DCD 09/28 SC 1045 Levothyroxine Sodium 50 MCG DAILY 09/22 1012 DCD 09/28 IV 1041 Lidocaine 15 ML TIDAC 09/24 1200 DCD PO Lidocaine 15 ML Q2 HRS NEEDED PRN 09/20 1630 DCD 09/23 PO 1206 Lidocaine/Diphenhydr/ 15 ML Q6 PRN 09/25 1200 DCD Alum/Mg/Simeth PO Morphine Sulfate 2 MG Q4-6 PRN PRN 09/27 0745 DCD 09/28 IV 0620 Oxycodone/ 2 TAB Q6 PRN 09/26 1215 DCD 09/28 Acetaminophen PO 1355 Pantoprazole Sodium 40 MG BID 09/19 2200 DCD 09/28 IV 1035 Phenol 2 SPRAY Q2P PRN 09/21 1030 DCD EXT Polyethylene Glycol 17 GM DAILY 09/23 1159 DCD 09/24 PO 1050 Potassium Chloride 20 MEQ BID 09/26 1453 DCD 09/28 PO 1009 Pravastatin Sodium 40 MG DAILY 09/20 1000 DCD PO Sucralfate 1 GM 4 TIMES/DAY 09/19 1400 DCD 09/23 PO 1822 Tramadol HCl 25 MG Q6P PRN 09/26 1500 DCD 09/26 PO 2110 Trimethobenzamide HCl 200 MG TID PRN 09/19 1515 DCD 09/26 IM 1315 Assessment/Plan Assessment: 65 year old female with past medical history significant for hyperlipidemia, hypothyroidism, chronic back pain, anxiety, depression, 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 difficile positive, current admission for dysphagia now status post PEG tube placement. Currently tolerating her tube feeds. Medically stable for discharge to home with home health services today Problem list: Dysphagia Leiomyosarcoma of uterine Anxiety/depression Hyperlipidemia Hypothyroidism Chronic back pain Anemia Plan: -Jevity 1.2 Tube feeds currently at goal rate of 50. Patient would like to have bolus feeds at home spoke to nutrition regarding instructions. Instruction for bolus feeds written on W 10 -Dronabinol 2.5 mg by mouth every 6 hours as needed for nausea -Tigan 200 mg IM 3 times a day as needed for nausea -Carafate suspension 1 g by mouth 4 times a day -Appreciate Hematology/oncology commendations -Continue to work with PT -Follow-up pathology -B12/folate levels 873/2.5, Fe 55, TIBC 155 -continue Alprazolam 0.25 mg -continue Bupropion 100 mg -continue Synthroid 50 g daily thru peg tube -continue pravastatin 40 mg thrue peg tube Pain plan-morphine 2 mg every 4 when necessary for breakthrough pain, Percocet every 6 when necessary Diet-tube feeds started 09/26/16 DVT prophylaxis-Lovenox CODE STATUS-full code Problem List: 1. S/P percutaneous endoscopic gastrostomy (PEG) tube placement 2. Uterine leiomyosarcoma 3. Metastasis Pain Ratin Pain Location: na Pain Goal: Pain 4 or less Pain Plan: Current regimen Tomorrow's Labs & Rationales: none required DIANNE TINSLEY MD 09/28/16 1151: Attending MD Review Statement Attending Statement Attending MD Statement: examined this patient, discuss w/resident/PA/[employer], agreed w/resident/PA/[employer], reviewed EMR data (avail), discussed with nursing, discussed with case mgmt, amended to note Attending Assessment/Plan: Patient seen and examined. She reports that chest pain is still present on and off but it is better controlled with her current pain regimen. She has been tolerating tube feeding at goal. On examination abdomen is soft and nontender with normal bowel sounds. She is currently medically stable to be discharged home. She'll continue to feeding at home. She may continue oral intake as tolerated. She is to follow-up with the oncology service as an outpatient for results of EGD pathology. This has been explained to the patient. She remains anemic but hemoglobin levels are stable.
[2016-09-28 06:54] VITALS: BP 138/80
--- NOTE | 2016-09-28 07:41 | PN- Oncology ---
Subjective Subjective: She still has pain in the esophageal. She has some mild abdominal pain in the PEG tube area. Lidocaine is not helping much. She has no fever or chills. Review of Systems: Constitutional: Denies: chills, fever. Cardiovascular: Denies: chest pain. Gastrointestinal: Reports: abdominal pain, esophageal pain, nausea. Denies: diarrhea, vomiting. Genitourinary: Denies: dysuria. Musculoskeletal: Denies: back pain. Skin: Denies: dryness. Neurological/Psychological: Denies: confusion. Hematologic/Endocrine: Denies: bruising, bleeding. All Other Systems: Reviewed and Negative Objective Vital Signs and I&Os Vital Signs Date Time Temp Pulse Resp B/P Pulse O2 O2 Flow FiO2 Ox Delivery Rate 09/28 0654 98.1 58 20 138/80 98 Room Air 09/27 2251 98.4 67 20 112/70 97 Room Air 09/27 1413 98.0 80 20 120/70 96 Intake & Output 09/28 0800 09/28 0000 09/27 1600 09/27 0800 09/27 0000 09/26 1600 Intake Total 420 265 600 710 545 Output Total 600 370 130 500 350 Balance -180 -105 470 210 195 Intake, IV 600 600 525 Intake, Tube 370 215 60 20 Feeding Intake, Tube 50 50 50 Irrigant Number 1 1 Bowel Movements Output, 130 Gastric Drainage Output, Urine 600 370 500 350 Physical Exam: General Appearance: alert, awake, comfortable Ears, Nose, Throat: normal pharynx Neck: normal inspection Respiratory: chest non-tender, no respiratory distress, quiet respiration Cardiovascular: regular rate/rhythm Abdomen: normal bowel sounds, soft, tenderness (PEG insertion site) Extremities: no edema Neurologic/Psychiatric: alert, oriented x 3 Lymphatic: no anterior cervical ok Current Medications: Current Medications Sig/Keny Start time Last Medication Dose Route Stop Time Status Admin Acetaminophen 325 MG Q6 PRN 09/19 1345 AC PO Acetaminophen 1,000 MG Q6P PRN 09/19 1345 AC 09/21 IV 0859 Albuterol Sulfate 2 PUF Q4-6 PRN PRN 09/19 1400 AC INH Bupropion HCl 100 MG BID 09/19 2200 AC 09/27 PO 2048 Dextrose/Sodium 1,000 ML Q13H 09/21 1200 DC 09/27 Chloride IV 0607 Enoxaparin Sodium 40 MG DAILY 09/26 1415 AC 09/27 SC 0912 Levothyroxine Sodium 50 MCG DAILY 09/22 1012 AC 09/27 IV 0913 Lidocaine 15 ML TIDAC 09/24 1200 AC PO Lidocaine 15 ML Q2 HRS NEEDED PRN 09/20 1630 AC 09/23 PO 1206 Lidocaine/Diphenhydr/ 15 ML Q6 PRN 09/25 1200 AC Alum/Mg/Simeth PO Morphine Sulfate 2 MG Q4-6 PRN PRN 09/27 0745 AC 09/28 IV 0620 Morphine Sulfate 2 MG Q2 PRN 09/26 1211 DC 09/27 IV 0614 Oxycodone/ 2 TAB Q6 PRN 09/26 1215 AC Acetaminophen PO Pantoprazole Sodium 40 MG BID 09/19 2200 AC 09/27 IV 2047 Phenol 2 SPRAY Q2P PRN 09/21 1030 AC EXT Polyethylene Glycol 17 GM DAILY 09/23 1159 AC 09/24 PO 1050 Potassium Chloride 20 MEQ BID 09/26 1453 AC 09/27 PO 2048 Pravastatin Sodium 40 MG DAILY 09/20 1000 AC PO Sucralfate 1 GM 4 TIMES/DAY 09/19 1400 AC 09/23 PO 1822 Tramadol HCl 25 MG Q6P PRN 09/26 1500 AC 09/26 PO 2110 Trimethobenzamide HCl 200 MG TID PRN 09/19 1515 AC 09/26 IM 1315 Assessment/Plan Assessment/Recommendations: Ms. 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 She has been having symptoms for a few weeks without improvement with Carafate and pantoprazole. Restaging scan with CT chest, abdomen, and pelvis demonstrated stable uterine mass and slightly improved lung nodules. There is an area in the RUL which is concerning for pneumonia versus neoplastic. EGD demonstrated severe ulcerative esophagitis with stricture formation. Etiology unclear. Pathology is still pending. PEG tube has been placed. She is tolerating tube feeding. She has minimal nausea. She has no significant diarrhea. Anemia is stable. Folate is low. WBC is also low. This may be a combination of nutritional deficiency and chemotherapy. Recommendations: 1. Follow up final pathology on esophagus 2. Continue PPI and viscous lidocaine 3. Continue tube feeding 4. Start folic acid 1 mg daily today 5. Follow up as outpatient in 1 week Please call [phone] with any questions or concerns. Problem List: 1. Dysphagia 2. GERD (gastroesophageal reflux disease) 3. Uterine leiomyosarcoma 4. Malnutrition
[2016-09-28] MEDS ORDERED: MIRALAX119 GM PO (07:42)
[2016-09-28 14:18] VITALS: BP 136/72
== END 2016-09-28 14:31 | disposition home health service (06) | DRG 392 ==
LOC: ENRESERVTM → ENRESERVDT → ERH 09:12 → 2NA 14:17 → ERHI 14:17 → ENPENDDIS 14:17 → 2NA 15:14
PROVIDERS: Internal Medicine; Internal Medicine Interventional Cardiology; Physician Assistant Medical; Student in an Organized Health Care Education/Training Program; ADMIT Internal Medicine
PROC: 0DB18ZX Excision of Upper Esophagus, Via Natural or Artificial Opening Endoscopic, Diagnostic (ICD-10-PCS; principal; 2016-09-20)
PROC: 0DH63UZ Insertion of Feeding Device into Stomach, Percutaneous Approach (ICD-10-PCS; 2016-09-25)
DX: K22.2 Esophageal obstruction (principal); R64 Cachexia; C79.51 Secondary malignant neoplasm of bone; C78.00 Secondary malignant neoplasm of unspecified lung; D70.1 Agranulocytosis secondary to cancer chemotherapy; E87.1 Hypo-osmolality and hyponatremia; K22.10 Ulcer of esophagus without bleeding; E46 Unspecified protein-calorie malnutrition; Z68.1 Body mass index [BMI] 19.9 or less, adult; R13.10 Dysphagia, unspecified; C55 Malignant neoplasm of uterus, part unspecified; T45.1X5A Adverse effect of antineoplastic and immunosuppressive drugs, initial encounter; E78.5 Hyperlipidemia, unspecified; E03.9 Hypothyroidism, unspecified; F41.8 Other specified anxiety disorders
CPT/HCPCS: 2NAP; 84133; 84300; 36415; 74177; 77012; 81003; 82436; 82570; 87040; 88305; 88312; 93005; 93010; 96361; 96374; 96375; 97116-GO; 97161-GP; 97165-GO; 97530-GO; C1725; J0131; J1610; J1644; J1650; J2270; J2405; J3250; J3490; J7042